=== PATIENT | male | born 1935 | race Caucasian/White ===

== ENCOUNTER 2016-06-02 11:39 | Inpatient (IN) ==
[2016-06-02 12:42] LABS: Immature Granulocytes % 0.2 % (0-4); Mean Corpuscular HGB Conc 34.6 g/dL (31.6-35.5); Red Cell Distribution Width 13.2 % (11.5-14.5)
[2016-06-02 12:43] LABS: Basophils % 0.3 %; Eosinophils # 4.9 K/mcL (0.0-0.6); Hematocrit 36.4 % (37.5-50.1); Hemoglobin 12.6 g/dL (12.9-16.9); Immature Platelets 2.7 % (1.1-6.1); Lymphocytes # 1.9 K/mcL (0.6-4.6); Lymphocytes % 16.3 %; Mean Corpuscular Hemoglobin 32.8 pg (28.0-33.3); Mean Corpuscular Volume 94.8 fL (83.0-100.0); Mean Platelet Volume 9.9 fL (9.4-12.4); Monocytes # 0.4 K/mcL (0.0-1.3); Monocytes % 3.7 %; Neutrophils # 4.4 K/mcL (1.6-8.9); Platelet Count 106 K/mcL (140-400); Red Blood Count 3.84 M/mcL (4.19-5.50); Segmented Neutrophils % 37.5 %
[2016-06-02 12:53] LABS: Alanine Aminotransferase 27 Units/L (0-55); Albumin 2.7 g/dL (3.5-5.0); Albumin/Globulin Ratio 0.9 (1.1-2.2); Alkaline Phosphatase 85 Units/L (38-126); Aspartate Amino Transferase 34 Units/L (5-34); BUN/Creatinine Ratio 18 (6-26); Bilirubin,Total 1.4 mg/dL (0.2-1.2); Blood Urea Nitrogen 18 mg/dL (8-26); Calcium 8.4 mg/dL (8.6-10.8); Carbon Dioxide 24 mEq/L (19-29); Chloride 106 mEq/L (98-109); Globulin 3.1 g/dL (2.4-3.5); Glucose 106 mg/dL (70-99); Osmolality,Calculated 284 (280-300); Potassium 3.9 mEq/L (3.5-4.5); Sodium 136 mEq/L (136-145); Total Protein 5.8 g/dL (6.0-8.3); eGFR For African Americans > 60 (> 60); eGFR For Non-African Americans > 60 (> 60)
[2016-06-02 13:00] LABS: Anisocytosis 1+ (Not Present); Platelet Estimate Slight Decrease (Normal)
[2016-06-02 13:01] LABS: Poikilocytosis 2+ (Not Present)
--- NOTE | 2016-06-02 13:23 | Emergency Department Note ---
Disposition Clinical Impression: Pneumonia, Mitral valve stenosis Disposition: Admitted As Inpatient Condition: Good General Adult HPI - General Chief complaint: ED Shortness of Breath/Dyspnea Stated complaint: cough, swelling Time Seen by Provider: 06/02/16 12:08 Source: patient, family Limitations: no limitations - History of Present Illness Pain Scale: 0 - Related Data Home Medications Medication Instructions Recorded Confirmed Albuterol Sulfate [Proair Hfa] 2 puff IH Q4H PRN 06/02/16 06/02/16 Aspirin [Lo-Dose Aspirin EC] 81 mg PO DAILY 06/02/16 06/02/16 Budesonide Neb [Pulmicort Neb] 0.5 mg IH DAILY 06/02/16 06/02/16 Cetirizine HCl [All Day Allergy] 10 mg PO DAILY 06/02/16 06/02/16 Cranberry Conc/C/Bacill Coag [Azo 1 tab PO DAILY 06/02/16 06/02/16 Cranberry Tablet] Docusate [Colace] 100 mg PO DAILY 06/02/16 06/02/16 Finasteride [Proscar] 5 mg PO DAILY 06/02/16 06/02/16 Formoterol Fumarate [Perforomist] 20 mcg IH BID 06/02/16 06/02/16 Ibuprofen [Motrin] 400 mg PO TID PRN 06/02/16 06/02/16 Levothyroxine [Synthroid] 50 mcg PO DAILY 06/02/16 06/02/16 Montelukast [Singulair] 10 mg PO DAILY 06/02/16 06/02/16 Simvastatin [Zocor] 20 mg PO DAILY 06/02/16 06/02/16 Tamsulosin [Flomax] 0.4 mg PO DAILY 06/02/16 06/02/16 Tramadol HCl [Ultram] 50 mg PO QID PRN 06/02/16 06/02/16 Allergies Allergy/AdvReac Type Severity Reaction Status Date / Time No Known Allergies Allergy Verified 06/02/16 12:01 Past Medical History - Past Medical History Medical history: Reports: asthma, COPD, CVA, hyperlipidemia, hypertension Psychiatric history: Reports: no psych history - Social History Smoking Status: Never smoker Smokeless Tobacco Status: No Alcohol use: Reports: none Drug use: Reports: none Physical Exam - General Limitations: no limitations General appearance: alert, in no apparent distress Course - Reevaluation(s) Reevaluation #1: I saw the patient with resident, Dr. Narvaez. Patient presents with shortness of breath. This is progressively worsening over days. It is so bad he cannot walk from one room to the bathroom without having to stop in the middle because of shortness of breath. Daughter says he had a really rough time last night with shortness of breath while trying to lay down. However patient denies feeling extra short of breath and laying down and states that he really gets more short of breath when he is up and exerting himself. He denies chest pain any time. Coughing up thick white stuff. Recently treated for pneumonia and was doing well then started getting sick again. We are trying to determine whether this is a recurrence of pneumonia or if this is congestive heart failure. He does have edema in his legs and a chest x-ray that looks like failure although the BNP is normal. Disposition will be based on the rest of the diagnostic results and reevaluation. Time: 13:23 Vital Signs Temperature 98.1 F 06/02/16 11:56 Pulse Rate 76 06/02/16 11:56 Respiratory Rate 18 06/02/16 11:56 Blood Pressure 148/88 06/02/16 11:56 O2 Sat by Pulse Oximetry 95 06/02/16 11:56 Temperature 97.5 F L 06/05/16 07:39 Pulse Rate 64 06/05/16 07:39 Respiratory Rate 17 06/05/16 07:39 Blood Pressure 111/61 06/05/16 07:39 O2 Sat by Pulse Oximetry 95 06/05/16 07:39 Oxygen Delivery Oxygen Delivery Room Air Medical Decision Making - Lab Data Result diagrams: 06/04/16 04:02 06/04/16 15:50 Lab Results 06/02/16 06/02/16 06/02/16 Range/Units 12:26 12:26 12:26 WBC 11.6 H (4.3-11.1) K/mcL RBC 3.84 L (4.19-5.50) M/mcL Hgb 12.6 L (12.9-16.9) g/dL Hct 36.4 L (37.5-50.1) % MCV 94.8 (83.0-100.0) fL MCH 32.8 (28.0-33.3) pg MCHC 34.6 (31.6-35.5) g/dL RDW 13.2 (11.5-14.5) % Plt Count 106 L (140-400) K/mcL MPV 9.9 (9.4-12.4) fL Immature Gran % 0.2 (0-4) % Seg Neutrophils % 37.5 % Lymphocytes % 16.3 % Monocytes % 3.7 % Eosinophils % 42.0 % Basophils % 0.3 % Neutrophils # 4.4 (1.6-8.9) K/mcL Lymphocytes # 1.9 (0.6-4.6) K/mcL Monocytes # 0.4 (0.0-1.3) K/mcL Eosinophils # 4.9 H (0.0-0.6) K/mcL Basophils # 0.0 (0.0-0.2) K/mcL Platelet Estimate Slight Decrease L (Normal) Immature Plt Fraction 2.7 (1.1-6.1) % Poikilocytosis 2+ A (Not Present) Anisocytosis 1+ A (Not Present) Smear Path Review See Below Sodium (136-145) mEq/L Potassium (3.5-4.5) mEq/L Chloride (98-109) mEq/L Carbon Dioxide (19-29) mEq/L BUN (8-26) mg/dL Creatinine (0.72-1.25) mg/dL Est GFR ( Amer) (> 60) Est GFR (Non-Af Amer) (> 60) BUN/Creatinine Ratio (6-26) Glucose (70-99) mg/dL Calculated Osmolality (280-300) Calcium (8.6-10.8) mg/dL Total Bilirubin (0.2-1.2) mg/dL AST (5-34) Units/L ALT (0-55) Units/L Alkaline Phosphatase (38-126) Units/L Troponin I 0.01 (0-0.03) ng/mL B-Natriuretic Peptide 92 (0-100) pg/mL Serum Total Protein (6.0-8.3) g/dL Albumin (3.5-5.0) g/dL Globulin (2.4-3.5) g/dL Albumin/Globulin Ratio (1.1-2.2) 01/02/17 Range/Units 12:26 WBC (4.3-11.1) K/mcL RBC (4.19-5.50) M/mcL Hgb (12.9-16.9) g/dL Hct (37.5-50.1) % MCV (83.0-100.0) fL MCH (28.0-33.3) pg MCHC (31.6-35.5) g/dL RDW (11.5-14.5) % Plt Count (140-400) K/mcL MPV (9.4-12.4) fL Immature Gran % (0-4) % Seg Neutrophils % % Lymphocytes % % Monocytes % % Eosinophils % % Basophils % % Neutrophils # (1.6-8.9) K/mcL Lymphocytes # (0.6-4.6) K/mcL Monocytes # (0.0-1.3) K/mcL Eosinophils # (0.0-0.6) K/mcL Basophils # (0.0-0.2) K/mcL Platelet Estimate (Normal) Immature Plt Fraction (1.1-6.1) % Poikilocytosis (Not Present) Anisocytosis (Not Present) Smear Path Review Sodium 136 (136-145) mEq/L Potassium 3.9 (3.5-4.5) mEq/L Chloride 106 (98-109) mEq/L Carbon Dioxide 24 (19-29) mEq/L BUN 18 (8-26) mg/dL Creatinine 0.99 (0.72-1.25) mg/dL Est GFR ( Amer) > 60 (> 60) Est GFR (Non-Af Amer) > 60 (> 60) BUN/Creatinine Ratio 18 (6-26) Glucose 106 H (70-99) mg/dL Calculated Osmolality 284 (280-300) Calcium 8.4 L (8.6-10.8) mg/dL Total Bilirubin 1.4 H (0.2-1.2) mg/dL AST 34 (5-34) Units/L ALT 27 (0-55) Units/L Alkaline Phosphatase 85 (38-126) Units/L Troponin I (0-0.03) ng/mL B-Natriuretic Peptide (0-100) pg/mL Serum Total Protein 5.8 L (6.0-8.3) g/dL Albumin 2.7 L (3.5-5.0) g/dL Globulin 3.1 (2.4-3.5) g/dL Albumin/Globulin Ratio 0.9 L (1.1-2.2) Attestation Statement - Attestation Attestation: I, Dr. Calvillo, examined this patient [id number] and my medical decision- making was reviewed with Dr. Narvaez, Resident Physician. I agree with the documented findings, disposition and treatment plan as described except to the extent set forth below. Please see my progress notes for details.
[2016-06-02] MEDS ORDERED: GI Cocktail 40 ML EACH PO ONE (13:34)
--- NOTE | 2016-06-02 14:13 | Emergency Department Note ---
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 Patient was diagnosed with pneumonia 3 weeks ago. Patient has been battling fatigue and exertional dyspnea since this time. However the patient's symptoms got worse and he is unable to make it to the restroom at this point. Patient has been coughing up white and green sputum. Patient has a history of mitral valve stenosis. Pain Scale: 0 - Related Data Home Medications Medication Instructions Recorded Confirmed Albuterol Sulfate [Proair Hfa] 2 puff IH Q4H PRN 06/02/16 06/02/16 Aspirin [Lo-Dose Aspirin EC] 81 mg PO DAILY 06/02/16 06/02/16 Budesonide Neb [Pulmicort Neb] 0.5 mg IH DAILY 06/02/16 06/02/16 Cetirizine HCl [All Day Allergy] 10 mg PO DAILY 06/02/16 06/02/16 Cranberry Conc/C/Bacill Coag [Azo 1 tab PO DAILY 06/02/16 06/02/16 Cranberry Tablet] Docusate [Colace] 100 mg PO DAILY 06/02/16 06/02/16 Finasteride [Proscar] 5 mg PO DAILY 06/02/16 06/02/16 Formoterol Fumarate [Perforomist] 20 mcg IH BID 06/02/16 06/02/16 Ibuprofen [Motrin] 400 mg PO TID PRN 06/02/16 06/02/16 Levothyroxine [Synthroid] 50 mcg PO DAILY 06/02/16 06/02/16 Montelukast [Singulair] 10 mg PO DAILY 06/02/16 06/02/16 Simvastatin [Zocor] 20 mg PO DAILY 06/02/16 06/02/16 Tamsulosin [Flomax] 0.4 mg PO DAILY 06/02/16 06/02/16 Tramadol HCl [Ultram] 50 mg PO QID PRN 06/02/16 06/02/16 Allergies Allergy/AdvReac Type Severity Reaction Status Date / Time No Known Allergies Allergy Verified 06/02/16 12:01 Constitutional: Reports: chills, weakness. Denies: fever Eyes: Denies: eye pain ENT ED: Denies: ear pain Cardiovascular: Denies: chest pain Respiratory: Reports: cough, dyspnea, wheezes Gastrointestinal: Denies: abdominal pain, nausea Genitourinary: Denies: urgency Musculoskeletal: Denies: back pain Integumentary: Denies: rash Neurological: Denies: headache, weakness Psychiatric: Denies: anxiety Endocrine: Denies: fatigue Hematological/Lymphatic: Denies: easy bleeding Past Medical History - Past Medical History Medical history: Reports: asthma, COPD, CVA, hyperlipidemia, hypertension Psychiatric history: Reports: no psych history - Social History Smoking Status: Never smoker Smokeless Tobacco Status: No Alcohol use: Reports: none Drug use: Reports: none Physical Exam - General Limitations: no limitations General appearance: alert, in no apparent distress - Head Head exam: atraumatic - Eye Eye exam: Present: normal appearance - ENT ENT exam: normal exam - Neck Neck exam: Present: normal inspection - Chest Chest inspection: Present: normal inspection - Respiratory Respiratory exam: Present: other (rales and rhonchi to right lobe.). Absent: respiratory distress - Cardiovascular Cardiovascular exam: Present: regular rate, normal rhythm - Abdominal Exam Abdominal exam: Present: soft, Non-Tender - Extremities Exam Extremities exam: Present: other (Slight swelling of the left leg but the patient states is consistent with previous episodes of swelling.) - Back Exam Back exam: Present: normal inspection - Neurological Exam Neurological exam: Present: alert, oriented X3 - Psychiatric Psychiatric exam: Present: normal affect Course - Reevaluation(s) Reevaluation #1: Patient findings discussed with patient and daughter. Patient has significant fatigue and decreased exertional dyspnea. Patient unable to go home at this time. Patient failed outpatient therapy on Augmentin. - Consultations Consultation #1: Discussed with Dr. Sanchez. Patient excepted for admission. Vital Signs Temperature 98.1 F 06/02/16 11:56 Pulse Rate 76 06/02/16 11:56 Respiratory Rate 18 06/02/16 11:56 Blood Pressure 148/88 06/02/16 11:56 O2 Sat by Pulse Oximetry 95 06/02/16 11:56 Temperature 98.1 F 06/02/16 11:56 Pulse Rate 67 06/02/16 16:56 Respiratory Rate 18 06/02/16 16:56 Blood Pressure 144/93 06/02/16 16:56 O2 Sat by Pulse Oximetry 96 06/02/16 16:56 Oxygen Delivery Oxygen Delivery Room Air Medical Decision Making - Medical Records Medical records reviewed: Yes I reviewed the patient's medical records. - Lab Data Lab results reviewed: Yes I reviewed the patient's lab results. Result diagrams: 06/02/16 12:26 06/02/16 12:26 Lab Results 06/02/16 06/02/16 06/02/16 Range/Units 12:26 12:26 12:26 WBC 11.6 H (4.3-11.1) K/mcL RBC 3.84 L (4.19-5.50) M/mcL Hgb 12.6 L (12.9-16.9) g/dL Hct 36.4 L (37.5-50.1) % MCV 94.8 (83.0-100.0) fL MCH 32.8 (28.0-33.3) pg MCHC 34.6 (31.6-35.5) g/dL RDW 13.2 (11.5-14.5) % Plt Count 106 L (140-400) K/mcL MPV 9.9 (9.4-12.4) fL Immature Gran % 0.2 (0-4) % Seg Neutrophils % 37.5 % Lymphocytes % 16.3 % Monocytes % 3.7 % Eosinophils % 42.0 % Basophils % 0.3 % Neutrophils # 4.4 (1.6-8.9) K/mcL Lymphocytes # 1.9 (0.6-4.6) K/mcL Monocytes # 0.4 (0.0-1.3) K/mcL Eosinophils # 4.9 H (0.0-0.6) K/mcL Basophils # 0.0 (0.0-0.2) K/mcL Platelet Estimate Slight Decrease L (Normal) Immature Plt Fraction 2.7 (1.1-6.1) % Poikilocytosis 2+ A (Not Present) Anisocytosis 1+ A (Not Present) Smear Path Review See Below Sodium (136-145) mEq/L Potassium (3.5-4.5) mEq/L Chloride (98-109) mEq/L Carbon Dioxide (19-29) mEq/L BUN (8-26) mg/dL Creatinine (0.72-1.25) mg/dL Est GFR ( Amer) (> 60) Est GFR (Non-Af Amer) (> 60) BUN/Creatinine Ratio (6-26) Glucose (70-99) mg/dL Calculated Osmolality (280-300) Calcium (8.6-10.8) mg/dL Total Bilirubin (0.2-1.2) mg/dL AST (5-34) Units/L ALT (0-55) Units/L Alkaline Phosphatase (38-126) Units/L Troponin I 0.01 (0-0.03) ng/mL B-Natriuretic Peptide 92 (0-100) pg/mL Serum Total Protein (6.0-8.3) g/dL Albumin (3.5-5.0) g/dL Globulin (2.4-3.5) g/dL Albumin/Globulin Ratio (1.1-2.2) 06/02/16 Range/Units 12:26 WBC (4.3-11.1) K/mcL RBC (4.19-5.50) M/mcL Hgb (12.9-16.9) g/dL Hct (37.5-50.1) % MCV (83.0-100.0) fL MCH (28.0-33.3) pg MCHC (31.6-35.5) g/dL RDW (11.5-14.5) % Plt Count (140-400) K/mcL MPV (9.4-12.4) fL Immature Gran % (0-4) % Seg Neutrophils % % Lymphocytes % % Monocytes % % Eosinophils % % Basophils % % Neutrophils # (1.6-8.9) K/mcL Lymphocytes # (0.6-4.6) K/mcL Monocytes # (0.0-1.3) K/mcL Eosinophils # (0.0-0.6) K/mcL Basophils # (0.0-0.2) K/mcL Platelet Estimate (Normal) Immature Plt Fraction (1.1-6.1) % Poikilocytosis (Not Present) Anisocytosis (Not Present) Smear Path Review Sodium 136 (136-145) mEq/L Potassium 3.9 (3.5-4.5) mEq/L Chloride 106 (98-109) mEq/L Carbon Dioxide 24 (19-29) mEq/L BUN 18 (8-26) mg/dL Creatinine 0.99 (0.72-1.25) mg/dL Est GFR ( Amer) > 60 (> 60) Est GFR (Non-Af Amer) > 60 (> 60) BUN/Creatinine Ratio 18 (6-26) Glucose 106 H (70-99) mg/dL Calculated Osmolality 284 (280-300) Calcium 8.4 L (8.6-10.8) mg/dL Total Bilirubin 1.4 H (0.2-1.2) mg/dL AST 34 (5-34) Units/L ALT 27 (0-55) Units/L Alkaline Phosphatase 85 (38-126) Units/L Troponin I (0-0.03) ng/mL B-Natriuretic Peptide (0-100) pg/mL Serum Total Protein 5.8 L (6.0-8.3) g/dL Albumin 2.7 L (3.5-5.0) g/dL Globulin 3.1 (2.4-3.5) g/dL Albumin/Globulin Ratio 0.9 L (1.1-2.2) - Radiology Data Radiology results reviewed: Yes I reviewed the patient's radiology results. - EKG Data EKG #1 EKG attestation: Yes I reviewed and interpreted this EKG. EKG results narrative: We did EKG shows sinus bradycardia with particular rate of 56 bpm. [place] interval 164. QRS 97. QTC 402. Patient has no ST elevations or depressions. No Q waves are present. EKG without acute changes compared to 12/26/14.
[2016-06-02] MEDS ORDERED: Levofloxacin 750 MG/150 ML 750 MG/150 ML BAG IVPB ONE (15:39)
[2016-06-02] MEDS ORDERED: Piperacillin/Tazobactam 3.375 GM in D5% in Water (Mini-Bag+) 100 ML IVPB ONE (15:39)
[2016-06-02] MEDS ORDERED: Furosemide 20 MG/2 ML VIAL IVP ONE (15:42)
[2016-06-02] MEDS ORDERED: Naloxone 0.4 MG/ML INJ IVP PRN (17:54)
[2016-06-02] MEDS ORDERED: traMADol 50 MG TABLET PO PRN (18:13)
[2016-06-02] MEDS ORDERED: Pantoprazole 40 MG VIAL IVP ONE (18:20)
--- NOTE | 2016-06-02 18:33 | Internal Med History&Physical ---
<Mago Alexis M - Last Filed: 06/02/16 19:14> Date of Encounter: 06/02/16 Time of Encounter: 18:25 Assessment and Plan (1) Pneumonia Current visit: Yes Status: Acute Patient presents with cough and shortness of breath, CXR show bibasilar opacities and bilateral effusion. He was diagnosed with pneumonia 3 weeks ago and treated with steroids and Augmentin as an outpatient. ED initiated Levaquin and Zosyn. Will continue Levaquin. Will obtain 2 view CXR tomorrow to reassess. titrate O2 to maintain O2 saturation > 92%, Duoneb treatments QIDR Qualifiers: Pneumonia type: due to unspecified organism Laterality: bilateral Lung location: unspecified part of lung Qualified Code(s): J18.9 - Pneumonia, unspecified organism (2) Acute exacerbation of chronic obstructive airways disease Current visit: Yes Status: Acute Patient presents with cough and increasing shortness of breath. Was treated for pneumonia with Augmentin and steroids 3 weeks ago. CXR showed bibasilar opacities and bilateral effusions. Lungs with mild wheeze on expiration. Satting 95% on room air. Prednisone 40mg PO daily Duoneb treatments QIDR titrate O2 to maintain O2 saturation > 92% (3) Leg edema, left Current visit: Yes Status: Acute Patient's left leg reportedly always swells more than right due to history of left hip replacement. He reports his left leg has felt heavier and "like weight" over the last week. capillary refill normal, sensation intact. Will get Left lower extremity vascular dopplers to rule out DVT (4) Chest pain Current visit: Yes Status: Acute Patient reports he had burning chest pain last night and today unrelieved by tums, though he describes it at "heartburn" and that he can feel the acid and it comes at goes. EKG with NSR. initial troponin 0.01. GI cocktail in ED releived his pain. Will start him on PPI. Will trend troponins. Qualifiers: Chest pain type: precordial chest pain Qualified Code(s): R07.2 - Precordial pain (5) DVT prophylaxis Current visit: Yes Status: Acute Will rule out DVT in LLE. Once ruled out, will initiate mechanical prophylaxis. Patient with thrombocytopenia, PLT of 106, so pharmacologic prophylaxis not warranted at this point. Internal Medicine - H&P: HPI Chief complaint: shortness of breath Admitted From: Emergency Dept Plans for Post Hospital Care: Home History of present illness: Mr. Keenan is a 80 year old male with history of COPD, TIA, mitral valve stenosis, hypertension, hyperlipidemia who was brought to the emergency department by his daughter for increasing shortness of breath. Patient had difficulty walking today due to shortness of breath. 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 His daughter reports he seemed to be doing better for a few days and then started to decline. He also reports heartburn with onset last evening unrelieved by Tums he describes it as a burning chest pain and he feels the acid. Daughter states that he has never had acid reflux in the past like this, just heartburn from time to time. He also reports his left leg has been more swollen and feels like weight over the last week. History of a left hip replacement and his left leg does tend to swell more than his right historically. He reports he has been coughing on and off with clear to white sputum. He denies any fever, headache, palpitations, chills, nausea, vomiting, or diarrhea. Evaluation in the emergency department showed a chest x-ray with bibasilar opacities and bilateral effusions interpreted as pulmonary edema with possible superimposed infection. Troponin was negative at 0.01, BNP normal at 92. Platelets were low at 106. On exam the patient appears cachexic, comfortable, is alert and oriented 3, satting 95% on room air. His lungs have mild expiratory wheeze right worse than left. Heart with regular rate and rhythm. Right ankle appears deformed with swelling. Patient's daughter reports that is chronic. Left leg more swollen than the right, with +2 edema. The patient's case was discussed with Dr. Sanchez, and he agreed with the assessment and plan set forth. Past Med Surg Social Fam HX - Past Medical History Medical history: asthma, COPD, CVA, hyperlipidemia, hypertension, valvular heart disease (mitral valve stenosis) Psychiatric history: no psych history - Past Surgical History Surgical History: hip replacement (left) - Social History Smoking Status: Never smoker Smokeless Tobacco Status: No Alcohol use: none Drug use: none - Family History Mother Living Status: Internal Medicine - H&P: Meds Albuterol Sulfate [Proair Hfa] 2 puff IH Q4H PRN 06/02/16 [History] Aspirin [Lo-Dose Aspirin EC] 81 mg PO DAILY 06/02/16 [History] Budesonide Neb [Pulmicort Neb] 0.5 mg IH DAILY 06/02/16 [History] Cetirizine HCl [All Day Allergy] 10 mg PO DAILY 06/02/16 [History] Cranberry Conc/C/Bacill Coag [Azo Cranberry Tablet] 1 tab PO DAILY 06/02/16 [ History] Docusate [Colace] 100 mg PO DAILY 06/02/16 [History] Finasteride [Proscar] 5 mg PO DAILY 06/02/16 [History] Formoterol Fumarate [Perforomist] 20 mcg IH BID 06/02/16 [History] Ibuprofen [Motrin] 400 mg PO TID PRN 06/02/16 [History] Levothyroxine [Synthroid] 50 mcg PO DAILY 06/02/16 [History] Montelukast [Singulair] 10 mg PO DAILY 06/02/16 [History] Simvastatin [Zocor] 20 mg PO DAILY 06/02/16 [History] Tamsulosin [Flomax] 0.4 mg PO DAILY 06/02/16 [History] Tramadol HCl [Ultram] 50 mg PO QID PRN 06/02/16 [History] Allergies No Known Allergies Allergy (Verified 06/02/16 12:01) All Systems PM: A 10-system review of systems was performed and is negative for pertinent findings except as documented above in the HPI. - Constitutional Constitutional: anorexia, no chills, no fever(s), no night sweats - EENT Eyes: no change in vision, no discharge, no pain, no photophobia Nose, mouth and throat: no dysphagia, no nasal discharge, no neck pain, no sore throat - Cardiovascular Cardiovascular ROS IM: chest pain (burning), no diaphoresis, no dyspnea, no lightheadedness, no palpitations, no syncope - Respiratory Respiratory: cough, dyspnea, dyspnea on exertion, no wheezing, no excessive phlegm production - Gastrointestinal Gastrointestinal: constipation, no abdominal pain, no diarrhea, no hematemesis, no hematochezia, no melena, no nausea, no vomiting - Genitourinary Genitourinary ROS male: difficulty urinating, urinary hesitancy - Musculoskeletal Musculoskeletal ROS IM: no numbness, no tingling - Integumentary Integumentary IM: no rash, no unusual bruising - Neurological Neurological ROS: no confusion, no convulsions, no focal weakness, no numbness, no tingling, no tremor(s) - Hematologic/Lymphatic Hematologic/Lymphatic: no easy bruising - Constitutional Vitals: Temp Pulse Resp BP Pulse Ox 0 F L 67 18 151/94 96 06/02/16 17:41 06/02/16 16:56 06/02/16 17:41 06/02/16 17:41 06/02/16 16:56 General appearance: Present: cachectic, A&O X 3, pleasant, no acute distress - Head Head exam: Present: atraumatic, normocephalic - Eye Eye exam: Present: PERRL, conjuntiva pink, sclera anicteric Pupils: Present: PERRL - Neck Neck exam general surgery: Present: supple, trachea midline. Absent: lymphadenopathy - Respiratory Respiratory exam: Present: wheezes. Absent: accessory muscle use, rales, rhonchi - Cardiovascular Cardiovascular exam: Present: RRR, +S1, +S2. Absent: diastolic murmur, gallop, rubs, systolic murmur - GI/Abdominal GI/Abdominal exam: Present: hernia (right inguinal), normal bowel sounds, soft, no peritoneal signs. Absent: distended, tenderness - Extremities Exam Extremities exam: Present: pedal edema, warm, radial pulses palpable and symetrical. Absent: calf tenderness, cyanotic Additional comments: right ankle edema, left leg edema - Neurological Exam Neurological exam: Present: CN II-XII intact, oriented X3, no focal deficits. Absent: facial droop, speech deficit - Skin Skin exam: Present: dry, intact Internal Med - H&P Results - Labs CBC & Chem 7: 06/02/16 12:26 06/02/16 12:26 <Yayo Sanchez - Last Filed: 06/03/16 14:57> Date of Encounter: 06/03/16 Internal Medicine - H&P: HPI History of present illness: Mr. Keenan is a 80 year old male All Systems PM: A 10-system review of systems was performed and is negative for pertinent findings except as documented above in the HPI. - Constitutional Vitals: Temp Pulse Resp BP Pulse Ox 97.3 F L 78 18 130/76 95 06/03/16 11:14 06/03/16 11:14 06/03/16 11:14 06/03/16 13:00 06/03/16 11:14 Internal Med - H&P Results - Labs CBC & Chem 7: 06/03/16 00:54 06/03/16 00:54 Labs: Short CBC 06/03/16 Range/Units 00:54 WBC 8.0 (4.3-11.1) K/mcL Hgb 11.0 L D (12.9-16.9) g/dL Hct 31.8 L (37.5-50.1) % Plt Count 79 L (140-400) K/mcL Neutrophils # 3.9 (1.6-8.9) K/mcL BMP 06/03/16 00:54 Sodium 135 L Potassium 3.8 Chloride 106 Carbon Dioxide 25 BUN 18 Creatinine 0.97 Glucose 92 Calcium 7.6 L Cardiac Enzymes 06/02/16 06/03/16 Range/Units 18:49 00:54 Troponin I 0.01 0.01 (0-0.03) ng/mL Urine 06/02/16 Range/Units 20:10 Urine Color Yellow (Yellow) Urine Clarity Clear (Clear) Urine pH 7.5 (5.0-8.0) pH Units Ur Specific Cooter 1.008 L (1.010-1.025) Urine Protein Negative (Neg-Trace) mg/dL Urine Glucose (UA) Normal (Normal) mg/dL - Impressions ITS Impressions Chest X-Ray 06/03/16 08:00 IMPRESSION: Evidence of mild residual congestive failure with asymmetric basilar airspace disease greater left lower lobe. Superimposed pneumonia considered. D/ / Mack Goldberg MD / Mack Goldberg MD Interpreting Provider: Mack Goldberg MD - Attending Attestation The patient was seen and examined by me independently. I agree with the assessment, plan, physical examination findings as documented by our nurse practitioner, Mago Alexis. Briefly, patient with clinical findings concerning for community-acquired pneumonia along with some fluid overload was admitted. Will continue with IV antibiotics and will give Lasix. Monitor electrolytes and kidney function tests while inpatient. Plan of care was discussed in detail with the patient.
[2016-06-02] MEDS: *HR* Heparin 5,000 UNIT/ML VIAL SQ SCH (18:51)
[2016-06-02 20:26] LABS: Bilirubin,Urine Negative (Negative); Blood,Urine Large (Negative); Clarity,Urine Clear (Clear); Color,Urine Yellow (Yellow); Glucose,Urine (UA) Normal (Normal); Ketones,Urine Negative (Negative); Leukocyte Esterase,Urine Negative (Negative); Nitrite,Urine Negative (Negative); PH,Urine 7.5 pH Units (5.0-8.0); Protein,Urine Negative (Neg-Trace); Specific Gravity,Urine 1.008 (1.010-1.025); Urobilinogen,Urine Normal (Normal)
[2016-06-02 20:46] LABS: Bacteria,Urine None Seen per hpf (None-Few); Hyaline Casts,Urine None Seen per lpf (None-Few); RBC,Urine 15-30 per hpf (0-3)
[2016-06-02] MEDS: Ipratropium/Albuterol Neb 3 ML IH SCH (22:21)
[2016-06-03 01:17] LABS: Mean Platelet Volume 10.1 fL (9.4-12.4); Red Cell Distribution Width 13.2 % (11.5-14.5)
[2016-06-03 01:19] LABS: Basophils % 0.3 %; Eosinophils # 2.3 K/mcL (0.0-0.6); Eosinophils % 28.6 %; Hematocrit 31.8 % (37.5-50.1); Immature Granulocytes % 0.4 % (0-4); Immature Platelets 2.4 % (1.1-6.1); Lymphocytes # 1.5 K/mcL (0.6-4.6); Lymphocytes % 18.4 %; Mean Corpuscular HGB Conc 34.6 g/dL (31.6-35.5); Mean Corpuscular Hemoglobin 32.5 pg (28.0-33.3); Mean Corpuscular Volume 94.1 fL (83.0-100.0); Monocytes # 0.3 K/mcL (0.0-1.3); Monocytes % 3.4 %; Neutrophils # 3.9 K/mcL (1.6-8.9); Red Blood Count 3.38 M/mcL (4.19-5.50); Segmented Neutrophils % 48.9 %
[2016-06-03 01:21] LABS: Platelet Count 79 K/mcL (140-400)
[2016-06-03 01:22] LABS: INR 1.4; Prothrombin Time 15.6 Seconds (9.4-12.1)
[2016-06-03 01:25] LABS: Activated Partial Thrombo Time 31.5 Seconds (26.0-36.0)
[2016-06-03 01:30] LABS: BUN/Creatinine Ratio 19 (6-26); Blood Urea Nitrogen 18 mg/dL (8-26); Calcium 7.6 mg/dL (8.6-10.8); Carbon Dioxide 25 mEq/L (19-29); Chloride 106 mEq/L (98-109); Glucose 92 mg/dL (70-99); Osmolality,Calculated 282 (280-300); Potassium 3.8 mEq/L (3.5-4.5); Sodium 135 mEq/L (136-145); eGFR For African Americans > 60 (> 60); eGFR For Non-African Americans > 60 (> 60)
[2016-06-03 01:41] LABS: Platelet Estimate Decreased (Normal)
[2016-06-03] MEDS: (Formoterol Fumarate [Perforomist] 20 MCG) IH SCH ×2 (02:04→09:28)
[2016-06-03] MEDS: Ipratropium/Albuterol Neb 3 ML IH SCH ×4 (03:35→22:29)
[2016-06-03] MEDS: *HR* Heparin 5,000 UNIT/ML VIAL SQ SCH ×2 (06:30→18:03)
[2016-06-03] MEDS: Aspirin Enteric Coated 81 MG Tablet PO SCH (09:26)
[2016-06-03] MEDS: Finasteride 5 MG TABLET PO SCH (09:26)
[2016-06-03] MEDS: Loratadine 10 MG TABLET PO SCH (09:27)
--- NOTE | 2016-06-03 10:01 | Electrocardiograph Report ---
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
--- NOTE | 2016-06-03 10:08 | Venous Imaging Report ---
LE Venous Duplex Patient Name:Branden Keenan Order Number:[id number] Procedure Date:06/02/2016 Date:8Age:80 yrs Gender:Male Rt.BP:153 / 90 mmHgHeart Rate: Location:[facility] Room #: 3B38 Supply Chain Intern:Shandra Sánchez Referring MD:Mago Alexis [employer]HR[employer] SORTER GRADER content analyst:Racquel Sharp MD Reading MD:Alphonse Menendez MD Primary Indications:Swelling of limb Secondary Indications: Impressions: Recommendations: Preliminary given to Yassine Marin RN. Test completed on 06/02/2016 at 8:29:00 pm. Findings Venous Duplex Results: Left: Venous imaging of the lower extremity reveals full patency and normal vessel compressibility of the left distal iliac, left common femoral, left superficial femoral, left popliteal, left posterior tibial, left peroneal, left great saphenous and left lesser saphenous. Doppler signals in the evaluated veins were normal. The left peroneal vein was not well visualized. Prior Study: No prior study available for comparison. Lower Extremity Venous Duplex Side Vein Compress Spontaneous Flow Augment Diameter (cm) Depth (cm) Left Distal Iliac Normal Yes Phasic Yes Left Common Femoral Normal Yes Phasic Yes Left Superficial Femoral Normal Yes Phasic Yes Left Popliteal Normal Yes Phasic Yes Left Posterior Tibial Normal Yes Phasic Yes Left Peroneal Normal Yes Phasic Yes Left Great Saphenous Normal Yes Phasic Yes Left Lesser Saphenous Normal Yes Phasic Yes Updated by Alphonse Menendez MD on 06/03/2016 10:02:47 AM electronically signed on 06/03/2016 10:03:02 AM with status of Final
[2016-06-03] MEDS: Budesonide Neb 0.5 MG/2 ML IH SCH (10:49)
--- NOTE | 2016-06-03 12:47 | Cardiology Consult Note ---
<Jamarcus Archer R - Last Filed: 06/03/16 13:14> Date of Encounter: 06/03/16 Time of Encounter: 12:41 Assessment and Plan (1) Mitral valve stenosis Current Visit: Yes Status: Acute Known severe mitral stenosis. Pt had echo here 08/2014, then [place] 11/2014. He was referred to Dr. Gregory Yuen at [facility] for evaluation of his mitral valve. CAT was done at [facility]--do not have records. Per pt's daughter, plan was for balloon valvuloplasty. Also per pt and daughter, the surgery was scheduled without their knowledge, so they did not show up and have not followed up since. Severe MS likely contributing to pt's symptom of dyspnea. Recommend pt re-establish with [facility] and Dr. Gregory Yuen to have surgery. Follow-up with [facility] as outpt in 3-4 weeks. Will send message to our office to start process of referring back to [facility]. No repeat echo is necessary since we are already aware of severe MS. Will add low dose BB. Qualifiers: Cardiac valve disease etiology: etiology unspecified Qualified Code(s): I05.0 - Rheumatic mitral stenosis (2) Hypertension Current Visit: Yes Status: Acute BP recorded as 199 systolic at 1100. Suspect documentation error, as just rechecked and was 130/76. Will add low dose BB to lower HR given severe MS. Qualifiers: Hypertension type: essential hypertension Qualified Code(s): I10 - Essential (primary) hypertension (3) CAD (coronary artery disease) Current Visit: Yes Status: Acute [place] 11/2014---single vessel CAD without intervention. Troponins negative. Continue ASA, Statin. Add low dose BB. Qualifiers: Coronary Disease-Associated Artery/Lesion type: [place] artery [place] vs. transplanted heart: [place] heart Associated angina: without angina Qualified Code(s): I25.10 - Atherosclerotic heart disease of [place] coronary artery without angina pectoris Discussion w patient/family: The assessment and plan as outlined above was discussed with the patient and/or family members who expressed understanding and agreement. All questions were answered. Thank you for involving us in the care of your patient. Please call with any questions. I will discuss all the above with Dr. aGrcía and make changes as necessary. History of Present Illness Consult date: 06/03/16 Requesting physician: Abbie Venegas Consult reason: Severe mitral stenosis Chief complaint: dyspnea History of present illness: Mr. Keenan is a 80 year old male with PMH of COPD, TIA, mitral valve stenosis, hypertension, hyperlipidemia, CAD, who was brought to the ER by his daughter for increasing shortness of breath. Patient had difficulty walking due to shortness of breath. 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 His daughter reports he seemed to be doing better for a few days and then started to decline. He also reports heartburn, but denies actual chest pain. He also reports his left leg has been more swollen and feels like weight over the last week. History of a left hip replacement and his left leg does tend to swell more than his right. He reports cough with clear to white sputum. CXR showed bibasilar opacities and bilateral effusions interpreted as pulmonary edema with possible superimposed infection. He is currently being treated for COPD exacerbation and PNA. Regarding severe mitral stenosis, pt was seen by Dr. García 12/2014, referred to Dr. Gregory Yuen at [facility]. Per pt and daughter, he was seen there twice. The plan was for a balloon valvuloplasty, but never followed through and per daughter, surgery was scheduled, they were not aware and did not show up. He has not followed up since. Past Med Surg Social Fam HX - Past Medical History Medical history: asthma, COPD, CVA, hyperlipidemia, hypertension, valvular heart disease (mitral valve stenosis) Psychiatric history: no psych history - Past Surgical History Surgical History: hip replacement (left) - Social History Smoking Status: Never smoker Smokeless Tobacco Status: No Alcohol use: none Drug use: none - Family History Mother Living Status: Medications and Allergies Albuterol Sulfate [Proair Hfa] 2 puff IH Q4H PRN 06/02/16 [History] Aspirin [Lo-Dose Aspirin EC] 81 mg PO DAILY 06/02/16 [History] Budesonide Neb [Pulmicort Neb] 0.5 mg IH DAILY 06/02/16 [History] Cetirizine HCl [All Day Allergy] 10 mg PO DAILY 06/02/16 [History] Cranberry Conc/C/Bacill Coag [Azo Cranberry Tablet] 1 tab PO DAILY 06/02/16 [ History] Docusate [Colace] 100 mg PO DAILY 06/02/16 [History] Finasteride [Proscar] 5 mg PO DAILY 06/02/16 [History] Formoterol Fumarate [Perforomist] 20 mcg IH BID 06/02/16 [History] Ibuprofen [Motrin] 400 mg PO TID PRN 06/02/16 [History] Levothyroxine [Synthroid] 50 mcg PO DAILY 06/02/16 [History] Montelukast [Singulair] 10 mg PO DAILY 06/02/16 [History] Simvastatin [Zocor] 20 mg PO DAILY 06/02/16 [History] Tamsulosin [Flomax] 0.4 mg PO DAILY 06/02/16 [History] Tramadol HCl [Ultram] 50 mg PO QID PRN 06/02/16 [History] Allergies No Known Allergies Allergy (Verified 06/02/16 12:01) All Systems Review: A 10-system review of systems was performed and is negative for pertinent findings except as documented above in the HPI. - Cardiovascular Cardiovascular: as per HPI, dyspnea at rest, dyspnea on exertion, leg edema - Respiratory Respiratory: cough, dyspnea Physical Examination Vital Signs, Last 4 Hours Temp Pulse Resp BP Pulse Ox 06/03/16 11:14 97.3 F L 78 18 199/77 95 Vital Signs Temp Pulse Resp BP Pulse Ox 06/03/16 11:14 97.3 F L 78 18 199/77 95 06/03/16 07:33 98.1 F 72 17 113/70 95 06/03/16 03:33 98.3 F 68 15 106/61 98 06/03/16 00:36 97.6 F 70 15 115/69 98 06/02/16 18:45 97.3 F L 67 16 153/90 99 06/02/16 17:41 0 F L 18 151/94 06/02/16 16:56 67 18 144/93 96 06/02/16 13:35 65 18 160/97 98 Intake and Output 06/02/16 06/03/16 06/03/16 23:59 07:59 15:59 Intake Total 250 / 250 200 / 200 240 / 240 Output Total 600 / 600 1200 / 1200 Balance -350 / -350 -1000 / -1000 240 / 240 Intake: IV Fluids 250 / 250 Levaquin 750mg/150 mL 750 150 / 150 mg In 150 ml @ 100 mls/ hr IVPB ONCE ONE Rx#: [id number] Zosyn 3.375 GM In 100 / 100 Dextrose 5% (Minibag+) 100 ML 100 ML @ 25 mls/hr IVPB ONCE ONE Rx#: [id number] Oral 200 / 200 240 / 240 Output: Urine 600 / 600 Urethral (Pierce) 600 / 600 Catheter 1200 / 1200 Other: Meal Breakfast Percent of Meal Consumed 30% Weight 63.503 kg 64 kg Patient Weight 06/03/16 23:59 Weight 64 kg General: Conversant, No Apparent Distress HEENT: Atraumatic, Normocephaly, Mucus Membranes Moist Neck: No JVD, Normal carotid pulses Cardiac: Reg Rate and Rhythm, Normal S1 and S2, Other (murmur noted) Lungs: Other (mild wheezes) Neuro: Alert and responsive, No focal deficits noted Abdomen: Soft, Non-Tender Skin: No rashes noted on visualized skin Musculoskeletal: No Chest Wall Tenderness Extremities: No Clubbing, No Cyanosis, Other (left lower extremity more swollen than right.) Results 06/03/16 00:54 06/03/16 00:54 Lab Results 06/02/16 06/03/16 06/03/16 18:49 00:54 00:54 WBC 8.0 Hgb 11.0 L D Hct 31.8 L Plt Count 79 L INR APTT Sodium 135 L Potassium 3.8 Chloride 106 Carbon Dioxide 25 BUN 18 Creatinine 0.97 Glucose 92 Calcium 7.6 L Troponin I 0.01 06/03/16 06/03/16 00:54 00:54 WBC Hgb Hct Plt Count INR 1.4 APTT 31.5 Sodium Potassium Chloride Carbon Dioxide BUN Creatinine Glucose Calcium Troponin I 0.01 Short CBC 06/03/16 06/02/16 Range/Units 00:54 12:26 WBC 8.0 11.6 H (4.3-11.1) K/mcL Hgb 11.0 L D 12.6 L (12.9-16.9) g/dL Hct 31.8 L 36.4 L (37.5-50.1) % Plt Count 79 L 106 L (140-400) K/mcL Neutrophils # 3.9 4.4 (1.6-8.9) K/mcL BMP 06/03/16 Range/Units 00:54 Sodium 135 L (136-145) mEq/L Potassium 3.8 (3.5-4.5) mEq/L Chloride 106 (98-109) mEq/L Carbon Dioxide 25 (19-29) mEq/L BUN 18 (8-26) mg/dL Creatinine 0.97 (0.72-1.25) mg/dL Glucose 92 (70-99) mg/dL Calcium 7.6 L (8.6-10.8) mg/dL Cardiac Enzymes 06/03/16 06/02/16 06/02/16 Range/Units 00:54 18:49 12:26 Troponin I 0.01 0.01 0.01 (0-0.03) ng/mL Urine 06/02/16 Range/Units 20:10 Urine Color Yellow (Yellow) Urine Clarity Clear (Clear) Urine pH 7.5 (5.0-8.0) pH Units Ur Specific [place] 1.008 L (1.010-1.025) Urine Protein Negative (Neg-Trace) mg/dL Urine Glucose (UA) Normal (Normal) mg/dL Impressions Chest X-Ray 06/02/16 12:15 IMPRESSION: 1. Interval appearance of bibasilar opacities and bilateral effusions including fluid tracking within the right minor fissure. Findings are suspicious for pulmonary edema although superimposed infection cannot be excluded. D/ / 06/02/2016 12:50:02 Divya Leiva MD / urbano Interpreting Provider: Divya Leiva MD Chest X-Ray 06/03/16 08:00 IMPRESSION: Evidence of mild residual congestive failure with asymmetric basilar airspace disease greater left lower lobe. Superimposed pneumonia considered. D/ / Mack Goldberg MD / Mack Goldberg MD Interpreting Provider: Mack Goldberg MD Active Medications Albuterol/Ipratropium (Duoneb) 3 ml IH [id number] KRISTIAN PRN Reason: Protocol Stop: 12/02/16 22:01 Last Admin: 06/03/16 10:49 Dose: 3 ml Aspirin (Aspirin Ec) 81 mg PO DAILY [facility] Stop: 12/03/16 09:01 Last Admin: 06/03/16 09:26 Dose: 81 mg Budesonide (Pulmicort Neb) 0.5 mg IH DAILYR [facility] Stop: 12/03/16 10:01 Last Admin: 06/03/16 10:49 Dose: 0.5 mg Docusate Sodium (Colace) 100 mg PO BID PRN PRN Reason: Constipation Stop: 12/02/16 17:55 Finasteride (Proscar) 5 mg PO DAILY KRISTIAN PRN Reason: Protocol Stop: 12/03/16 09:01 Last Admin: 06/03/16 09:26 Dose: 5 mg Heparin Sodium (Porcine) (Heparin) 5,000 unit SQ Q12HR [facility] Stop: 12/02/16 18:01 Last Admin: 06/03/16 06:30 Dose: 5,000 unit Levofloxacin/Dextrose (Levaquin 500mg/100ml) 500 mg in 100 mls @ 100 mls/hr IVPB Q24H KRISTIAN PRN Reason: Protocol Stop: 12/03/16 17:31 Levothyroxine Sodium (Synthroid) 50 mcg PO DAILY [facility] Stop: 12/03/16 09:01 Last Admin: 06/03/16 09:27 Dose: 50 mcg Loratadine (Claritin) 10 mg PO DAILY [facility] Stop: 12/03/16 09:01 Last Admin: 06/03/16 09:27 Dose: 10 mg Montelukast Sodium (Singulair) 10 mg PO DAILY [facility] Stop: 12/03/16 09:01 Last Admin: 06/03/16 09:26 Dose: 10 mg Naloxone HCl (Narcan) 0.4 mg IVP Q2MIN PRN PRN Reason: Opioid Reversal Stop: 12/02/16 17:55 (Formoterol Fumarate [Perforomist] 20 Mcg) 20 mcg IH BID [facility] Stop: 12/02/16 21:01 Last Admin: 06/03/16 09:28 Dose: Not Given Omeprazole (Prilosec) 20 mg PO DAILY@0630 KRISTIAN PRN Reason: Protocol Stop: 12/03/16 06:31 Last Admin: 06/03/16 06:30 Dose: 20 mg Simvastatin (Zocor) 20 mg PO DAILY KRISTIAN PRN Reason: Protocol Stop: 12/03/16 09:01 Last Admin: 06/03/16 09:26 Dose: 20 mg Tamsulosin HCl (Flomax) 0.4 mg PO DAILY KRISTIAN PRN Reason: Protocol Stop: 12/03/16 09:01 Last Admin: 06/03/16 09:27 Dose: 0.4 mg Tramadol HCl (Ultram) 50 mg PO QID PRN PRN Reason: Moderate Pain Stop: 12/02/16 18:14 - Imaging and Cardiology Chest Xray: report reviewed Echo: report reviewed (09/01/14--Impressions: LVEF 55%. Overall, LV appears to have normal structure and function. Mild left ventricular diastolic dysfunction. Normal right ventricular structure and function. Compared to prior study, left atrium now appears at least moderately dilated. Mild mitral annular calcification. Moderately thickened mitral valve leaflets with near fusion along the leaflet tips. Turbulent mitral inflow noted. Mild mitral stenosis suggested by a mean gradient of 4 mmHg (HR 50s). Valve area by PHT is 1.14 cm2. Mild mitral regurgitation. Unable to estimate RVSP due to lack of adequate TR jet. I suspect severity of mitral stenosis is underestimated by Doppler - visually it appears worse than mild. Consider CAT and right/left heart catheterization to further evaluate.) Cardiac cath: report reviewed (12/26/14--Impressions: Single vessel coronary artery disease. The left ventricle is normal and has normal contractility EF 60 % There is mild pulmonary hypertension. Severe mitral stenosis. Recommendations: Optimal medical therapy of patient's disease. Aggressive risk factor modification. Evaluate for mitral valve surgery.) - EKG Interpretation EKG results cardiology: personally reviewed (sinus giancarlo, rate 56), other (12 hour tele AVG HR 71, sinus rhythm. No significant pauses or arrhythmias.) Consult Discharge Plan - Plan Referrals: Racquel Sharp MD [Primary Care Provider] - <Pauline García - Last Filed: 06/03/16 15:28> Date of Encounter: 06/03/16 Assessment and Plan Discussion w patient/family: The assessment and plan as outlined above was discussed with the patient and/or family members who expressed understanding and agreement. All questions were answered. Thank you for involving us in the care of your patient. Please call with any questions. History of Present Illness History of present illness: Mr. Keenan is a 80 year old male All Systems Review: A 10-system review of systems was performed and is negative for pertinent findings except as documented above in the HPI. Physical Examination Vital Signs, Last 4 Hours BP 06/03/16 13:00 130/76 Results 06/03/16 00:54 06/03/16 00:54 Lab Results 06/02/16 06/03/16 06/03/16 18:49 00:54 00:54 WBC 8.0 Hgb 11.0 L D Hct 31.8 L Plt Count 79 L INR APTT Sodium 135 L Potassium 3.8 Chloride 106 Carbon Dioxide 25 BUN 18 Creatinine 0.97 Glucose 92 Calcium 7.6 L Troponin I 0.01 06/03/16 06/03/16 00:54 00:54 WBC Hgb Hct Plt Count INR 1.4 APTT 31.5 Sodium Potassium Chloride Carbon Dioxide BUN Creatinine Glucose Calcium Troponin I 0.01 - Attending Attestation I examined this patient and my medical decision-making was reviewed with the [employer] MANAGER/PA/Advanced Practice Nurse/Resident Physician. I agree with the documented findings, disposition and treatment plan. Mr. Keenan is known to me from the outpatient setting. I last saw him in December 2014 when referring him to Dr. Gregory Yuen for treatment of mitral stenosis. He states that he was worked up and the procedure was planned but somehow got the date wrong and never returned. He is interested in following up. We have communicated with our office to contact Dr. Gregory Yuen. I would like to see the patient in the office in a few weeks. Otherwise, we have started him on a beta brayan. No further recommendations. We will sign off. Please call with questions.
--- NOTE | 2016-06-03 14:44 | Internal Med Progress Note ---
<Abbie Venegas - Last Filed: 06/03/16 16:12> Date of Encounter: 06/03/16 Time of Encounter: 09:25 - Assessment and plan (1) Pneumonia Current Visit: Yes Status: Acute Assessment and plan: Presents with cough and shortness of breath CXR on admission demonstrates Bilateral opacities and bilateral effusion. Pt was diagnosed with pneumonia 3 weeks ago and treated with steroids and Augmentin as an outpatient 2 view CXR demonstrated evidence of mild residual congestive failure with asymmetric basilar airspace disease greater in LLL, with superimposed pneumonia considered ED gave Levaquin and Zosyn, Levaquin continued. O2 today was 95% on room air Qualifiers: Pneumonia type: due to unspecified organism Laterality: bilateral Lung location: unspecified part of lung Qualified Code(s): J18.9 - Pneumonia, unspecified organism (2) Acute exacerbation of chronic obstructive airways disease Current Visit: Yes Status: Acute Assessment and plan: Presented with cough and increasing shortness of breath, previously treatment outpatient for pneumonia by shopper's aide. CXR demonstrated bibasilar opacities and bilateral effusions. Wheezes on lung exam O2 95% on room air Duoneb treatments qid (3) Mitral valve stenosis Current Visit: Yes Status: Acute Assessment and plan: Pt with known severe Mitral stenosis Cardiology consulted Per Cardiology: Echo at [place] 08/2014, then [facility] 11/[address] Gregory Yuen at [facility] at that time, however, per daughter, the surgery was scheduled without their knowledge, so they did not show up and they have not followed up since Severe MS likely contributing to pts symptom of dyspnea Recommended re-establish with [facility] and Dr. Gregory Yuen to have surgery Follow-up with [place] [facility] in 3-4 weeks Started on low dose BB Qualifiers: Cardiac valve disease etiology: etiology unspecified Qualified Code(s): I05.0 - Rheumatic mitral stenosis (4) Chest pain Current Visit: Yes Status: Acute Assessment and plan: Reports burning chest pain prior to admission to [facility] which was not relieved by Tums He describes it as "heartburn" and that he can feel the acid as it comes and goes EKG was NSR, initial troponin 0.01. GI cocktail in ED relieved pain Started on PPI Qualifiers: Chest pain type: precordial chest pain Qualified Code(s): R07.2 - Precordial pain (5) Leg edema, right Current Visit: Yes Status: Acute Assessment and plan: On exam today, there was 2+ swelling in the RLE, LLE swelling had resolved. Venous doppler ordered (6) Leg edema, left Current Visit: Yes Status: Acute Assessment and plan: Pts left leg reportedly always swells more than right due to history of COTY States leg has felt heavier and "like weight" over last week Cap refill normal LLE doppler completed and negative for DVT (7) DVT prophylaxis Current Visit: Yes Status: Acute Assessment and plan: Compression stockings in place Will rule out DVT in RLE and start mechanical prophylaxis after Pt with thrombocytopenia, PLT of 79 today (106 yesterday), so pharmacologic prophylaxis not warranted at this point. - Subjective Interval history: Pt states he is feeling better than yesterday. He continues to have cough and shortness of breath with clear/white sputum production. He reports that the swelling in his left leg is better. He does have swelling in his right leg on examination. - Constitutional Vitals: Temp Pulse Resp BP Pulse Ox 97.3 F L 78 18 130/76 95 06/03/16 11:14 06/03/16 11:14 06/03/16 11:14 06/03/16 13:00 06/03/16 11:14 General appearance: Present: cachectic, A&O X 3, pleasant, no acute distress - Head Head exam: Present: atraumatic, normocephalic - Eye Eye exam: Present: conjuntiva pink, sclera anicteric - ENT ENT exam: Present: mucous membranes moist - Neck Neck exam general surgery: Present: supple, trachea midline - Respiratory Respiratory exam: Present: wheezes - Cardiovascular Cardiovascular exam: Present: RRR, +S1, +S2 Additional comments: Murmur noted - GI/Abdominal GI/Abdominal exam: Present: normal bowel sounds, soft. Absent: tenderness - Extremities Exam Extremities exam: Present: pedal edema (2+ edema in RLE), warm, radial pulses palpable and symetrical. Absent: cyanotic - Neurological Exam Neurological exam: Present: alert, CN II-XII intact, oriented X3, no focal deficits - Skin Skin exam: Present: dry, intact Internal Medicine: Result - Labs CBC & Chem 7: 06/03/16 00:54 06/03/16 00:54 Labs: Short CBC 06/03/16 Range/Units 00:54 WBC 8.0 (4.3-11.1) K/mcL Hgb 11.0 L D (12.9-16.9) g/dL Hct 31.8 L (37.5-50.1) % Plt Count 79 L (140-400) K/mcL Neutrophils # 3.9 (1.6-8.9) K/mcL BMP 06/03/16 00:54 Sodium 135 L Potassium 3.8 Chloride 106 Carbon Dioxide 25 BUN 18 Creatinine 0.97 Glucose 92 Calcium 7.6 L Cardiac Enzymes 06/02/16 06/03/16 Range/Units 18:49 00:54 Troponin I 0.01 0.01 (0-0.03) ng/mL Urine 06/02/16 Range/Units 20:10 Urine Color Yellow (Yellow) Urine Clarity Clear (Clear) Urine pH 7.5 (5.0-8.0) pH Units Ur Specific [place] 1.008 L (1.010-1.025) Urine Protein Negative (Neg-Trace) mg/dL Urine Glucose (UA) Normal (Normal) mg/dL - ABG Interpretation ABG results: PT/INR, D-dimer PT 15.6 Seconds (9.4-12.1) H 06/03/16 00:54 - Impressions Impressions Chest X-Ray 06/03/16 08:00 IMPRESSION: Evidence of mild residual congestive failure with asymmetric basilar airspace disease greater left lower lobe. Superimposed pneumonia considered. D/ / Mack Goldberg MD / Mack Goldberg MD Interpreting Provider: Mack Goldberg MD - VTE Documentation of Mechanical Device: Graduated compression elastic hosiery Consult Discharge Plan - Plan Referrals: Racquel Sharp MD [Primary Care Provider] - <Yayo Sanchez - Last Filed: 06/03/16 18:24> Date of Encounter: 06/03/16 - Constitutional Vitals: Temp Pulse Resp BP Pulse Ox 97.4 F L 60 17 110/72 94 L 06/03/16 15:35 06/03/16 15:35 06/03/16 15:35 06/03/16 15:35 06/03/16 15:35 Internal Medicine: Result - Labs CBC & Chem 7: 06/03/16 00:54 06/03/16 00:54 Labs: Short CBC 06/03/16 Range/Units 00:54 WBC 8.0 (4.3-11.1) K/mcL Hgb 11.0 L D (12.9-16.9) g/dL Hct 31.8 L (37.5-50.1) % Plt Count 79 L (140-400) K/mcL Neutrophils # 3.9 (1.6-8.9) K/mcL BMP 06/03/16 00:54 Sodium 135 L Potassium 3.8 Chloride 106 Carbon Dioxide 25 BUN 18 Creatinine 0.97 Glucose 92 Calcium 7.6 L Cardiac Enzymes 06/02/16 06/03/16 Range/Units 18:49 00:54 Troponin I 0.01 0.01 (0-0.03) ng/mL Urine 06/02/16 Range/Units 20:10 Urine Color Yellow (Yellow) Urine Clarity Clear (Clear) Urine pH 7.5 (5.0-8.0) pH Units Ur Specific [place] 1.008 L (1.010-1.025) Urine Protein Negative (Neg-Trace) mg/dL Urine Glucose (UA) Normal (Normal) mg/dL - ABG Interpretation ABG results: PT/INR, D-dimer PT 15.6 Seconds (9.4-12.1) H 06/03/16 00:54 - Impressions Impressions Chest X-Ray 06/03/16 08:00 IMPRESSION: Evidence of mild residual congestive failure with asymmetric basilar airspace disease greater left lower lobe. Superimposed pneumonia considered. D/ / Mack Goldberg MD / Mack Goldberg MD Interpreting Provider: Mack Goldberg MD - Attending Attestation The patient was seen and examined with the resident during rounds. I agree with the physical examination findings, assessment and plan as documented by the resident, Dr. Venegas. Continue with current management.
[2016-06-03] MEDS: Furosemide 20 MG/2 ML VIAL IVP SCH (16:56)
[2016-06-03] MEDS: Levofloxacin 500 MG/100 ML 500 MG/100 ML BAG IVPB SCH (16:57)
[2016-06-04] MEDS: Ipratropium/Albuterol Neb 3 ML IH SCH ×4 (03:14→20:46)
[2016-06-04 05:01] LABS: Basophils % 0.3 %; Eosinophils % 35.7 %; Immature Granulocytes % 0.1 % (0-4); Mean Corpuscular HGB Conc 34.8 g/dL (31.6-35.5); Red Blood Count 3.12 M/mcL (4.19-5.50); Segmented Neutrophils % 34.3 %
[2016-06-04 05:03] LABS: Eosinophils # 2.5 K/mcL (0.0-0.6); Hematocrit 29.3 % (37.5-50.1); Hemoglobin 10.2 g/dL (12.9-16.9); Immature Platelets 2.9 % (1.1-6.1); Mean Corpuscular Hemoglobin 32.7 pg (28.0-33.3); Mean Corpuscular Volume 93.9 fL (83.0-100.0); Mean Platelet Volume 10.4 fL (9.4-12.4); Monocytes # 0.3 K/mcL (0.0-1.3); Monocytes % 4.6 %; Neutrophils # 2.4 K/mcL (1.6-8.9)
[2016-06-04 05:04] LABS: Lymphocytes # 1.8 K/mcL (0.6-4.6); Platelet Count 88 K/mcL (140-400)
[2016-06-04 05:06] LABS: BUN/Creatinine Ratio 15 (6-26); Blood Urea Nitrogen 16 mg/dL (8-26); Calcium 7.6 mg/dL (8.6-10.8); Carbon Dioxide 26 mEq/L (19-29); Chloride 106 mEq/L (98-109); Glucose 89 mg/dL (70-99); Osmolality,Calculated 281 (280-300); Potassium 3.6 mEq/L (3.5-4.5); Sodium 135 mEq/L (136-145); eGFR For African Americans > 60 (> 60); eGFR For Non-African Americans > 60 (> 60)
[2016-06-04 05:44] LABS: Platelet Estimate Decreased (Normal)
[2016-06-04] MEDS: *HR* Heparin 5,000 UNIT/ML VIAL SQ SCH ×2 (06:14→17:57)
[2016-06-04] MEDS: (Formoterol Fumarate [Perforomist] 20 MCG) IH SCH ×3 (06:20→20:41)
[2016-06-04] MEDS: Loratadine 10 MG TABLET PO SCH (07:58)
[2016-06-04] MEDS: Finasteride 5 MG TABLET PO SCH (07:58)
[2016-06-04] MEDS: Aspirin Enteric Coated 81 MG Tablet PO SCH (07:58)
[2016-06-04] MEDS: Furosemide 20 MG/2 ML VIAL IVP SCH (07:59)
[2016-06-04] MEDS: Budesonide Neb 0.5 MG/2 ML IH SCH (11:00)
[2016-06-04] MEDS ORDERED: 0.9 % Sodium Chloride 1,000 ML IVC SCH (15:45)
[2016-06-04 16:09] LABS: BUN/Creatinine Ratio 13 (6-26); Blood Urea Nitrogen 13 mg/dL (8-26); Calcium 7.7 mg/dL (8.6-10.8); Carbon Dioxide 23 mEq/L (19-29); Chloride 106 mEq/L (98-109); Glucose 100 mg/dL (70-99); Osmolality,Calculated 280 (280-300); Potassium 3.6 mEq/L (3.5-4.5); Sodium 135 mEq/L (136-145); eGFR For African Americans > 60 (> 60); eGFR For Non-African Americans > 60 (> 60)
--- NOTE | 2016-06-04 16:34 | Internal Med Progress Note ---
Date of Encounter: 06/04/16 Time of Encounter: 16:31 - Assessment and plan (1) Altered mental status Current Visit: Yes Status: Acute Assessment and plan: AMS this afernoon, no hypoglycemia, no focal signs. Might be side effect of medications. Will stop loratadine. Will get a Head CT, labs and place him npo and start iv fluids. D/W patient's daugher at bedside. nursing staff notified. Qualifiers: Altered mental status type: delirium Qualified Code(s): R41.0 - Disorientation, unspecified (2) Acute exacerbation of chronic obstructive airways disease Current Visit: Yes Status: Acute Assessment and plan: Presented with cough and increasing shortness of breath, previously treatment outpatient for pneumonia by r&d engineer. CXR demonstrated bibasilar opacities and bilateral effusions. improving. O2 95% on room air Duoneb treatments qid (3) DVT prophylaxis Current Visit: Yes Status: Acute (4) Mitral valve stenosis Current Visit: Yes Status: Acute Assessment and plan: Pt with known severe Mitral stenosis Cardiology consulted Per Cardiology: Echo at [facility] 08/2014, then [facility] 11/[address] Gregory Yuen at [facility] at that time, however, per daughter, the surgery was scheduled without their knowledge, so they did not show up and they have not followed up since Severe MS likely contributing to pts symptom of dyspnea Recommended re-establish with [facility] and Dr. 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 Pt was diagnosed with pneumonia 3 weeks ago and treated with steroids and Augmentin as an outpatient 2 view CXR demonstrated evidence of mild residual congestive failure with asymmetric basilar airspace disease greater in LLL, with superimposed pneumonia considered ED gave Levaquin and Zosyn, Levaquin continued. O2 today was 95% on room air Qualifiers: Pneumonia type: due to unspecified organism Laterality: bilateral Lung location: unspecified part of lung Qualified Code(s): J18.9 - Pneumonia, unspecified organism - Time Spent With Patient 25 - 35 minutes - Subjective Interval history: patient seen and examined this morning, he was alert, oriented, not in distress , making jokes. However this afternoon he became weak , was confused and sleepy. - Constitutional Vitals: Temp Pulse Resp BP Pulse Ox 97.5 F L 58 18 125/68 96 06/04/16 11:53 06/04/16 14:41 06/04/16 14:41 06/04/16 14:41 06/04/16 14:41 General appearance: Present: cachectic, A&O X 2, pleasant, no acute distress - Head Head exam: Present: atraumatic, normocephalic - Eye Eye exam: Present: PERRL, conjuntiva pink, sclera anicteric Pupils: Present: PERRL - Neck Neck exam general surgery: Present: supple, trachea midline. Absent: lymphadenopathy - Respiratory Respiratory exam: Present: CTAB. Absent: accessory muscle use, rales, rhonchi, wheezes - Cardiovascular Cardiovascular exam: Present: RRR, +S1, +S2. Absent: diastolic murmur, gallop, rubs, systolic murmur - GI/Abdominal GI/Abdominal exam: Present: normal bowel sounds, soft, no peritoneal signs. Absent: distended, tenderness - Extremities Exam Extremities exam: Present: warm, radial pulses palpable and symetrical. Absent : calf tenderness, cyanotic, pedal edema - Neurological Exam Neurological exam: Present: CN II-XII intact, oriented X3, no focal deficits. Absent: pronater drift, facial droop, speech deficit - Skin Skin exam: Present: dry, intact Internal Medicine: Result - Labs CBC & Chem 7: 06/04/16 04:02 06/04/16 15:50 Labs: Short CBC 06/04/16 Range/Units 04:02 WBC 7.0 (4.3-11.1) K/mcL Hgb 10.2 L (12.9-16.9) g/dL Hct 29.3 L (37.5-50.1) % Plt Count 88 L (140-400) K/mcL Neutrophils # 2.4 (1.6-8.9) K/mcL BMP 06/04/16 06/04/16 04:02 15:50 Sodium 135 L 135 L Potassium 3.6 3.6 Chloride 106 106 Carbon Dioxide 26 23 BUN 16 13 Creatinine 1.07 1.02 Glucose 89 100 H Calcium 7.6 L 7.7 L - ABG Interpretation ABG results: PT/INR, D-dimer PT 15.6 Seconds (9.4-12.1) H 06/03/16 00:54 - VTE Documentation of Mechanical Device: Graduated compression elastic hosiery Consult Discharge Plan - Plan Referrals: Racquel Sharp MD [Primary Care Provider] -
[2016-06-04] MEDS: Levofloxacin 500 MG/100 ML 500 MG/100 ML BAG IVPB SCH (17:37)
[2016-06-05] MEDS: Ipratropium/Albuterol Neb 3 ML IH SCH ×2 (04:59→10:29)
[2016-06-05] MEDS: *HR* Heparin 5,000 UNIT/ML VIAL SQ SCH (05:45)
[2016-06-05] MEDS: Loratadine 10 MG TABLET PO SCH (07:20)
[2016-06-05] MEDS: Furosemide 20 MG/2 ML VIAL IVP SCH (08:37)
[2016-06-05] MEDS: Aspirin Enteric Coated 81 MG Tablet PO SCH (08:37)
[2016-06-05] MEDS: Finasteride 5 MG TABLET PO SCH (08:37)
[2016-06-05] MEDS: (Formoterol Fumarate [Perforomist] 20 MCG) IH SCH (08:38)
[2016-06-05] MEDS: Budesonide Neb 0.5 MG/2 ML IH SCH (10:29)
[2016-06-05 11:22] VITALS: BP 116/76
--- NOTE | 2016-06-05 12:46 | Discharge Summary ---
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 (5) Pneumonia Priority: Primary Status: Acute Qualifiers: Pneumonia type: due to unspecified organism Laterality: bilateral Lung location: unspecified part of lung Qualified Code(s): J18.9 - Pneumonia, unspecified organism - Discharge Medications Prescriptions: Furosemide [Lasix] 10 mg PO DAILY #7 tablet Levofloxacin [Levaquin] 500 mg PO DAILY #3 tablet Home Medications: Albuterol Sulfate [Proair Hfa] 2 puff IH Q4H PRN 06/02/16 [History] Aspirin [Lo-Dose Aspirin EC] 81 mg PO DAILY 06/02/16 [History] Budesonide Neb [Pulmicort Neb] 0.5 mg IH DAILY 06/02/16 [History] Cranberry Conc/C/Bacill Coag [Azo Cranberry Tablet] 1 tab PO DAILY 06/02/16 [ History] Docusate [Colace] 100 mg PO DAILY 06/02/16 [History] Finasteride [Proscar] 5 mg PO DAILY 06/02/16 [History] Formoterol Fumarate [Perforomist] 20 mcg IH BID 06/02/16 [History] Ibuprofen [Motrin] 400 mg PO TID PRN 06/02/16 [History] Levothyroxine [Synthroid] 50 mcg PO DAILY 06/02/16 [History] Montelukast [Singulair] 10 mg PO DAILY 06/02/16 [History] Simvastatin [Zocor] 20 mg PO DAILY 06/02/16 [History] Tamsulosin [Flomax] 0.4 mg PO DAILY 06/02/16 [History] Tramadol HCl [Ultram] 50 mg PO QID PRN 06/02/16 [History] Furosemide [Lasix] 10 mg PO DAILY #7 tablet 06/05/16 [Rx] Levofloxacin [Levaquin] 500 mg PO DAILY #3 tablet 06/05/16 [Rx] Allergies/Adverse Reactions: Allergies No Known Allergies Allergy (Verified 06/02/16 12:01) Procedures/tests Complete & Pending: Procedures Performed prior 72 hours Category Date Time Status CT head/brain wo con [CT] Stat Cat Scan 06/04/16 15:09 Completed EV venous imaging LE LT Routine Y 06/02/16 18:20 Completed Venous Doppler [EV venous imaging LE RT] Routine Y 06/03/16 11:49 Completed Date of admission: 06/02/16 17:54 Primary care physician: Racquel Sharp MD Consults: 06/02/16 19:12 Consult to Occupational Therapy [CONS] Routine Comment: Evaluate, develop and implement POC Consult to Physical Therapy [CONS] Routine Comment: Evaluate, develop and implement POC Consult to Cruise Counselor [CONS] Routine Reason for SW Consult: 80yo male, debilitated, assess need for placement on discharge 06/03/16 11:45 Consult to Cardiology [CONS] Routine Comment: Consulting Provider: Cardiology Jeni Reason for Consult: Mitral valve stenosis, pulmonary edema Call Completed: Yes Discharging clinician: Yayo Sanchez Anticipated date of discharge: 06/05/16 - Patient Status Disposition: Home Health Service Condition: Good Functional capacity at discharge: uses cane/walker Overall status at discharge: patient is back to baseline - Discharge Instructions Follow Up With: Racquel Sharp MD [Primary Care Provider] - - Diet and Activity Activity: as per physical therapy Diet: advance to your usual diet Interval History: Mr. Keenan is a 80 year old male with history of COPD, TIA, mitral valve stenosis, hypertension, hyperlipidemia who was brought to the emergency department by his daughter for increasing shortness of breath. Patient had difficulty walking today due to shortness of breath. 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 His daughter reports he seemed to be doing better for a few days and then started to decline. He also reports heartburn with onset last evening unrelieved by Tums he describes it as a burning chest pain and he feels the acid. Daughter states that he has never had acid reflux in the past like this, just heartburn from time to time. He also reports his left leg has been more swollen and feels like weight over the last week. History of a left hip replacement and his left leg does tend to swell more than his right historically. He reports he has been coughing on and off with clear to white sputum. He denies any fever, headache, palpitations, chills, nausea, vomiting, or diarrhea. Evaluation in the emergency department showed a chest x-ray with bibasilar opacities and bilateral effusions interpreted as pulmonary edema with possible superimposed infection. Troponin was negative at 0.01, BNP normal at 92. Platelets were low at 106. On exam the patient appears cachexic, comfortable, is alert and oriented 3, satting 95% on room air. His lungs have mild expiratory wheeze right worse than left. Heart with regular rate and rhythm. Right ankle appears deformed with swelling. Patient's daughter reports that is chronic. Left leg more swollen than the right, with +2 edema. The patient's case was discussed with Dr. Sanchez, and he agreed with the assessment and plan set forth. Hospital course: Mr. Keenan is a 80 year old male admitted due to pneumonia, with underlying COPD. Patient is also known to have severe mitral stenosis. Cardiology was consulted, the patient's mitral stenosis likely has contributed to the patient' s symptoms of dyspnea. Will follow-up with cardiology in 3 weeks. Patient will need to have surgery at [facility]. For his pneumonia, he was treated with Levaquin, he has been afebrile, no leukocytosis. The day before discharge, the patient developed an altered mental status, which improved after a few hours, likely due to medications interactions. A CT scan of the head was obtained, no acute changes, was repeated the labs, without significant changes as well. The plan of care was discussed in detail with the patient and his daughter, they both expressed understanding. At this point, we will discharge the patient home, will continue with by mouth Levaquin to complete 3 more days of antibiotic course. Additionally, Will give a prescription for diuretic for a couple of days. Patient to follow-up with his primary care physician. Patient needs home health services, we will make the referral accordingly. - Time Spent with Patient Total time spent providing and/or coordinating discharge services: Greater than 30 minutes - Constitutional Vitals: Temp Pulse Resp BP Pulse Ox 97.9 F 67 17 116/76 97 06/05/16 11:21 06/05/16 11:21 06/05/16 11:21 06/05/16 11:21 06/05/16 11:21 General appearance: Present: cachectic, A&O X 2, pleasant, no acute distress - Head Head exam: Present: atraumatic, normocephalic - Eye Eye exam: Present: PERRL, conjuntiva pink, sclera anicteric Pupils: Present: PERRL - Neck Neck exam general surgery: Present: supple, trachea midline. Absent: lymphadenopathy - Respiratory Respiratory exam: Present: CTAB. Absent: accessory muscle use, rales, rhonchi, wheezes - Cardiovascular Cardiovascular exam: Present: RRR, +S1, +S2. Absent: diastolic murmur, gallop, rubs, systolic murmur - GI/Abdominal GI/Abdominal exam: Present: normal bowel sounds, soft, no peritoneal signs. Absent: distended, tenderness - Extremities Exam Extremities exam: Present: warm, radial pulses palpable and symetrical. Absent : calf tenderness, cyanotic, pedal edema - Neurological Exam Neurological exam: Present: CN II-XII intact, oriented X3, no focal deficits. Absent: pronater drift, facial droop, speech deficit - Skin Skin exam: Present: dry, intact - VTE Documentation of Mechanical Device: Graduated compression elastic hosiery
--- NOTE | 2016-06-05 12:53 | Physician Discharge Referral ---
Home Health/Hosp Referral Info Transfer to: Home Health Provider in Charge Post Discharge: PCP - Diagnosis (1) Altered mental status Priority: Secondary Status: Acute (2) Acute exacerbation of chronic obstructive airways disease Priority: Secondary Status: Acute (3) DVT prophylaxis Priority: Secondary Status: Acute (4) Mitral valve stenosis Priority: Secondary Status: Acute (5) Pneumonia Priority: Primary Status: Acute - Respiratory Orders Smoking Cessation: Smoking cessation has been advised. For more information, call the [place] Tobacco Quit Line at 7-864-UMQL-NOW. - Diet/Nutrition Diet/Nutrition Orders: Cardiac - Activity Activity Orders: Up ad jose - Services Needed Following services are medically necessary services: Nursing, Home Health Aide - Transfer Medications Prescriptions: Furosemide [Lasix] 10 mg PO DAILY #7 tablet Levofloxacin [Levaquin] 500 mg PO DAILY #3 tablet Home Medications: Albuterol Sulfate [Proair Hfa] 2 puff IH Q4H PRN 06/02/16 [History] Aspirin [Lo-Dose Aspirin EC] 81 mg PO DAILY 06/02/16 [History] Budesonide Neb [Pulmicort Neb] 0.5 mg IH DAILY 06/02/16 [History] Cranberry Conc/C/Bacill Coag [Azo Cranberry Tablet] 1 tab PO DAILY 06/02/16 [ History] Docusate [Colace] 100 mg PO DAILY 06/02/16 [History] Finasteride [Proscar] 5 mg PO DAILY 06/02/16 [History] Formoterol Fumarate [Perforomist] 20 mcg IH BID 06/02/16 [History] Ibuprofen [Motrin] 400 mg PO TID PRN 06/02/16 [History] Levothyroxine [Synthroid] 50 mcg PO DAILY 06/02/16 [History] Montelukast [Singulair] 10 mg PO DAILY 06/02/16 [History] Simvastatin [Zocor] 20 mg PO DAILY 06/02/16 [History] Tamsulosin [Flomax] 0.4 mg PO DAILY 06/02/16 [History] Tramadol HCl [Ultram] 50 mg PO QID PRN 06/02/16 [History] Furosemide [Lasix] 10 mg PO DAILY #7 tablet 06/05/16 [Rx] Levofloxacin [Levaquin] 500 mg PO DAILY #3 tablet 06/05/16 [Rx] Allergies/Adverse Reactions: Allergies No Known Allergies Allergy (Verified 06/02/16 12:01) Certification: Further, I certify that my clinical findings support that this patient is homebound (i.e. absences from home require considerable and taxing effort and are for medical reasons or evangelical services or infrequently or short duration when for other reasons) because: Homebound Reason: Post-surgery restriction and or conditions limit ability to leave home, Leaving home requires considerable and taxing effort due to condition, Severity of cardiac or pulmonary status limits activity tolerance Attestation: My signature below is to certify that this patient is under my care and that I, or nurse practitioner, or a physician's paraprofessional education assistant working with me, has a face-to -face encounter with this patient.
== END 2016-06-05 13:45 | disposition home health service (06) | DRG 190 ==
LOC: EMEROO 11:39 → 3BNU 11:39 → SUATTDRO 17:54 → 3BNU 06-04 15:21
PROVIDERS: ADMIT Internal Medicine; ATTEND Internal Medicine

== ENCOUNTER 2017-02-20 14:26 | Inpatient (IN) ==
--- NOTE | 2017-02-20 14:52 | Emergency Department Note ---
Disposition Clinical Impression: Acute electrocardiogram changes, Acute exacerbation of CHF (congestive heart failure), Debility, Peripheral edema Chest pain Qualifiers: Chest pain type: unspecified Qualified Code(s): R07.9 - Chest pain, unspecified Disposition: Admitted As Inpatient Condition: Fair Time of Disposition: 16:08 General Adult HPI - General Chief complaint: ED Recheck/Abnormal Lab/Rx Stated complaint: Edema/Abnormal labs Time Seen by Provider: 02/20/17 14:31 Source: EMS Limitations: physical limitation, age Nursing Notes Reviewed: Yes Vital Signs Reviewed: Yes - History of Present Illness HPI Narrative: 81-year-old male complaining of edema and chest pain, history of diabetes, CVA, alcohol cirrhosis, CAD status post catheter in 2015 with single-vessel's CAD no stents patient presents complaining of bilateral lower summery swelling. Per the nursing facility had +3 edema in his lower extremity's. 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 Patient is a limited historian, mostly history is obtained from nursing review and talking with EMS, patient states that he has intermittent chest pain 4/ 10 and aching. Patient does notice a swelling and he is bed bound at baseline. Does not ambulate. 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: chest Pain Scale: 2 Consistency: intermittent Improves with: nothing Worsens with: nothing Associated symptoms: Reports: confusion, chest pain - Related Data Home Medications Medication Instructions Recorded Confirmed Albuterol Sulfate [Proair Hfa] 2 puff IH Q6H PRN 06/02/16 02/20/17 Aspirin [Lo-Dose Aspirin EC] 81 mg PO DAILY 06/02/16 02/20/17 Budesonide Neb [Pulmicort Neb] 0.5 mg IH QAM 06/02/16 02/20/17 Docusate [Colace] 100 mg PO DAILY PRN 06/02/16 02/20/17 Finasteride [Proscar] 5 mg PO DAILY 06/02/16 02/20/17 Formoterol Fumarate [Perforomist] 20 mcg IH BID 06/02/16 02/20/17 Levothyroxine [Synthroid] 50 mcg PO QAM 06/02/16 02/20/17 Montelukast [Singulair] 10 mg PO HS 06/02/16 02/20/17 Simvastatin [Zocor] 20 mg PO HS 06/02/16 02/20/17 Tamsulosin [Flomax] 0.4 mg PO BID 06/02/16 02/20/17 Bisacodyl [Dulcolax] 10 mg RC DAILY PRN 02/20/17 02/20/17 Cranberry Fruit Extract [Cranberry] 200 mg PO DAILY 02/20/17 02/20/17 Folic Acid 1 mg PO DAILY 02/20/17 02/20/17 Furosemide [Lasix] 40 mg PO BID 02/20/17 02/20/17 Insulin LISPRO [HumaLOG] 2 - 10 units SQ AD 02/20/17 02/20/17 Loratadine [Claritin] 10 mg PO DAILY 02/20/17 02/20/17 Mirtazapine [Remeron] 45 mg PO HS 02/20/17 02/20/17 Nebivolol HCl [Bystolic] 2.5 mg PO QPM 02/20/17 02/20/17 Nitroglycerin [Nitrostat] 0.4 mg SL Q5M PRN 02/20/17 02/20/17 Ondansetron [Zofran] 8 mg PO Q8H PRN 02/20/17 02/20/17 Pantoprazole Sodium 40 mg PO BID 02/20/17 02/20/17 Polyethylene Glycol 3350 [MiraLAX] 17 gm PO BID 02/20/17 02/20/17 Potassium Chloride [Klor-Con 10] 20 meq PO QAM 02/20/17 02/20/17 Sennosides [Senna] 8.6 mg PO QAM 02/20/17 02/20/17 Allergies Allergy/AdvReac Type Severity Reaction Status Date / Time No Known Allergies Allergy Verified 06/02/16 12:01 All systems ED: reviewed and negative except as stated. (Review of systems difficult to obtain secondary to history, patient does endorse chest pain edema denies other complaints) Review of Systems: As Per HPI Constitutional: Denies: fever Eyes: Denies: eye pain ENT ED: Denies: ear pain Cardiovascular: Reports: as per HPI, chest pain, edema Respiratory: Denies: cough, dyspnea Gastrointestinal: Denies: abdominal pain Genitourinary: Denies: urgency Musculoskeletal: Denies: back pain Integumentary: Denies: rash Neurological: Denies: headache Past Medical History - Past Medical History Attestation: Yes The following information was validated with the patient. Medical history: Reports: asthma, COPD, coronary artery disease, CVA, hyperlipidemia, hypertension Surgical history: Reports: hip replacement (left) Psychiatric history: Reports: no psych history - Social History Smoking Status: Never smoker Smokeless Tobacco Status: No Alcohol use: Reports: none Drug use: Reports: none Physical Exam Constitutional: Cachectic elderly male appears frail and debilitated. Eyes: PERRLA, sclera anicteric ENT & Mouth: Dry mucous membranes Neck: normal inspection, neck is supple pectus carinatum, Resp: Diffuse bibasilar rales. CV: RRR, no m/g/r, was 3 pitting edema bilaterally GI: normal inspection, soft, abdominal distention, mild tenderness to palpation diffusely. no guarding or rigidity Neuro: A&O2, CNII-XII grossly intact, HATHAWAY Skin: on limited exam, foreskin turgor - General Limitations: no limitations General appearance: alert, in no apparent distress Course Course Narrative: 81yom with cirrhosis apperas clinically dehydrated and edematous, +3 pitting edema, bibasilar rales will diurese and do full septic workup, avoid fluid bolus given normotensive. 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 Admit to Hospitalist Dr Brown for CP, chf exacerbation possible HCAP, anemia, weakness, EKG changes. 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 Narrative Medical decision making narrative: 81 yom with weakness debility, frail and cachectic, volume overloaded, started on empiric abx for Pneumonia bibasilar opacities on XRay, suspect chf exacerbation, EKG changes with no elevated troponin, no indication for cath at this time per interventionalist, admitted to hospitalist in stable condition. - Medical Records Medical records reviewed: Yes I reviewed the patient's medical records. - Lab Data Lab results reviewed: Yes I reviewed the patient's lab results. Result diagrams: 02/20/17 15:00 02/20/17 15:00 Lab Results 02/20/17 02/20/17 02/20/17 Range/Units 14:55 15:00 15:00 WBC 6.7 (4.3-11.1) K/mcL RBC 2.88 L (4.19-5.50) M/mcL Hgb 9.2 L (12.9-16.9) g/dL Hct 27.7 L (37.5-50.1) % MCV 96.2 (83.0-100.0) fL MCH 31.9 (28.0-33.3) pg MCHC 33.2 (31.6-35.5) g/dL RDW 14.3 (11.5-14.5) % Plt Count 132 L (140-400) K/mcL MPV 8.8 L (9.4-12.4) fL Immature Gran % 0.7 (0-4) % Seg Neutrophils % 72.1 % Lymphocytes % 19.9 % Monocytes % 2.7 % Eosinophils % 4.3 % Basophils % 0.3 % Neutrophils # 4.8 (1.6-8.9) K/mcL Lymphocytes # 1.3 (0.6-4.6) K/mcL Monocytes # 0.2 (0.0-1.3) K/mcL Eosinophils # 0.3 (0.0-0.6) K/mcL Basophils # 0.0 (0.0-0.2) K/mcL PT 13.2 H (9.4-12.1) Seconds INR 1.2 APTT 33.5 (26.0-36.0) Seconds Sodium (136-145) mEq/L Potassium (3.5-4.5) mEq/L Chloride (98-109) mEq/L Carbon Dioxide (19-29) mEq/L BUN (8-26) mg/dL Creatinine (0.72-1.25) mg/dL Est GFR ( Amer) (> 60) Est GFR (Non-Af Amer) (> 60) BUN/Creatinine Ratio (6-26) Glucose (70-99) mg/dL Calculated Osmolality (280-300) Lactic Acid (0.5-2.2) mmol/L Calcium (8.6-10.8) mg/dL Phosphorus (2.3-4.7) mg/dL Magnesium (1.6-2.6) mg/dL Total Bilirubin (0.2-1.2) mg/dL Direct Bilirubin (0.0-0.5) mg/dL Indirect Bilirubin (0.0-1.2) mg/dL AST (5-34) Units/L ALT (0-55) Units/L Alkaline Phosphatase (38-126) Units/L Ammonia (18-72) mcmol/L Troponin I (0-0.03) ng/mL B-Natriuretic Peptide (0-100) pg/mL Serum Total Protein (6.0-8.3) g/dL Albumin (3.5-5.0) g/dL Globulin (2.4-3.5) g/dL Albumin/Globulin Ratio (1.1-2.2) Ur Specimen Adequacy See below A Urine Color Red A (Yellow) Urine Clarity Hazy (Clear) Urine pH 7.0 (5.0-8.0) pH Units Ur Specific [place] 1.012 (1.010-1.025) Urine Protein 30 H (Neg-Trace) mg/dL Urine Glucose (UA) Normal (Normal) mg/dL Urine Ketones Negative (Negative) mg/dL Urine Blood Large H (Negative) Urine Nitrite Negative (Negative) Urine Bilirubin Negative (Negative) Urine Urobilinogen Normal (Normal) mg/dL Ur Leukocyte Esterase Large H (Negative) Ur Culture Indicated? YES A (NO) 09/22/17 09/22/17 09/22/17 Range/Units 15:00 15:00 15:00 WBC (4.3-11.1) K/mcL RBC (4.19-5.50) M/mcL Hgb (12.9-16.9) g/dL Hct (37.5-50.1) % MCV (83.0-100.0) fL MCH (28.0-33.3) pg MCHC (31.6-35.5) g/dL RDW (11.5-14.5) % Plt Count (140-400) K/mcL MPV (9.4-12.4) fL Immature Gran % (0-4) % Seg Neutrophils % % Lymphocytes % % Monocytes % % Eosinophils % % Basophils % % Neutrophils # (1.6-8.9) K/mcL Lymphocytes # (0.6-4.6) K/mcL Monocytes # (0.0-1.3) K/mcL Eosinophils # (0.0-0.6) K/mcL Basophils # (0.0-0.2) K/mcL PT (9.4-12.1) Seconds INR APTT (26.0-36.0) Seconds Sodium 131 L (136-145) mEq/L Potassium 4.0 (3.5-4.5) mEq/L Chloride 100 (98-109) mEq/L Carbon Dioxide 25 (19-29) mEq/L BUN 22 (8-26) mg/dL Creatinine 0.91 (0.72-1.25) mg/dL Est GFR ( Amer) > 60 (> 60) Est GFR (Non-Af Amer) > 60 (> 60) BUN/Creatinine Ratio 24 (6-26) Glucose 99 (70-99) mg/dL Calculated Osmolality 275 L (280-300) Lactic Acid 1.8 (0.5-2.2) mmol/L Calcium 7.7 L (8.6-10.8) mg/dL Phosphorus 3.0 (2.3-4.7) mg/dL Magnesium 1.6 (1.6-2.6) mg/dL Total Bilirubin 0.6 (0.2-1.2) mg/dL Direct Bilirubin 0.4 (0.0-0.5) mg/dL Indirect Bilirubin 0.2 (0.0-1.2) mg/dL AST 18 (5-34) Units/L ALT 9 (0-55) Units/L Alkaline Phosphatase 62 (38-126) Units/L Ammonia (18-72) mcmol/L Troponin I 0.03 (0-0.03) ng/mL B-Natriuretic Peptide (0-100) pg/mL Serum Total Protein 5.3 L (6.0-8.3) g/dL Albumin 1.8 L (3.5-5.0) g/dL Globulin 3.5 (2.4-3.5) g/dL Albumin/Globulin Ratio 0.5 L (1.1-2.2) Ur Specimen Adequacy Urine Color (Yellow) Urine Clarity (Clear) Urine pH (5.0-8.0) pH Units Ur Specific Greene (1.010-1.025) Urine Protein (Neg-Trace) mg/dL Urine Glucose (UA) (Normal) mg/dL Urine Ketones (Negative) mg/dL Urine Blood (Negative) Urine Nitrite (Negative) Urine Bilirubin (Negative) Urine Urobilinogen (Normal) mg/dL Ur Leukocyte Esterase (Negative) Ur Culture Indicated? (NO) 02/20/17 02/20/17 Range/Units 15:00 15:00 WBC (4.3-11.1) K/mcL RBC (4.19-5.50) M/mcL Hgb (12.9-16.9) g/dL Hct (37.5-50.1) % MCV (83.0-100.0) fL MCH (28.0-33.3) pg MCHC (31.6-35.5) g/dL RDW (11.5-14.5) % Plt Count (140-400) K/mcL MPV (9.4-12.4) fL Immature Gran % (0-4) % Seg Neutrophils % % Lymphocytes % % Monocytes % % Eosinophils % % Basophils % % Neutrophils # (1.6-8.9) K/mcL Lymphocytes # (0.6-4.6) K/mcL Monocytes # (0.0-1.3) K/mcL Eosinophils # (0.0-0.6) K/mcL Basophils # (0.0-0.2) K/mcL PT (9.4-12.1) Seconds INR APTT (26.0-36.0) Seconds Sodium (136-145) mEq/L Potassium (3.5-4.5) mEq/L Chloride (98-109) mEq/L Carbon Dioxide (19-29) mEq/L BUN (8-26) mg/dL Creatinine (0.72-1.25) mg/dL Est GFR ( Amer) (> 60) Est GFR (Non-Af Amer) (> 60) BUN/Creatinine Ratio (6-26) Glucose (70-99) mg/dL Calculated Osmolality (280-300) Lactic Acid (0.5-2.2) mmol/L Calcium (8.6-10.8) mg/dL Phosphorus (2.3-4.7) mg/dL Magnesium (1.6-2.6) mg/dL Total Bilirubin (0.2-1.2) mg/dL Direct Bilirubin (0.0-0.5) mg/dL Indirect Bilirubin (0.0-1.2) mg/dL AST (5-34) Units/L ALT (0-55) Units/L Alkaline Phosphatase (38-126) Units/L Ammonia 14 L (18-72) mcmol/L Troponin I (0-0.03) ng/mL B-Natriuretic Peptide 843 H (0-100) pg/mL Serum Total Protein (6.0-8.3) g/dL Albumin (3.5-5.0) g/dL Globulin (2.4-3.5) g/dL Albumin/Globulin Ratio (1.1-2.2) Ur Specimen Adequacy Urine Color (Yellow) Urine Clarity (Clear) Urine pH (5.0-8.0) pH Units Ur Specific Greene (1.010-1.025) Urine Protein (Neg-Trace) mg/dL Urine Glucose (UA) (Normal) mg/dL Urine Ketones (Negative) mg/dL Urine Blood (Negative) Urine Nitrite (Negative) Urine Bilirubin (Negative) Urine Urobilinogen (Normal) mg/dL Ur Leukocyte Esterase (Negative) Ur Culture Indicated? (NO) - Radiology Data Radiology results reviewed: Yes I reviewed the patient's radiology results. Chest X-Ray 02/20/17 14:41 IMPRESSION: Bilateral airspace opacities with small bilateral pleural effusions. Findings either reflect pneumonia versus edema. D/ / Yocasta Rodriguez MD / Yocasta Rodriguez MD Interpreting Provider: Yocasta Rodriguez MD - EKG Data EKG #1 EKG attestation: Yes I reviewed and interpreted this EKG. EKG shows normal: sinus rhythm Rate: normal Rhythm: NSR (73 bpm ID 160 QRS [address] segment depressions in V2 V3 and T- wave inversions.) [place]/QRS: normal T wave inversions noted in: v2, v3 When compared to previous EKG there are: no significant changes Interpretation: nonspecific ST-T wave changes - Core Measures AMI Core Measures Followed: Yes Attestation Statement - Attestation Attestation: I, Gomez Mojica DO, examined this patient [id number] and my medical decision-making was reviewed with Dr. Elvis Azar, Resident Physician. I agree with the documented findings, disposition and treatment plan as described except to the extent set forth below. Please see my progress notes for details. 81-year-old male presents emergency room for evaluation of fluid overload abnormal labs and what appears to be failure to thrive. There is thin frail cachectic appearing male presents with chest pain discomfort generalized malaise difficulty with breathing abdominal distention and swelling in his legs. Physical exam presents with sob and barely able to start converse. Lungs are coarse on presentation chest wall is stable with no crepitus or deformity heart is regular abdomen is distended with tension noted. No acute signs of infection or peritonitis. Moves all 4 extremities but lower extremity is have pitting edema. Patient is very decompensated on presentation. Currently a DNR [facility]. Patient had laboratory workup for infectious etiology started this time including chest x-ray CBC chemistry liver function testing ammonia along with BNP and troponin. EKG reviewed showing some concern for depressions in the medial precordial leads V1 and V2 and V3 with widened T-wave evaluation. Consultation placed to the interventionalists Dr. Dawson. He review the EKG and determined that is not acute pathology this time. Patient will be medically managed in the emergency room and then disposition will most likely be admission once the entirety of the evaluation is completed. Physical exam, medical intervention, medical decision-making process as well as the disposition to be completed in the documentation of the resident physician.
[2017-02-20] MEDS ORDERED: Aspirin 325 MG TABLET PO ONE (14:58)
[2017-02-20 15:12] LABS: Basophils % 0.3 %; Eosinophils # 0.3 K/mcL (0.0-0.6); Eosinophils % 4.3 %; Hematocrit 27.7 % (37.5-50.1); Hemoglobin 9.2 g/dL (12.9-16.9); Immature Granulocytes % 0.7 % (0-4); Lymphocytes # 1.3 K/mcL (0.6-4.6); Lymphocytes % 19.9 %; Mean Corpuscular HGB Conc 33.2 g/dL (31.6-35.5); Mean Corpuscular Hemoglobin 31.9 pg (28.0-33.3); Mean Corpuscular Volume 96.2 fL (83.0-100.0); Mean Platelet Volume 8.8 fL (9.4-12.4); Monocytes # 0.2 K/mcL (0.0-1.3); Monocytes % 2.7 %; Neutrophils # 4.8 K/mcL (1.6-8.9); Platelet Count 132 K/mcL (140-400); Red Blood Count 2.88 M/mcL (4.19-5.50); Red Cell Distribution Width 14.3 % (11.5-14.5); Segmented Neutrophils % 72.1 %
[2017-02-20 15:12] LABS: Bilirubin,Urine Negative (Negative); Blood,Urine Large (Negative); Glucose,Urine (UA) Normal (Normal); Ketones,Urine Negative (Negative); Leukocyte Esterase,Urine Large (Negative); Nitrite,Urine Negative (Negative); Protein,Urine 30 mg/dL (Neg-Trace); Specific Gravity,Urine 1.012 (1.010-1.025); Urobilinogen,Urine Normal (Normal)
[2017-02-20 15:13] LABS: Clarity,Urine Hazy (Clear); Color,Urine Red (Yellow)
[2017-02-20 15:19] LABS: INR 1.2; Prothrombin Time 13.2 Seconds (9.4-12.1)
[2017-02-20 15:23] LABS: Activated Partial Thrombo Time 33.5 Seconds (26.0-36.0)
[2017-02-20 15:27] LABS: Alanine Aminotransferase 9 Units/L (0-55); Albumin/Globulin Ratio 0.5 (1.1-2.2); Alkaline Phosphatase 62 Units/L (38-126); Aspartate Amino Transferase 18 Units/L (5-34); BUN/Creatinine Ratio 24 (6-26); Bilirubin,Direct 0.4 mg/dL (0.0-0.5); Bilirubin,Indirect 0.2 mg/dL (0.0-1.2); Bilirubin,Total 0.6 mg/dL (0.2-1.2); Blood Urea Nitrogen 22 mg/dL (8-26); Calcium 7.7 mg/dL (8.6-10.8); Carbon Dioxide 25 mEq/L (19-29); Chloride 100 mEq/L (98-109); Globulin 3.5 g/dL (2.4-3.5); Glucose 99 mg/dL (70-99); Magnesium 1.6 mg/dL (1.6-2.6); Osmolality,Calculated 275 (280-300); Sodium 131 mEq/L (136-145); Total Protein 5.3 g/dL (6.0-8.3); eGFR For African Americans > 60 (> 60); eGFR For Non-African Americans > 60 (> 60)
[2017-02-20 15:29] LABS: Albumin 1.8 g/dL (3.5-5.0)
[2017-02-20] MEDS ORDERED: Vancomycin 1,000 MG in D5% in Water 250 ML IVPB ONE (15:45)
[2017-02-20] MEDS ORDERED: Piperacillin/Tazobactam 3.375 GM in D5% in Water (Mini-Bag+) 100 ML IVPB ONE (15:45)
[2017-02-20] MEDS ORDERED: Levofloxacin 750 MG/150 ML 750 MG/150 ML BAG IVPB ONE (15:45)
[2017-02-20] MEDS ORDERED: Furosemide 40 MG/4 ML VIAL IVP ONE (15:49)
[2017-02-20] MEDS ORDERED: Dextrose Gel 15 GM PO PRN ×2 (17:23)
[2017-02-20] MEDS ORDERED: *HR* Dextrose 50 % in Water (Syg) 50 ML SYRINGE IVP PRN (17:23)
[2017-02-20] MEDS ORDERED: D5% in Water 1,000 ML IVC PRN (17:23)
[2017-02-20] MEDS ORDERED: Naloxone 0.4 MG/ML INJ IVP PRN (17:23)
--- NOTE | 2017-02-20 17:43 | Internal Med History&Physical ---
<Wilfred Pereira J - Last Filed: 02/20/17 18:32> Date of Encounter: 02/20/17 Time of Encounter: 17:32 Assessment and Plan (1) Adult failure to thrive Current visit: Yes Status: Acute Poor appetite, increased BLE 3+ pitting edema likely d/t 3rd spacing secondary to hypoalbuminaemia. Deconditioning reported patient along ambulatory, severe mitral stenosis, severely limits his activity. Also, does have a history of hypothyroidism check TSH Nutrition consult for supplementation, pre-albumin in the morning PT/OT plan is to improve deconditioned state and return to [facility] health services coordinator consult (2) Physical deconditioning Current visit: Yes Status: Acute Reports decrease in physical capacity, increased dyspnea with exertion, and poor appetite. He reports that is no longer ambulatory and wheelchair dependent. Review of previous cardiac consult reveals a severe mitral stenosis which was supposed to be surgically fixed at [facility] but he did not make it to appointment. Upon exam he appears to be third spacing, finding BLE 3+ pitting edema, additionally CXR reveals a PNA vs Edema picture. He appears to have failure to thrive, hypoalbuminemia, and functional decline. Nutritional consult for diet supplementation PT/OT consult, SS consult, plan is to improve physical capacity and return to ECF. (3) PNA (pneumonia) Current visit: Yes Status: Suspected CXR reveals BL PNA vs Edema. Patient does not appear acutely ill, I suspect pulmonary edema. Additionally, he is failure to thrive and admits to poor oral intake. It is likely that he is third spacing. He did receive, lasix, Levaquin , Zosyn, and Vancomycin in ED. but I have discontinued those at this time. Consider adding ATB coverage if patient develop respiratory distress. Oxygen support as needed Continuous tele CBC in am Qualifiers: Pneumonia type: due to unspecified organism Laterality: bilateral Qualified Code(s): J18.9 - Pneumonia, unspecified organism (4) Acute exacerbation of CHF (congestive heart failure) Current visit: Yes Status: Suspected New BLE 3+ pitting edema, dyspnea, and fatigue. CXR reveals possible PNA vs Edema,BNP 843. Cardiac w/u negative at this time, but he does have a h/o sever mitral valve stenosis. Will complete echocardiogram to assess for cardiac abnormalities, trend troponins, TSH, my suspicion is that he is third spacing d/ t hypoalbuminemia but I will continue with cardiac w/u to be sure. Holding lasix at this time as he is hypotensive. Consider adding lasix for diuresis when hemodynamically stable. Qualifiers: Congestive heart failure type: unspecified congestive heart failure type Qualified Code(s): I50.9 - Heart failure, unspecified (5) DVT prophylaxis Current visit: Yes Status: Acute Risk for DVT d/t prolonged immobility, patient has dx of failure to thrive and a decrease in physical capacity. Heparin [id number] Internal Medicine - H&P: HPI Chief complaint: Chest pain, bilateral lower extremity swelling, shortness of breath Admitted From: Long-term Nursing [facility] Plans for Post Hospital Care: Transfer [facility] History of present illness: Mr. Keenan is a 81 year old male with a past medical history of type 2 diabetes , CVA, alcoholic cirrhosis, CAD status post CABG in 2014 without stents, severe mitral valve stenosis, and hypertension. Presents to [facility] from long-term care facility today with new dull, nonradiating chest pain, bilateral lower extremity edema 3+ pitting and shortness of breath which has been ongoing for approximately the past week per EMS review and ED physician review as the patient is a limited historian. There is some concern for cardiac etiology as the EKG exhibits T-wave abnormalities in V3 and V4 but they appear to be nonspecific. Patient appears to have possible pneumonia, BNP elevated at 843, chest x-ray reveals bilateral airspace opacities with small bilateral pleural effusions, however in the presence of edema and failure to thrive presentation he is likely malnourished and third spacing. CBC, metabolic panel and troponin within normal limits at this time. Blood cultures drawn and sent in the ED. Urine cultures drawn and sent and ED, positive for UTI with large leukocytes. Being admitted [facility] for further workup and evaluation Past Med Surg Social Fam HX - Past Medical History Medical history: asthma, COPD, coronary artery disease, CVA, hyperlipidemia, hypertension Psychiatric history: no psych history - Past Surgical History Surgical History: hip replacement - Social History Smoking Status: Never smoker Smokeless Tobacco Status: No Alcohol use: none Drug use: none - Family History Mother Living Status: Internal Medicine - H&P: Meds Albuterol Sulfate [Proair Hfa] 2 puff IH Q6H PRN 06/02/16 [History] Aspirin [Lo-Dose Aspirin EC] 81 mg PO DAILY 06/02/16 [History] Budesonide Neb [Pulmicort Neb] 0.5 mg IH QAM 06/02/16 [History] Docusate [Colace] 100 mg PO DAILY PRN 06/02/16 [History] Finasteride [Proscar] 5 mg PO DAILY 06/02/16 [History] Formoterol Fumarate [Perforomist] 20 mcg IH BID 06/02/16 [History] Levothyroxine [Synthroid] 50 mcg PO QAM 06/02/16 [History] Montelukast [Singulair] 10 mg PO HS 06/02/16 [History] Simvastatin [Zocor] 20 mg PO HS 06/02/16 [History] Tamsulosin [Flomax] 0.4 mg PO BID 06/02/16 [History] Bisacodyl [Dulcolax] 10 mg RC DAILY PRN 02/20/17 [History] Cranberry Fruit Extract [Cranberry] 200 mg PO DAILY 02/20/17 [History] Folic Acid 1 mg PO DAILY 02/20/17 [History] Furosemide [Lasix] 40 mg PO BID 02/20/17 [History] Insulin LISPRO [HumaLOG] 2 - 10 units SQ AD 02/20/17 [History] Loratadine [Claritin] 10 mg PO DAILY 02/20/17 [History] Mirtazapine [Remeron] 45 mg PO HS 02/20/17 [History] Nebivolol HCl [Bystolic] 2.5 mg PO QPM 02/20/17 [History] Nitroglycerin [Nitrostat] 0.4 mg SL Q5M PRN 02/20/17 [History] Ondansetron [Zofran] 8 mg PO Q8H PRN 02/20/17 [History] Pantoprazole Sodium 40 mg PO BID 02/20/17 [History] Polyethylene Glycol 3350 [MiraLAX] 17 gm PO BID 02/20/17 [History] Potassium Chloride [Klor-Con 10] 20 meq PO QAM 02/20/17 [History] Sennosides [Senna] 8.6 mg PO QAM 02/20/17 [History] 3 Allergy/AdvReac Type Severity Reaction Status Date / Time No Known Allergies Allergy Verified 01/02/17 12:01 ROS unobtainable: due to mental status All Systems PM: A 10-system review of systems was performed and is negative for pertinent findings except as documented above in the HPI. Review of systems is limited due to mental status - Constitutional Constitutional: fatigue, weakness - Cardiovascular Cardiovascular ROS IM: chest pain (Unable to differentiate whether pain or pressure), dyspnea, edema (Admits to bilateral lower extremity edema however does not know when began or if it is getting worse) - Respiratory Respiratory: cough (Admits to cough but is unable to tell me for how long or if it is productive) - Constitutional Vitals: Temp Pulse Resp BP Pulse Ox 97.8 F 78 16 88/66 99 02/20/17 17:11 02/20/17 14:27 02/20/17 17:11 02/20/17 17:11 02/20/17 14:27 General appearance: Present: A&O X 1, mild distress - Head Head exam: Present: atraumatic, normocephalic - Eye Eye exam: Present: PERRL, conjuntiva pink, sclera anicteric Pupils: Present: PERRL - Respiratory Respiratory exam: Present: decreased breath sounds, rhonchi (Rhonchi noted bilateral lungs anterior and posterior throughout). Absent: respiratory distress, wheezes, tachypnea - Cardiovascular Cardiovascular exam: Present: RRR, +S1, +S2 - GI/Abdominal GI/Abdominal exam: Present: normal bowel sounds, soft, no peritoneal signs. Absent: distended, tenderness - Expanded Lower Extremities Exam Lower Leg exam: Present: swelling (Bilateral lower extremity 3+ pitting edema) - Neurological Exam Neurological exam: Present: alert (Alert but confused, unaware whether or not if this is patient's baseline,). Absent: no focal deficits - Psychiatric Psychiatric exam: Present: normal affect, normal mood - Skin Skin exam: Present: dry, intact Internal Med - H&P Results - Labs CBC & Chem 7: 02/20/17 15:00 02/20/17 15:00 Labs: Short CBC 02/20/17 Range/Units 15:00 WBC 6.7 (4.3-11.1) K/mcL Hgb 9.2 L (12.9-16.9) g/dL Hct 27.7 L (37.5-50.1) % Plt Count 132 L (140-400) K/mcL Neutrophils # 4.8 (1.6-8.9) K/mcL BMP 02/20/17 15:00 Sodium 131 L Potassium 4.0 Chloride 100 Carbon Dioxide 25 BUN 22 Creatinine 0.91 Glucose 99 Calcium 7.7 L Cardiac Enzymes 02/20/17 Range/Units 15:00 Troponin I 0.03 (0-0.03) ng/mL Liver Function 02/20/17 Range/Units 15:00 Total Bilirubin 0.6 (0.2-1.2) mg/dL Direct Bilirubin 0.4 (0.0-0.5) mg/dL AST 18 (5-34) Units/L ALT 9 (0-55) Units/L Alkaline Phosphatase 62 (38-126) Units/L Albumin 1.8 L (3.5-5.0) g/dL Urine 02/20/17 Range/Units 14:55 Urine Color Red A (Yellow) Urine Clarity Hazy (Clear) Urine pH 7.0 (5.0-8.0) pH Units Ur Specific [place] 1.012 (1.010-1.025) Urine Protein 30 H (Neg-Trace) mg/dL Urine Glucose (UA) Normal (Normal) mg/dL - EKG Data -: EKG Interpreted by Myself EKG shows normal: sinus rhythm Rate: normal - EKG Data Prior EKG available for review: yes When compared to previous EKG: there are significant changes Interpretation IM: suggestive of ischemia EKG comments: 02/20/17 17:49 T wave abnormalities in V3/V4 - Impressions ITS Impressions Chest X-Ray 02/20/17 14:41 IMPRESSION: Bilateral airspace opacities with small bilateral pleural effusions. Findings either reflect pneumonia versus edema. D/ / Yocasta Rodriguez MD / Yocasta Rodriguez MD Interpreting Provider: Yocasta Rodriguez MD - Diagnostic Studies Chest x-ray Status: image reviewed by me Additional comments: Bilateral airspace opacities, small bilateral pleural effusions, pneumonia versus edema <Joana Armstrong - Last Filed: 02/21/17 12:30> Date of Encounter: 02/21/17 Internal Medicine - H&P: HPI History of present illness: Mr. Keenan is a 81 year old male All Systems PM: A 10-system review of systems was performed and is negative for pertinent findings except as documented above in the HPI. - Constitutional Vitals: Temp Pulse Resp BP Pulse Ox 97.4 F L 73 22 104/64 100 02/21/17 10:41 02/21/17 10:41 02/21/17 11:37 02/21/17 10:41 02/21/17 11:37 Internal Med - H&P Results - Labs CBC & Chem 7: 02/21/17 05:28 02/21/17 05:28 Labs: Short CBC 02/21/17 Range/Units 05:28 WBC 5.8 (4.3-11.1) K/mcL Hgb 8.2 L (12.9-16.9) g/dL Hct 24.5 L (37.5-50.1) % Plt Count 130 L (140-400) K/mcL Neutrophils # 4.5 (1.6-8.9) K/mcL BMP 02/21/17 05:28 Sodium 131 L Potassium 3.7 Chloride 101 Carbon Dioxide 24 BUN 21 Creatinine 0.88 Glucose 81 Calcium 7.3 L Cardiac Enzymes 02/20/17 02/21/17 Range/Units 21:04 05:28 Troponin I 0.04 H* 0.03 (0-0.03) ng/mL Liver Function 02/21/17 Range/Units 05:28 Total Bilirubin 0.6 (0.2-1.2) mg/dL AST 24 (5-34) Units/L ALT 8 (0-55) Units/L Alkaline Phosphatase 51 (38-126) Units/L Albumin 1.5 L (3.5-5.0) g/dL - Attending Attestation I have personally performed a face to face evaluation on this patient and I discussed the assessment and plan with the nurse practitioner. I have reviewed and agree with the documented care plan. History and Exam by me shows: Mr. Keenan is a 81 year old male with a past medical history of type 2 diabetes , CVA, alcoholic cirrhosis, CAD status post CABG in 2014 without stents, severe mitral valve stenosis, and hypertension. Presents to [facility] from long-term care facility today with new dull, non radiating chest pain, bilateral lower extremity edema 3+ pitting and shortness of breath which has been ongoing for approximately the past week per EMS review and ED physician review as the patient is a limited historian. There is some concern for cardiac etiology as the EKG exhibits T-wave abnormalities in V3 and V4 but they appear to be nonspecific. Patient appears to have possible pneumonia, BNP elevated at 843, chest x-ray reveals bilateral airspace opacities with small bilateral pleural effusions, however in the presence of edema and failure to thrive presentation he is likely malnourished and third spacing. CBC, metabolic panel and troponin within normal limits at this time. Blood cultures drawn and sent in the ED. Urine cultures drawn and sent and ED, positive for UTI with large leukocytes. Gen : A, A, O x 3 Chest : Diminished BS b/l, mild crackles + Ronchi + Heart; S1 S2 +, 2/6 ESM Ext: 2-3 + pitting edema, Abd; Mild ascities, Soft a/p 1. Acute pneumonia - mostly aspirational with supra infected by bacteria Cont empirical abx Duoneb and O2 2. Failure to thrive / physical deconditioning 3. 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
[2017-02-20] MEDS ORDERED: Ipratropium/Albuterol Neb 3 ML IH SCH (18:00)
[2017-02-20] MEDS: *HR* Heparin 5,000 UNIT/ML VIAL SQ SCH (18:45)
[2017-02-20] MEDS: Insulin LISPRO 300 UNITS/3 ML VIAL SQ SCH (20:40)
[2017-02-20] MEDS: Mirtazapine 15 MG TABLET PO SCH (20:41)
[2017-02-20] MEDS: Ipratropium/Albuterol Neb 3 ML IH SCH (23:01)
[2017-02-21] MEDS: Ampicillin/Sulbactam 1,500 MG in 0.9 % Sodium Chloride Mini Bag 100 ML IVPB SCH ×5 (01:35→23:54)
[2017-02-21] MEDS ORDERED: Piperacillin/Tazobactam 3.375 GM in D5% in Water (Mini-Bag+) 100 ML IVPB SCH (02:00)
[2017-02-21] MEDS: Ipratropium/Albuterol Neb 3 ML IH SCH ×6 (04:00→23:42)
[2017-02-21] MEDS: *HR* Heparin 5,000 UNIT/ML VIAL SQ SCH ×2 (06:36→17:05)
[2017-02-21 06:53] LABS: Basophils % 0.3 %; Eosinophils # 0.3 K/mcL (0.0-0.6); Eosinophils % 4.5 %; Hematocrit 24.5 % (37.5-50.1); Hemoglobin 8.2 g/dL (12.9-16.9); Immature Granulocytes % 0.7 % (0-4); Lymphocytes # 0.8 K/mcL (0.6-4.6); Lymphocytes % 14.4 %; Mean Corpuscular HGB Conc 33.5 g/dL (31.6-35.5); Mean Corpuscular Hemoglobin 32.5 pg (28.0-33.3); Mean Corpuscular Volume 97.2 fL (83.0-100.0); Mean Platelet Volume 9.4 fL (9.4-12.4); Monocytes # 0.2 K/mcL (0.0-1.3); Monocytes % 3.1 %; Neutrophils # 4.5 K/mcL (1.6-8.9); Platelet Count 130 K/mcL (140-400); Red Blood Count 2.52 M/mcL (4.19-5.50); Red Cell Distribution Width 14.5 % (11.5-14.5)
[2017-02-21 07:07] LABS: Alanine Aminotransferase 8 Units/L (0-55); Albumin/Globulin Ratio 0.5 (1.1-2.2); Alkaline Phosphatase 51 Units/L (38-126); Aspartate Amino Transferase 24 Units/L (5-34); BUN/Creatinine Ratio 24 (6-26); Bilirubin,Total 0.6 mg/dL (0.2-1.2); Blood Urea Nitrogen 21 mg/dL (8-26); Calcium 7.3 mg/dL (8.6-10.8); Carbon Dioxide 24 mEq/L (19-29); Chloride 101 mEq/L (98-109); Globulin 3.2 g/dL (2.4-3.5); Glucose 81 mg/dL (70-99); Osmolality,Calculated 274 (280-300); Potassium 3.7 mEq/L (3.5-4.5); Sodium 131 mEq/L (136-145); Total Protein 4.7 g/dL (6.0-8.3); eGFR For African Americans > 60 (> 60); eGFR For Non-African Americans > 60 (> 60)
[2017-02-21 07:18] LABS: Albumin 1.5 g/dL (3.5-5.0)
[2017-02-21] MEDS: Insulin LISPRO 300 UNITS/3 ML VIAL SQ SCH ×4 (08:09→23:19)
[2017-02-21] MEDS ORDERED: Levofloxacin 750 MG/150 ML 750 MG/150 ML BAG IVPB SCH (09:00)
[2017-02-21] MEDS ORDERED: Vancomycin 1,000 MG in D5% in Water 250 ML IVPB SCH (09:00)
[2017-02-21] MEDS: Finasteride 5 MG TABLET PO SCH (10:09)
[2017-02-21] MEDS: Loratadine 10 MG TABLET PO SCH (10:09)
[2017-02-21] MEDS: Sennosides 8.6 MG TABLET PO SCH (10:09)
[2017-02-21] MEDS: Aspirin Enteric Coated 81 MG Tablet PO SCH (10:09)
[2017-02-21] MEDS: Folic Acid 1 MG TABLET PO SCH (10:09)
[2017-02-21] MEDS: Budesonide Neb 0.5 MG/2 ML IH SCH (11:35)
--- NOTE | 2017-02-21 16:53 | Internal Med Progress Note ---
Date of Encounter: 02/21/17 Time of Encounter: 16:51 - Assessment and plan (1) PNA (pneumonia) Current Visit: Yes Status: Suspected Assessment and plan: Elderly patient with multiple comorbid conditions. Admitted with possible bilateral lower lobe pneumonia. Plan: We will continue present antibiotics for now. Qualifiers: Pneumonia type: due to unspecified organism Laterality: bilateral Qualified Code(s): J18.9 - Pneumonia, unspecified organism (2) Mitral valve stenosis Current Visit: No Status: Acute Assessment and plan: Patient is a severe mitral valve stenosis. He was evaluated at [facility] couple of years back for possible surgery/intervention. Patient's physical condition deteriorated and hence he is no murmur candidate for any further intervention/surgery. 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 His blood pressure is very well controlled and will continue same medication. Qualifiers: Hypertension type: essential hypertension Qualified Code(s): I10 - Essential (primary) hypertension (4) Adult failure to thrive Current Visit: Yes Status: Acute Assessment and plan: Patient is a background history of for colic cirrhosis/COPD/coronary artery disease. Patient is very cachectic and losing weight. Plan: A long discussion with the patient's daughter who is RN. Patient's daughter is also POA. She feels that patient should be evaluated by palliative care and if possible hospice. - Subjective Interval history: Patient seen and examined. Chart reviewed. Patient denies chest pain, shortness of breath, abdominal pain, nausea, vomiting , dizziness and diarrhea. - Constitutional Vitals: Temp Pulse Resp BP Pulse Ox 97.9 F 75 20 100/68 94 02/21/17 16:27 02/21/17 16:27 02/21/17 16:27 02/21/17 16:27 02/21/17 16:27 General appearance: Present: A&O X 1, mild distress - Head Head exam: Present: atraumatic, normocephalic - Eye Eye exam: Present: PERRL, conjuntiva pink, sclera anicteric Pupils: Present: PERRL - Neck Neck exam general surgery: Present: supple, trachea midline. Absent: lymphadenopathy - Respiratory Respiratory exam: Present: CTAB. Absent: accessory muscle use, rales, rhonchi, wheezes - Cardiovascular Cardiovascular exam: Present: RRR, +S1, +S2. Absent: diastolic murmur, gallop, rubs, systolic murmur - GI/Abdominal GI/Abdominal exam: Present: normal bowel sounds, soft, no peritoneal signs. Absent: distended, tenderness - Extremities Exam Extremities exam: Present: warm, radial pulses palpable and symmetrical. Absent : calf tenderness, cyanotic, pedal edema - Neurological Exam Neurological exam: Present: CN II-XII intact, oriented X3, no focal deficits. Absent: pronater drift, facial droop, speech deficit - Skin Skin exam: Present: dry, intact Internal Medicine: Result - Labs CBC & Chem 7: 02/21/17 05:28 02/21/17 05:28 Labs: Short CBC 02/21/17 Range/Units 05:28 WBC 5.8 (4.3-11.1) K/mcL Hgb 8.2 L (12.9-16.9) g/dL Hct 24.5 L (37.5-50.1) % Plt Count 130 L (140-400) K/mcL Neutrophils # 4.5 (1.6-8.9) K/mcL BMP 02/21/17 05:28 Sodium 131 L Potassium 3.7 Chloride 101 Carbon Dioxide 24 BUN 21 Creatinine 0.88 Glucose 81 Calcium 7.3 L Cardiac Enzymes 02/20/17 02/21/17 Range/Units 21:04 05:28 Troponin I 0.04 H* 0.03 (0-0.03) ng/mL Liver Function 02/21/17 Range/Units 05:28 Total Bilirubin 0.6 (0.2-1.2) mg/dL AST 24 (5-34) Units/L ALT 8 (0-55) Units/L Alkaline Phosphatase 51 (38-126) Units/L Albumin 1.5 L (3.5-5.0) g/dL - ABG Interpretation ABG results: PT/INR, D-dimer PT 13.2 Seconds (9.4-12.1) H 02/20/17 15:00 Consult Discharge Plan - Plan Referrals: NONE,PCP [Primary Care Provider] -
[2017-02-21] MEDS: Mirtazapine 15 MG TABLET PO SCH (22:05)
[2017-02-22] MEDS: Ipratropium/Albuterol Neb 3 ML IH SCH ×6 (04:27→23:29)
[2017-02-22] MEDS: Ampicillin/Sulbactam 1,500 MG in 0.9 % Sodium Chloride Mini Bag 100 ML IVPB SCH ×4 (05:15→23:47)
[2017-02-22] MEDS: *HR* Heparin 5,000 UNIT/ML VIAL SQ SCH ×2 (05:17→16:46)
[2017-02-22] MEDS: Insulin LISPRO 300 UNITS/3 ML VIAL SQ SCH ×4 (07:17→21:07)
[2017-02-22 09:11] LABS: Basophils % 0.2 %; Eosinophils # 0.1 K/mcL (0.0-0.6); Eosinophils % 2.7 %; Hematocrit 27.1 % (37.5-50.1); Hemoglobin 8.9 g/dL (12.9-16.9); Immature Granulocytes % 0.8 % (0-4); Lymphocytes # 0.9 K/mcL (0.6-4.6); Lymphocytes % 16.7 %; Mean Corpuscular HGB Conc 32.8 g/dL (31.6-35.5); Mean Corpuscular Hemoglobin 31.9 pg (28.0-33.3); Mean Corpuscular Volume 97.1 fL (83.0-100.0); Mean Platelet Volume 9.2 fL (9.4-12.4); Monocytes # 0.2 K/mcL (0.0-1.3); Monocytes % 4.2 %; Neutrophils # 3.9 K/mcL (1.6-8.9); Platelet Count 139 K/mcL (140-400); Red Blood Count 2.79 M/mcL (4.19-5.50); Red Cell Distribution Width 14.4 % (11.5-14.5); Segmented Neutrophils % 75.4 %
[2017-02-22 09:25] LABS: Alanine Aminotransferase 8 Units/L (0-55); Albumin 1.6 g/dL (3.5-5.0); Albumin/Globulin Ratio 0.5 (1.1-2.2); Alkaline Phosphatase 56 Units/L (38-126); Aspartate Amino Transferase 20 Units/L (5-34); BUN/Creatinine Ratio 19 (6-26); Bilirubin,Total 0.5 mg/dL (0.2-1.2); Blood Urea Nitrogen 19 mg/dL (8-26); Calcium 7.5 mg/dL (8.6-10.8); Carbon Dioxide 28 mEq/L (19-29); Chloride 101 mEq/L (98-109); Globulin 3.3 g/dL (2.4-3.5); Glucose 90 mg/dL (70-99); Osmolality,Calculated 280 (280-300); Potassium 3.6 mEq/L (3.5-4.5); Sodium 134 mEq/L (136-145); Total Protein 4.9 g/dL (6.0-8.3); eGFR For African Americans > 60 (> 60); eGFR For Non-African Americans > 60 (> 60)
[2017-02-22] MEDS: Sennosides 8.6 MG TABLET PO SCH (09:28)
[2017-02-22] MEDS: Finasteride 5 MG TABLET PO SCH (09:28)
[2017-02-22] MEDS: Folic Acid 1 MG TABLET PO SCH (09:28)
[2017-02-22] MEDS: Loratadine 10 MG TABLET PO SCH (09:28)
[2017-02-22] MEDS: Aspirin Enteric Coated 81 MG Tablet PO SCH (09:29)
[2017-02-22] MEDS: Budesonide Neb 0.5 MG/2 ML IH SCH (11:48)
--- NOTE | 2017-02-22 14:45 | Internal Med Progress Note ---
Date of Encounter: 02/22/17 Time of Encounter: 14:42 - Assessment and plan (1) PNA (pneumonia) Current Visit: Yes Status: Suspected Assessment and plan: Elderly patient with multiple comorbid conditions. Admitted with possible bilateral lower lobe pneumonia. Plan: We will continue present antibiotics for now. 02/22/2017 We will continue present antibiotics for pneumonia. Antibiotics: Day 2. Possibility evaluation by palliative care tomorrow. Qualifiers: Pneumonia type: due to unspecified organism Laterality: bilateral Qualified Code(s): J18.9 - Pneumonia, unspecified organism (2) Mitral valve stenosis Current Visit: No Status: Acute Assessment and plan: Patient is a severe mitral valve stenosis. He was evaluated at [facility] couple of years back for possible surgery/intervention. Patient's physical condition deteriorated and hence he is no murmur candidate for any further intervention/surgery. 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 His blood pressure is very well controlled and will continue same medication. Qualifiers: Hypertension type: essential hypertension Qualified Code(s): I10 - Essential (primary) hypertension (4) Adult failure to thrive Current Visit: Yes Status: Acute Assessment and plan: Patient is a background history of for colic cirrhosis/COPD/coronary artery disease. Patient is very cachectic and losing weight. Plan: A long discussion with the patient's daughter who is RN. Patient's daughter is also POA. She feels that patient should be evaluated by palliative care and if possible hospice. - Subjective Interval history: Patient seen and examined. Chart reviewed. Patient denies chest pain, shortness of breath, abdominal pain, nausea, vomiting , dizziness and diarrhea. 02/22/2017 Seen and examined Chart reviewed. Patient is comfortably lying in bed. Patient denies cough, shortness of breath, chest pain, nausea, vomiting diarrhea and dizziness. - Constitutional Vitals: Temp Pulse Resp BP Pulse Ox 97.9 F 75 16 106/71 97 02/22/17 11:05 02/22/17 11:05 02/22/17 12:12 02/22/17 11:05 02/22/17 12:12 General appearance: Present: A&O X 1, mild distress - Head Head exam: Present: atraumatic, normocephalic - Eye Eye exam: Present: PERRL, conjuntiva pink, sclera anicteric Pupils: Present: PERRL - Neck Neck exam general surgery: Present: supple, trachea midline. Absent: lymphadenopathy - Respiratory Respiratory exam: Present: CTAB. Absent: accessory muscle use, rales, rhonchi, wheezes - Cardiovascular Cardiovascular exam: Present: RRR, +S1, +S2. Absent: diastolic murmur, gallop, rubs, systolic murmur - GI/Abdominal GI/Abdominal exam: Present: normal bowel sounds, soft, no peritoneal signs. Absent: distended, tenderness - Extremities Exam Extremities exam: Present: warm, radial pulses palpable and symmetrical. Absent : calf tenderness, cyanotic, pedal edema - Neurological Exam Neurological exam: Present: CN II-XII intact, oriented X3, no focal deficits. Absent: pronater drift, facial droop, speech deficit - Skin Skin exam: Present: dry, intact Internal Medicine: Result - Labs CBC & Chem 7: 02/22/17 08:32 02/22/17 08:32 Labs: Short CBC 02/22/17 Range/Units 08:32 WBC 5.2 (4.3-11.1) K/mcL Hgb 8.9 L (12.9-16.9) g/dL Hct 27.1 L (37.5-50.1) % Plt Count 139 L (140-400) K/mcL Neutrophils # 3.9 (1.6-8.9) K/mcL BMP 02/22/17 08:32 Sodium 134 L Potassium 3.6 Chloride 101 Carbon Dioxide 28 BUN 19 Creatinine 0.99 Glucose 90 Calcium 7.5 L Liver Function 02/22/17 Range/Units 08:32 Total Bilirubin 0.5 (0.2-1.2) mg/dL AST 20 (5-34) Units/L ALT 8 (0-55) Units/L Alkaline Phosphatase 56 (38-126) Units/L Albumin 1.6 L (3.5-5.0) g/dL - ABG Interpretation ABG results: PT/INR, D-dimer PT 13.2 Seconds (9.4-12.1) H 02/20/17 15:00 Consult Discharge Plan - Plan Referrals: NONE,PCP [Primary Care Provider] -
[2017-02-22] MEDS: Mirtazapine 15 MG TABLET PO SCH (21:05)
[2017-02-23] MEDS: Ipratropium/Albuterol Neb 3 ML IH SCH ×6 (04:10→23:32)
[2017-02-23 05:59] LABS: Basophils % 0.6 %; Eosinophils # 0.2 K/mcL (0.0-0.6); Eosinophils % 4.7 %; Hematocrit 26.2 % (37.5-50.1); Hemoglobin 8.9 g/dL (12.9-16.9); Immature Granulocytes % 0.8 % (0-4); Lymphocytes # 1.3 K/mcL (0.6-4.6); Lymphocytes % 25.6 %; Mean Corpuscular Hemoglobin 32.8 pg (28.0-33.3); Mean Corpuscular Volume 96.7 fL (83.0-100.0); Monocytes # 0.3 K/mcL (0.0-1.3); Monocytes % 4.8 %; Neutrophils # 3.3 K/mcL (1.6-8.9); Platelet Count 150 K/mcL (140-400); Red Blood Count 2.71 M/mcL (4.19-5.50); Red Cell Distribution Width 14.5 % (11.5-14.5); Segmented Neutrophils % 63.5 %
[2017-02-23 06:18] LABS: Alanine Aminotransferase 12 Units/L (0-55); Albumin/Globulin Ratio 0.5 (1.1-2.2); Alkaline Phosphatase 58 Units/L (38-126); Aspartate Amino Transferase 25 Units/L (5-34); BUN/Creatinine Ratio 22 (6-26); Bilirubin,Total 0.4 mg/dL (0.2-1.2); Blood Urea Nitrogen 19 mg/dL (8-26); Calcium 7.5 mg/dL (8.6-10.8); Carbon Dioxide 26 mEq/L (19-29); Chloride 104 mEq/L (98-109); Globulin 3.4 g/dL (2.4-3.5); Glucose 92 mg/dL (70-99); Osmolality,Calculated 284 (280-300); Potassium 3.8 mEq/L (3.5-4.5); Sodium 136 mEq/L (136-145); eGFR For African Americans > 60 (> 60); eGFR For Non-African Americans > 60 (> 60)
[2017-02-23 06:25] LABS: Albumin 1.6 g/dL (3.5-5.0)
[2017-02-23] MEDS: Ampicillin/Sulbactam 1,500 MG in 0.9 % Sodium Chloride Mini Bag 100 ML IVPB SCH ×3 (06:27→17:45)
[2017-02-23] MEDS: *HR* Heparin 5,000 UNIT/ML VIAL SQ SCH ×2 (06:27→17:44)
[2017-02-23] MEDS: Budesonide Neb 0.5 MG/2 ML IH SCH (07:40)
--- NOTE | 2017-02-23 08:36 | Electrocardiograph Report ---
[place] [id number] Test Date: 2017-02-20 Pat Name: Branden Keenan Department: 102 Room: 2A16 Gender: M Rn Ortho: : 1935 Requested By: Elvis Azar Order Number: [id number] Reading MD: Huber Geronimo DO Measurements Intervals [place] Rate: 73 P: 16 IL: 160 QRS: 38 QRSD: 93 T: 27 QT: 415 QTc: 441 Interpretive Statements SINUS RHYTHM LOW QRS VOLTAGE IN EXTREMITY LEADS ANTEROSEPTAL ST-T CHANGES SUGGESTIVE OF ISCHEMIA Electronically Signed On 02-22-2017 10:18:14 EDT by Huber Geronimo DO
[2017-02-23] MEDS: Insulin LISPRO 300 UNITS/3 ML VIAL SQ SCH ×4 (08:39→22:58)
[2017-02-23] MEDS: Aspirin Enteric Coated 81 MG Tablet PO SCH (09:44)
[2017-02-23] MEDS: Loratadine 10 MG TABLET PO SCH (09:45)
[2017-02-23] MEDS: Sennosides 8.6 MG TABLET PO SCH (09:46)
[2017-02-23] MEDS: Finasteride 5 MG TABLET PO SCH (09:46)
[2017-02-23] MEDS: Folic Acid 1 MG TABLET PO SCH (09:46)
--- NOTE | 2017-02-23 11:32 | Internal Med Progress Note ---
<Lino Marte P - Last Filed: 02/23/17 18:59> Date of Encounter: 02/23/17 - Assessment and plan (1) PNA (pneumonia) Current Visit: Yes Status: Suspected Qualifiers: Pneumonia type: due to unspecified organism Laterality: bilateral Qualified Code(s): J18.9 - Pneumonia, unspecified organism (2) Mitral valve stenosis Current Visit: No Status: Acute Qualifiers: Cardiac valve disease etiology: etiology unspecified Qualified Code(s): I05.0 - Rheumatic mitral stenosis (3) Hypertension Current Visit: No Status: Acute Qualifiers: Hypertension type: essential hypertension Qualified Code(s): I10 - Essential (primary) hypertension (4) Adult failure to thrive Current Visit: Yes Status: Acute - Constitutional Vitals: Temp Pulse Resp BP Pulse Ox 97.8 F 74 18 114/82 96 02/23/17 15:42 02/23/17 15:42 02/23/17 15:42 02/23/17 15:42 02/23/17 15:42 Internal Medicine: Result - Labs CBC & Chem 7: 02/23/17 05:35 02/23/17 05:35 Labs: Short CBC 02/23/17 Range/Units 05:35 WBC 5.2 (4.3-11.1) K/mcL Hgb 8.9 L (12.9-16.9) g/dL Hct 26.2 L (37.5-50.1) % Plt Count 150 (140-400) K/mcL Neutrophils # 3.3 (1.6-8.9) K/mcL BMP 02/23/17 05:35 Sodium 136 Potassium 3.8 Chloride 104 Carbon Dioxide 26 BUN 19 Creatinine 0.86 Glucose 92 Calcium 7.5 L Liver Function 02/23/17 Range/Units 05:35 Total Bilirubin 0.4 (0.2-1.2) mg/dL AST 25 (5-34) Units/L ALT 12 (0-55) Units/L Alkaline Phosphatase 58 (38-126) Units/L Albumin 1.6 L (3.5-5.0) g/dL - ABG Interpretation ABG results: PT/INR, D-dimer PT 13.2 Seconds (9.4-12.1) H 02/20/17 15:00 Consult Discharge Plan - Plan Referrals: NONE,PCP [Primary Care Provider] - - Attending Attestation I examined this patient and my medical decision-making was reviewed with the Resident Physician. I agree with the documented findings, disposition and treatment plan as described except to the extent set forth below. Multiple medical issues. Advanced cirrhosis of liver. Likely etiology is alcoholic. Patient's daughter who is a POA who works as a. She is of opinion that she should be monitored in the decision-making process. I understand that tomorrow morning 10 AM there will be a palliative care and a family meeting. Patient's family/patient is leaning towards hospice. <Abbie García - Last Filed: 02/23/17 22:07> Date of Encounter: 02/23/17 Time of Encounter: 10:15 - Assessment and plan (1) Adult failure to thrive Current Visit: Yes Status: Acute Assessment and plan: Patient is a background history of for colic cirrhosis/COPD/coronary artery disease. Patient is very cachectic and losing weight. Plan: A long discussion with the patient's daughter who is RN. Patient's daughter is also POA. She feels that patient should be evaluated by palliative care consulted and has had discussion with pt's daughter, they will have longer discussion tomorrow when daughter has more time. (2) PNA (pneumonia) Current Visit: Yes Status: Suspected Assessment and plan: Elderly patient with multiple comorbid conditions. Admitted with possible bilateral lower lobe pneumonia. Plan: We will continue present antibiotics for now. 02/22/2017 We will continue present antibiotics for pneumonia. Antibiotics: Day 2. Possibility evaluation by palliative care tomorrow. 02/23/17 Antibiotics day 3 Pt states he feels about the same as yesterday Qualifiers: Pneumonia type: due to unspecified organism Laterality: bilateral (3) Hypertension Current Visit: No Status: Acute Assessment and plan: Patient is known to have essential hypertension. His blood pressure is very well controlled and will continue same medication. Qualifiers: Hypertension type: essential hypertension Qualified Code(s): I10 - Essential (primary) hypertension (4) Mitral valve stenosis Current Visit: No Status: Acute Assessment and plan: Patient has severe mitral valve stenosis. He was evaluated at [facility] couple of years back for possible surgery/intervention. Patient's physical condition deteriorated and hence he is no murmur candidate for any further intervention/surgery. Qualifiers: Cardiac valve disease etiology: etiology unspecified Qualified Code(s): I05.0 - Rheumatic mitral stenosis - Time Spent With Patient less than 15 minutes - Subjective Interval history: Pt seen and examined this morning, was resting comfortably in bed eating [employer], has no complaints today. Denies chest pain, shortness of breath, nausea, vomiting, abdominal pain, diarrhea, constipation. Chart reviewed. - Constitutional Vitals: Temp Pulse Resp BP Pulse Ox 97.6 F 72 17 110/82 97 02/23/17 10:59 02/23/17 10:59 02/23/17 10:59 02/23/17 10:59 02/23/17 10:59 General appearance: Present: cachectic, cooperative, pleasant, no acute distress , answers questions appropriately - Head Head exam: Present: atraumatic, normocephalic - Eye Eye exam: Present: normal appearance, PERRL - Neck Neck exam general surgery: Present: full ROM, normal inspection, trachea midline - Respiratory Respiratory exam: Present: CTAB. Absent: accessory muscle use, respiratory distress, tachypnea - Cardiovascular Cardiovascular exam: Present: RRR, +S1, +S2 - GI/Abdominal GI/Abdominal exam: Present: normal bowel sounds, soft. Absent: distended, guarding, tenderness - Expanded Lower Extremities Exam Lower Leg exam: Present: swelling (b/l +2 pitting edema) - Neurological Exam Neurological exam: Present: alert. Absent: facial droop, speech deficit - Psychiatric Psychiatric exam: Present: flat affect. Absent: agitated, anxious Internal Medicine: Result - Labs CBC & Chem 7: 02/23/17 05:35 02/23/17 05:35 Labs: Short CBC 02/23/17 Range/Units 05:35 WBC 5.2 (4.3-11.1) K/mcL Hgb 8.9 L (12.9-16.9) g/dL Hct 26.2 L (37.5-50.1) % Plt Count 150 (140-400) K/mcL Neutrophils # 3.3 (1.6-8.9) K/mcL BMP 02/23/17 05:35 Sodium 136 Potassium 3.8 Chloride 104 Carbon Dioxide 26 BUN 19 Creatinine 0.86 Glucose 92 Calcium 7.5 L Liver Function 02/23/17 Range/Units 05:35 Total Bilirubin 0.4 (0.2-1.2) mg/dL AST 25 (5-34) Units/L ALT 12 (0-55) Units/L Alkaline Phosphatase 58 (38-126) Units/L Albumin 1.6 L (3.5-5.0) g/dL - ABG Interpretation ABG results: PT/INR, D-dimer PT 13.2 Seconds (9.4-12.1) H 02/20/17 15:00
--- NOTE | 2017-02-23 15:49 | Palliative - Consult Note ---
Date of Encounter: 02/23/17 Time of Encounter: 11:30 - Assessment and Plan (1) Severe protein-calorie malnutrition Current Visit: Yes Status: Acute Assessment and plan: Rn Transitional Care following. Receiving ensure supplements. Also began on Megace. Monitor (2) Dyspnea Current Visit: Yes Status: Acute Assessment and plan: Continue supportive o2/nebs/IV Antibiotics. Add low dose Morphine SL for severe dyspnea. Monitor Qualifiers: Dyspnea type: unspecified Qualified Code(s): R06.00 - Dyspnea, unspecified (3) Counseling regarding advanced care planning and goals of care Current Visit: Yes Status: Acute Assessment and plan: Patient is confused today. D/W Daughter Tiffany Javier via telephone. She was at work and unable to have long discussion. She did inform me that patient was DNRCC-Arrest prior to admission, and would like this to continue. She will be calling me for phone conference at 1000 tomorrow, as she did not have long to speak today. Will f/u tomorrow am. D/W Dr. Powell. (4) Adult failure to thrive Current Visit: Yes Status: Acute (5) PNA (pneumonia) Current Visit: Yes Status: Suspected Qualifiers: Pneumonia type: due to unspecified organism Laterality: bilateral Qualified Code(s): J18.9 - Pneumonia, unspecified organism (6) Cirrhosis Current Visit: Yes Status: Acute Qualifiers: Hepatic cirrhosis type: alcoholic cirrhosis Ascites presence: with ascites Qualified Code(s): K70.31 - Alcoholic cirrhosis of liver with ascites Palliative-CN HPI - Data of Consult Consult date: 02/23/17 Requesting Physician: Lino Marte MD Primary Care Provider: PCP NONE - Consult Narrative History of present illness: Mr. Keenan is a 81 year old male with a history of alcoholic cirrhosis, DM, CAD s/p CABG, severe mitral valve stenosis, CVA, HTN who presented to hospital with c/o bilateral lower extremity edema, and shortness of breath. Currently being treated for pneumonia. He has been at [facility] since discharged from a [place] [facility] for rehabilitation. He has severe protein malnutrition with albumin of 1.6 and third spacing of fluid. He had been seen previously in [place] and considered for heart valve replacement, however, had further decline in health and no longer a candidate. Upon my visit, he is tearful, stating that he just wants to . He states he is weak and tired, and doesn't want to be bothered. He states he doesn't want anything else done to him. However, he is confused and is oriented to name only. He can tell me his daughter's name, and states she is only child. I spoke with her by phone and she did confirm this. CC: Lnio Marte MD Past Med Surg Social Fam HX - Past Medical History Medical history: asthma, COPD, coronary artery disease, CVA, hyperlipidemia, hypertension Psychiatric history: no psych history - Past Surgical History Surgical History: hip replacement (left) - Social History Smoking Status: Never smoker Smokeless Tobacco Status: No Alcohol use: none Drug use: none - Family History Mother Living Status: Medications and Allergies Albuterol Sulfate [Proair Hfa] 2 puff IH Q6H PRN 06/02/16 [History] Aspirin [Lo-Dose Aspirin EC] 81 mg PO DAILY 06/02/16 [History] Budesonide Neb [Pulmicort Neb] 0.5 mg IH QAM 06/02/16 [History] Docusate [Colace] 100 mg PO DAILY PRN 06/02/16 [History] Finasteride [Proscar] 5 mg PO DAILY 06/02/16 [History] Formoterol Fumarate [Perforomist] 20 mcg IH BID 06/02/16 [History] Levothyroxine [Synthroid] 50 mcg PO QAM 06/02/16 [History] Montelukast [Singulair] 10 mg PO HS 06/02/16 [History] Simvastatin [Zocor] 20 mg PO HS 06/02/16 [History] Tamsulosin [Flomax] 0.4 mg PO BID 06/02/16 [History] Bisacodyl [Dulcolax] 10 mg RC DAILY PRN 02/20/17 [History] Cranberry Fruit Extract [Cranberry] 200 mg PO DAILY 02/20/17 [History] Folic Acid 1 mg PO DAILY 02/20/17 [History] Furosemide [Lasix] 40 mg PO BID 02/20/17 [History] Insulin LISPRO [HumaLOG] 2 - 10 units SQ AD 02/20/17 [History] Loratadine [Claritin] 10 mg PO DAILY 02/20/17 [History] Mirtazapine [Remeron] 45 mg PO HS 02/20/17 [History] Nebivolol HCl [Bystolic] 2.5 mg PO QPM 02/20/17 [History] Nitroglycerin [Nitrostat] 0.4 mg SL Q5M PRN 02/20/17 [History] Ondansetron [Zofran] 8 mg PO Q8H PRN 02/20/17 [History] Pantoprazole Sodium 40 mg PO BID 02/20/17 [History] Polyethylene Glycol 3350 [MiraLAX] 17 gm PO BID 02/20/17 [History] Potassium Chloride [Klor-Con 10] 20 meq PO QAM 02/20/17 [History] Sennosides [Senna] 8.6 mg PO QAM 02/20/17 [History] 3 Allergy/AdvReac Type Severity Reaction Status Date / Time No Known Allergies Allergy Verified 06/02/16 12:01 ROS unobtainable: due to mental status Palliative Care-Exam - Constitutional Vitals: Temp Pulse Resp BP Pulse Ox 97.8 F 74 18 114/82 96 02/23/17 15:42 02/23/17 15:42 02/23/17 15:42 02/23/17 15:42 02/23/17 15:42 General appearance: Present: no acute distress - Head Head Exam: Present: normal inspection, normocephalic - Eye Eye exam: Present: normal appearance, PERRL - ENT ENT exam: Present: mucous membranes dry - Respiratory Additional comments: Scattered rhonchi throughout - Cardiovascular Cardiovascular exam: Present: +S1, +S2, systolic murmur - GI/Abdominal Exam GI/Abdominal exam: Present: distended, firm, normal bowel sounds - Extremities Exam Additional comments: Generalized edema to bilateral lower extremities 2-3+. 2+ to upper extremities - Neurological Exam Neurological exam: Present: alert Additional comments: Oriented to name only. Reoriented to place, time, and situation - Psychiatric Psychiatric exam: Present: flat affect - Skin Skin exam: Present: pallor, warm Internal Medicine - CN: Reslt - Labs CBC & Chem 7: 02/23/17 05:35 02/23/17 05:35 Labs: Short CBC 02/23/17 Range/Units 05:35 WBC 5.2 (4.3-11.1) K/mcL Hgb 8.9 L (12.9-16.9) g/dL Hct 26.2 L (37.5-50.1) % Plt Count 150 (140-400) K/mcL Neutrophils # 3.3 (1.6-8.9) K/mcL BMP 02/23/17 05:35 Sodium 136 Potassium 3.8 Chloride 104 Carbon Dioxide 26 BUN 19 Creatinine 0.86 Glucose 92 Calcium 7.5 L Liver Function 02/23/17 Range/Units 05:35 Total Bilirubin 0.4 (0.2-1.2) mg/dL AST 25 (5-34) Units/L ALT 12 (0-55) Units/L Alkaline Phosphatase 58 (38-126) Units/L Albumin 1.6 L (3.5-5.0) g/dL - ABG Interpretation ABG results: PT/INR, D-dimer PT 13.2 Seconds (9.4-12.1) H 02/20/17 15:00 Consult Discharge Plan - Plan Referrals: NONE,PCP [Primary Care Provider] - Palliative Quality Palliative Quality: Screen for Code Status: Yes, Screen for Goals of Care: Yes, Screen for Pain: Yes, If Pain Regimen Started, Initiate Bowel Regimen: Yes, Screen for Nausea/Vomitting: Yes
[2017-02-23] MEDS ORDERED: Morphine Oral CONC 5 MG/0.25 ML ORAL.SYG PO PRN (16:05)
[2017-02-23] MEDS ORDERED: Furosemide 40 MG/4 ML VIAL IVP ONE (21:19)
[2017-02-23] MEDS: Mirtazapine 15 MG TABLET PO SCH (21:46)
[2017-02-24] MEDS ORDERED: Furosemide 20 MG/2 ML VIAL IVP ONE (00:10)
[2017-02-24] MEDS: Ampicillin/Sulbactam 1,500 MG in 0.9 % Sodium Chloride Mini Bag 100 ML IVPB SCH ×4 (01:16→18:29)
[2017-02-24] MEDS: Ipratropium/Albuterol Neb 3 ML IH SCH ×6 (03:10→23:54)
[2017-02-24] MEDS: GuaiFENesin/Dextromethorphan TABLET PO SCH ×2 (05:25→21:14)
[2017-02-24] MEDS: *HR* Heparin 5,000 UNIT/ML VIAL SQ SCH ×2 (05:26→18:29)
[2017-02-24 06:55] LABS: Basophils % 0.4 %; Eosinophils # 0.3 K/mcL (0.0-0.6); Eosinophils % 5.6 %; Hematocrit 26.2 % (37.5-50.1); Hemoglobin 8.6 g/dL (12.9-16.9); Immature Granulocytes % 0.7 % (0-4); Lymphocytes # 1.4 K/mcL (0.6-4.6); Lymphocytes % 31.8 %; Mean Corpuscular HGB Conc 32.8 g/dL (31.6-35.5); Mean Corpuscular Hemoglobin 31.4 pg (28.0-33.3); Mean Corpuscular Volume 95.6 fL (83.0-100.0); Mean Platelet Volume 8.7 fL (9.4-12.4); Monocytes # 0.3 K/mcL (0.0-1.3); Monocytes % 5.8 %; Neutrophils # 2.5 K/mcL (1.6-8.9); Nucleated Red Blood Cells 0.4 /100 WBC (0); Platelet Count 145 K/mcL (140-400); Red Blood Count 2.74 M/mcL (4.19-5.50); Red Cell Distribution Width 14.6 % (11.5-14.5); Segmented Neutrophils % 55.7 %
[2017-02-24 07:06] LABS: BUN/Creatinine Ratio 21 (6-26); Blood Urea Nitrogen 17 mg/dL (8-26); Calcium 7.4 mg/dL (8.6-10.8); Carbon Dioxide 26 mEq/L (19-29); Chloride 104 mEq/L (98-109); Glucose 103 mg/dL (70-99); Osmolality,Calculated 286 (280-300); Potassium 3.5 mEq/L (3.5-4.5); Sodium 137 mEq/L (136-145); eGFR For African Americans > 60 (> 60); eGFR For Non-African Americans > 60 (> 60)
[2017-02-24] MEDS: Budesonide Neb 0.5 MG/2 ML IH SCH (07:24)
[2017-02-24] MEDS: Insulin LISPRO 300 UNITS/3 ML VIAL SQ SCH ×4 (07:36→22:00)
[2017-02-24] MEDS: Sennosides 8.6 MG TABLET PO SCH (10:06)
[2017-02-24] MEDS: Loratadine 10 MG TABLET PO SCH (10:06)
[2017-02-24] MEDS: Folic Acid 1 MG TABLET PO SCH (10:07)
[2017-02-24] MEDS: Finasteride 5 MG TABLET PO SCH (10:07)
[2017-02-24] MEDS: Aspirin Enteric Coated 81 MG Tablet PO SCH (10:07)
--- NOTE | 2017-02-24 11:13 | Palliative Progress Note ---
Date of Encounter: 02/24/17 Time of Encounter: 09:50 - Assessment and plan (1) Severe protein-calorie malnutrition Current Visit: Yes Status: Acute Assessment and plan: Continue to encourage meals/supplements. Continues on Remeron/Megace. Daughter states ate well this weekend, however, po intake has been minimal yesterday and today. He does snack on candy at bedside. (2) Dyspnea Current Visit: Yes Status: Acute Assessment and plan: On room air and denies at this time. Has low dose Roxanol PRN if needed. Qualifiers: Dyspnea type: unspecified Qualified Code(s): R06.00 - Dyspnea, unspecified (3) Counseling regarding advanced care planning and goals of care Current Visit: Yes Status: Acute Assessment and plan: Long discussion with panfilo Allen at bedside. She states her dad really does not want to go back to ECF, so they are considering taking him home. Discussed ECF/home palliative/hospice care at length - she needs to speak with pt's and will consider options. She states that she desires diuretics to continue and would like to have him evaluated for paracentesis. D/W Dr. Schneider. Will continue to follow. (4) Adult failure to thrive Current Visit: Yes Status: Acute (5) PNA (pneumonia) Current Visit: Yes Status: Suspected Qualifiers: Pneumonia type: due to unspecified organism Laterality: bilateral (6) Cirrhosis Current Visit: Yes Status: Acute Qualifiers: Hepatic cirrhosis type: alcoholic cirrhosis Ascites presence: with ascites Qualified Code(s): K70.31 - Alcoholic cirrhosis of liver with ascites - Time Spent With Patient Total time spent is greater than 50% in coordination of care (as documented) at patient's floor/unit and/or counseling patient: 25 - 35 minutes - Subjective Interval history: Patient sleeping on my arrival. Daughter Tiffany at bedside. She came and spent the night. He developed resp distress last pm, which Tiffany states has improved with diuretics. Appears very weak. Awakens easily, but states "feel terrible and was up all night". Does not stay awake for conversation. Denies pain or dyspnea. - Constitutional Vitals: Abnormal lab results RBC 2.74 M/mcL (4.19-5.50) L 02/24/17 06:40 Hgb 8.6 g/dL (12.9-16.9) L 02/24/17 06:40 Hct 26.2 % (37.5-50.1) L 02/24/17 06:40 RDW 14.6 % (11.5-14.5) H 02/24/17 06:40 MPV 8.7 fL (9.4-12.4) L 02/24/17 06:40 Nucleated RBCs/100 WBC 0.4 /100 WBC (0) H 02/24/17 06:40 PT 13.2 Seconds (9.4-12.1) H 02/20/17 15:00 Glucose 103 mg/dL (70-99) H 02/24/17 06:40 POC Glucose 92 (58-89) H 02/24/17 07:32 Calcium 7.4 mg/dL (8.6-10.8) L 02/24/17 06:40 Ammonia 14 mcmol/L (18-72) L 02/20/17 15:00 B-Natriuretic Peptide 843 pg/mL (0-100) H 02/20/17 15:00 Serum Total Protein 5.0 g/dL (6.0-8.3) L 02/23/17 05:35 Albumin 1.6 g/dL (3.5-5.0) L 02/23/17 05:35 Albumin/Globulin Ratio 0.5 (1.1-2.2) L 02/23/17 05:35 Prealbumin 5.0 mg/dL (18.0-45.0) L 02/21/17 05:28 TSH 29.711 mcIU/mL (0.350-4.840) H 02/21/17 05:28 Ur Specimen Adequacy See below A 02/20/17 14:55 Urine Color Red (Yellow) A 02/20/17 14:55 Urine Protein 30 mg/dL (Neg-Trace) H 02/20/17 14:55 Urine Blood Large (Negative) H 02/20/17 14:55 Ur Leukocyte Esterase Large (Negative) H 02/20/17 14:55 Ur Culture Indicated? YES (NO) A 02/20/17 14:55 General appearance: Present: no acute distress - Respiratory Additional comments: Audible rhonchi throughout - Cardiovascular Cardiovascular exam: Present: +S1, +S2, systolic murmur - GI/Abdominal GI/Abdominal exam: Present: diminished bowel sounds, distended, firm - Extremities Exam Additional comments: 2-3+ edema lower extremities - Neurological Exam Neurological exam: Present: alert Additional comments: Awakens easily, but drifts back to sleep quickly. Does follow simple commands. - Skin Skin exam: Present: dry, pallor, warm Palliative Quality Palliative Quality: Screen for Code Status: Yes, Screen for Goals of Care: Yes, Screen for Pain: Yes, If Pain Regimen Started, Initiate Bowel Regimen: Yes, Screen for Nausea/Vomitting: Yes Code Status: 02/23/17 16:06 DNR [Resuscitation Status: Active] [RES] Routine Comment: Resuscitation Status: DNR-Comfort Care-Arrest - Labs CBC & Chem 7: 02/24/17 06:40 02/24/17 06:40 Labs: Laboratory Results - last 24 hr 02/21/17 02/23/17 02/23/17 22:13 11:02 15:48 WBC RBC Hgb Hct MCV MCH MCHC RDW Plt Count MPV Immature Gran % Seg Neutrophils % Lymphocytes % Monocytes % Eosinophils % Basophils % Neutrophils # Lymphocytes # Monocytes # Eosinophils # Basophils # Nucleated RBCs/100 WBC Sodium Potassium Chloride Carbon Dioxide BUN Creatinine Est GFR ( Amer) Est GFR (Non-Af Amer) BUN/Creatinine Ratio Glucose POC Glucose 98 H 101 H 163 H Calculated Osmolality Calcium 02/23/17 02/24/17 02/24/17 21:03 06:40 06:40 WBC 4.5 RBC 2.74 L Hgb 8.6 L Hct 26.2 L MCV 95.6 MCH 31.4 MCHC 32.8 RDW 14.6 H Plt Count 145 MPV 8.7 L Immature Gran % 0.7 Seg Neutrophils % 55.7 Lymphocytes % 31.8 Monocytes % 5.8 Eosinophils % 5.6 Basophils % 0.4 Neutrophils # 2.5 Lymphocytes # 1.4 Monocytes # 0.3 Eosinophils # 0.3 Basophils # 0.0 Nucleated RBCs/100 WBC 0.4 H Sodium 137 Potassium 3.5 Chloride 104 Carbon Dioxide 26 BUN 17 Creatinine 0.80 Est GFR ( Amer) > 60 Est GFR (Non-Af Amer) > 60 BUN/Creatinine Ratio 21 Glucose 103 H POC Glucose 149 H Calculated Osmolality 286 Calcium 7.4 L 02/24/17 07:32 WBC RBC Hgb Hct MCV MCH MCHC RDW Plt Count MPV Immature Gran % Seg Neutrophils % Lymphocytes % Monocytes % Eosinophils % Basophils % Neutrophils # Lymphocytes # Monocytes # Eosinophils # Basophils # Nucleated RBCs/100 WBC Sodium Potassium Chloride Carbon Dioxide BUN Creatinine Est GFR ( Amer) Est GFR (Non-Af Amer) BUN/Creatinine Ratio Glucose POC Glucose 92 H Calculated Osmolality Calcium - Impressions Impressions Chest X-Ray 02/24/17 00:10 IMPRESSION: Persistent but improving pulmonary edema. Small right pleural effusion. D/ / Tommie Mcarthur MD / Tommie Mcarthur MD Interpreting Provider: Tommie Mcarthur MD - ABG Interpretation ABG results: PT/INR, D-dimer PT 13.2 Seconds (9.4-12.1) H 02/20/17 15:00 Consult Discharge Plan - Plan Referrals: NONE,PCP [Primary Care Provider] -
[2017-02-24] MEDS: Furosemide 40 MG/4 ML VIAL IVP SCH (16:15)
--- NOTE | 2017-02-24 18:11 | Internal Med Progress Note ---
Date of Encounter: 02/24/17 Time of Encounter: 18:09 - Assessment and plan (1) Acute exacerbation of CHF (congestive heart failure) Current Visit: Yes Status: Suspected Qualifiers: Congestive heart failure type: unspecified congestive heart failure type Qualified Code(s): I50.9 - Heart failure, unspecified (2) Acute exacerbation of chronic obstructive airways disease Current Visit: Yes Status: Acute (3) PNA (pneumonia) Current Visit: Yes Status: Suspected Qualifiers: Pneumonia type: due to unspecified organism Laterality: bilateral Lung location: unspecified part of lung Qualified Code(s): J18.9 - Pneumonia, unspecified organism (4) Altered mental status Current Visit: No Status: Acute Qualifiers: Altered mental status type: delirium Qualified Code(s): R41.0 - Disorientation, unspecified (5) Mitral valve stenosis Current Visit: No Status: Acute Qualifiers: Cardiac valve disease etiology: etiology unspecified Qualified Code(s): I05.0 - Rheumatic mitral stenosis (6) Hypertension Current Visit: No Status: Acute Qualifiers: Hypertension type: essential hypertension Qualified Code(s): I10 - Essential (primary) hypertension (7) CAD (coronary artery disease) Current Visit: No Status: Acute Qualifiers: Coronary Disease-Associated Artery/Lesion type: [place] artery [place] vs. transplanted heart: [place] heart Associated angina: without angina Qualified Code(s): I25.10 - Atherosclerotic heart disease of [place] coronary artery without angina pectoris (8) Severe protein-calorie malnutrition Current Visit: Yes Status: Acute - Subjective Interval history: Mr. Branden Keenan is a 81-year-old male who has been admitted for failure to thrive, pneumonia and COPD exacerbation, liver cirrhosis. Palliative care is involved. Patient has been diagnosed with pneumonia and UTI. As he was seen today he states that his breathing is somewhat better but is still not stable. He was noted congested and was given some IV Lasix last night. I noted some JVD. He has history of severe mitral stenosis. For now will try to diurese him as on bilateral lung exam is quite crackly. Palliative care is working on his disposition. Will add nebulizers and IV steroids and request PT OT evaluation as family is not sure if he will be hospice care or have it if he will go to care home. He is known to have severe mitral valve stenosis but not a surgical candidate. - Constitutional Vitals: Temp Pulse Resp BP Pulse Ox 98.2 F 87 17 108/72 96 02/24/17 15:34 02/24/17 15:34 02/24/17 16:47 02/24/17 15:34 02/24/17 16:47 General appearance: Present: cachectic, cooperative, pleasant, no acute distress , answers questions appropriately - Head Head exam: Present: atraumatic, normocephalic - Eye Eye exam: Present: PERRL, conjuntiva pink, sclera anicteric Pupils: Present: PERRL - Neck Neck exam general surgery: Present: supple, trachea midline. Absent: lymphadenopathy - Respiratory Respiratory exam: Present: CTAB, rhonchi. Absent: accessory muscle use, rales, wheezes - Cardiovascular Cardiovascular exam: Present: RRR, +S1, +S2. Absent: diastolic murmur, gallop, rubs, systolic murmur - GI/Abdominal GI/Abdominal exam: Present: normal bowel sounds, soft, no peritoneal signs. Absent: distended, tenderness - Extremities Exam Extremities exam: Present: warm, radial pulses palpable and symmetrical. Absent : calf tenderness, cyanotic, pedal edema - Neurological Exam Neurological exam: Present: CN II-XII intact, oriented X3, no focal deficits. Absent: pronater drift, facial droop, speech deficit - Skin Skin exam: Present: dry, intact Internal Medicine: Result - Labs CBC & Chem 7: 02/24/17 06:40 02/24/17 06:40 Labs: Short CBC 02/24/17 Range/Units 06:40 WBC 4.5 (4.3-11.1) K/mcL Hgb 8.6 L (12.9-16.9) g/dL Hct 26.2 L (37.5-50.1) % Plt Count 145 (140-400) K/mcL Neutrophils # 2.5 (1.6-8.9) K/mcL BMP 02/24/17 06:40 Sodium 137 Potassium 3.5 Chloride 104 Carbon Dioxide 26 BUN 17 Creatinine 0.80 Glucose 103 H Calcium 7.4 L - ABG Interpretation ABG results: PT/INR, D-dimer PT 13.2 Seconds (9.4-12.1) H 02/20/17 15:00 - Impressions Impressions Chest X-Ray 02/24/17 00:10 IMPRESSION: Persistent but improving pulmonary edema. Small right pleural effusion. D/ / Tommie Mcarthur MD / Tommie Mcarthur MD Interpreting Provider: Tommie Mcarthur MD Consult Discharge Plan - Plan Referrals: NONE,PCP [Primary Care Provider] -
--- NOTE | 2017-02-24 19:43 | Event Note ---
Date of Encounter: 02/24/17
[2017-02-24] MEDS: Mirtazapine 15 MG TABLET PO SCH (21:14)
[2017-02-25] MEDS: Ampicillin/Sulbactam 1,500 MG in 0.9 % Sodium Chloride Mini Bag 100 ML IVPB SCH ×4 (02:32→17:31)
[2017-02-25 03:27] LABS: BUN/Creatinine Ratio 23 (6-26); Blood Urea Nitrogen 19 mg/dL (8-26); Calcium 7.5 mg/dL (8.6-10.8); Carbon Dioxide 28 mEq/L (19-29); Chloride 104 mEq/L (98-109); Glucose 98 mg/dL (70-99); Magnesium 1.5 mg/dL (1.6-2.6); Osmolality,Calculated 284 (280-300); Sodium 136 mEq/L (136-145); eGFR For African Americans > 60 (> 60); eGFR For Non-African Americans > 60 (> 60)
[2017-02-25] MEDS: Ipratropium/Albuterol Neb 3 ML IH SCH ×6 (03:49→23:58)
[2017-02-25] MEDS: *HR* Heparin 5,000 UNIT/ML VIAL SQ SCH ×2 (06:49→17:31)
[2017-02-25] MEDS: Insulin LISPRO 300 UNITS/3 ML VIAL SQ SCH ×4 (07:25→21:35)
[2017-02-25] MEDS: Budesonide Neb 0.5 MG/2 ML IH SCH (07:46)
[2017-02-25] MEDS: Furosemide 40 MG/4 ML VIAL IVP SCH ×2 (09:27→17:30)
[2017-02-25] MEDS: GuaiFENesin/Dextromethorphan TABLET PO SCH ×2 (09:27→21:26)
[2017-02-25] MEDS: Folic Acid 1 MG TABLET PO SCH (09:27)
--- NOTE | 2017-02-25 09:27 | Palliative Progress Note ---
Date of Encounter: 02/25/17 Time of Encounter: 08:50 - Assessment and plan (1) Severe protein-calorie malnutrition Current Visit: Yes Status: Acute Assessment and plan: Continue appetite stimulants and encourage po. He is much more alert today and sitting up trying to eat breakfast. Monitor (2) Dyspnea Current Visit: Yes Status: Acute Assessment and plan: Improved with IV diuretics Qualifiers: Dyspnea type: unspecified Qualified Code(s): R06.00 - Dyspnea, unspecified (3) Counseling regarding advanced care planning and goals of care Current Visit: Yes Status: Acute Assessment and plan: Daughter not present. Will f/u with her today re: goals of care discussion and discharge disposition (4) Adult failure to thrive Current Visit: Yes Status: Acute (5) PNA (pneumonia) Current Visit: Yes Status: Suspected Qualifiers: Pneumonia type: due to unspecified organism Laterality: bilateral Lung location: unspecified part of lung Qualified Code(s): J18.9 - Pneumonia, unspecified organism (6) Cirrhosis Current Visit: Yes Status: Acute Qualifiers: Hepatic cirrhosis type: alcoholic cirrhosis Ascites presence: with ascites Qualified Code(s): K70.31 - Alcoholic cirrhosis of liver with ascites - Time Spent With Patient Total time spent is greater than 50% in coordination of care (as documented) at patient's floor/unit and/or counseling patient: 25 - 35 minutes - Subjective Interval history: Patient awake and alert this am. Pleasant and answering questions. Assisted with sitting up in bed and he is trying to eat some breakfast. Denies complaints, states breathing better. Less audible rhonchi than yesterday. No family present - Constitutional Vitals: Abnormal lab results RBC 2.74 M/mcL (4.19-5.50) L 02/24/17 06:40 Hgb 8.6 g/dL (12.9-16.9) L 02/24/17 06:40 Hct 26.2 % (37.5-50.1) L 02/24/17 06:40 RDW 14.6 % (11.5-14.5) H 02/24/17 06:40 MPV 8.7 fL (9.4-12.4) L 02/24/17 06:40 Nucleated RBCs/100 WBC 0.4 /100 WBC (0) H 02/24/17 06:40 PT 13.2 Seconds (9.4-12.1) H 02/20/17 15:00 POC Glucose 102 (58-89) H 02/25/17 07:24 Calcium 7.5 mg/dL (8.6-10.8) L 02/25/17 02:58 Magnesium 1.5 mg/dL (1.6-2.6) L 02/25/17 02:58 Ammonia 14 mcmol/L (18-72) L 02/20/17 15:00 B-Natriuretic Peptide 843 pg/mL (0-100) H 02/20/17 15:00 Serum Total Protein 5.0 g/dL (6.0-8.3) L 02/23/17 05:35 Albumin 1.6 g/dL (3.5-5.0) L 02/23/17 05:35 Albumin/Globulin Ratio 0.5 (1.1-2.2) L 02/23/17 05:35 Prealbumin 5.0 mg/dL (18.0-45.0) L 02/21/17 05:28 TSH 29.711 mcIU/mL (0.350-4.840) H 02/21/17 05:28 Ur Specimen Adequacy See below A 02/20/17 14:55 Urine Color Red (Yellow) A 02/20/17 14:55 Urine Protein 30 mg/dL (Neg-Trace) H 02/20/17 14:55 Urine Blood Large (Negative) H 02/20/17 14:55 Ur Leukocyte Esterase Large (Negative) H 02/20/17 14:55 Ur Culture Indicated? YES (NO) A 02/20/17 14:55 General appearance: Present: no acute distress - Respiratory Additional comments: Scattered rhonchi throughout - Cardiovascular Cardiovascular exam: Present: +S1, +S2, systolic murmur - GI/Abdominal GI/Abdominal exam: Present: distended, normal bowel sounds - Additional comments: Pierce with light gideon urine - Extremities Exam Additional comments: 2-3+ lower extremity edema bilaterally - Neurological Exam Neurological exam: Present: alert - Skin Skin exam: Present: dry, pallor, warm Palliative Quality Palliative Quality: Screen for Code Status: Yes, Screen for Goals of Care: Yes, Screen for Pain: Yes, If Pain Regimen Started, Initiate Bowel Regimen: Yes, Screen for Nausea/Vomitting: Yes Code Status: 02/23/17 16:06 DNR [Resuscitation Status: Active] [RES] Routine Comment: Resuscitation Status: DNR-Comfort Care-Arrest - Labs CBC & Chem 7: 02/24/17 06:40 02/25/17 02:58 Labs: Laboratory Results - last 24 hr 02/24/17 02/24/17 02/24/17 10:45 12:10 15:38 Sodium Potassium Chloride Carbon Dioxide BUN Creatinine Est GFR ( Amer) Est GFR (Non-Af Amer) BUN/Creatinine Ratio Glucose POC Glucose 156 H 108 H 141 H Calculated Osmolality Calcium Magnesium 02/24/17 02/25/17 02/25/17 20:05 02:58 07:24 Sodium 136 Potassium 4.0 Chloride 104 Carbon Dioxide 28 BUN 19 Creatinine 0.83 Est GFR ( Amer) > 60 Est GFR (Non-Af Amer) > 60 BUN/Creatinine Ratio 23 Glucose 98 POC Glucose 114 H 102 H Calculated Osmolality 284 Calcium 7.5 L Magnesium 1.5 L - ABG Interpretation ABG results: PT/INR, D-dimer PT 13.2 Seconds (9.4-12.1) H 02/20/17 15:00 Consult Discharge Plan - Plan Referrals: NONE,PCP [Primary Care Provider] -
[2017-02-25] MEDS: Finasteride 5 MG TABLET PO SCH (09:28)
[2017-02-25] MEDS: Loratadine 10 MG TABLET PO SCH (09:28)
[2017-02-25] MEDS: Sennosides 8.6 MG TABLET PO SCH (09:28)
[2017-02-25] MEDS: Aspirin Enteric Coated 81 MG Tablet PO SCH (09:28)
[2017-02-25] MEDS ORDERED: Magnesium Sulfate 2 GM in D5% in Water 100 ML IVPB ONE (10:26)
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
[2017-02-25] MEDS: Mirtazapine 15 MG TABLET PO SCH (21:25)
[2017-02-26] MEDS: Ampicillin/Sulbactam 1,500 MG in 0.9 % Sodium Chloride Mini Bag 100 ML IVPB SCH ×3 (00:18→11:26)
[2017-02-26 04:08] LABS: BUN/Creatinine Ratio 24 (6-26); Blood Urea Nitrogen 19 mg/dL (8-26); Calcium 7.5 mg/dL (8.6-10.8); Carbon Dioxide 27 mEq/L (19-29); Chloride 105 mEq/L (98-109); Glucose 91 mg/dL (70-99); Osmolality,Calculated 288 (280-300); Potassium 3.9 mEq/L (3.5-4.5); Sodium 138 mEq/L (136-145); eGFR For African Americans > 60 (> 60); eGFR For Non-African Americans > 60 (> 60)
[2017-02-26] MEDS: Ipratropium/Albuterol Neb 3 ML IH SCH ×6 (04:23→23:27)
[2017-02-26] MEDS: *HR* Heparin 5,000 UNIT/ML VIAL SQ SCH ×2 (05:55→17:12)
[2017-02-26] MEDS: Budesonide Neb 0.5 MG/2 ML IH SCH (07:38)
[2017-02-26] MEDS: Insulin LISPRO 300 UNITS/3 ML VIAL SQ SCH ×4 (07:55→21:31)
[2017-02-26] MEDS: Finasteride 5 MG TABLET PO SCH (07:56)
[2017-02-26] MEDS: Aspirin Enteric Coated 81 MG Tablet PO SCH (07:56)
[2017-02-26] MEDS: GuaiFENesin/Dextromethorphan TABLET PO SCH ×2 (07:56→21:29)
[2017-02-26] MEDS: Furosemide 40 MG/4 ML VIAL IVP SCH (07:56)
[2017-02-26] MEDS: Loratadine 10 MG TABLET PO SCH (07:56)
[2017-02-26] MEDS: Sennosides 8.6 MG TABLET PO SCH (07:57)
[2017-02-26] MEDS: Folic Acid 1 MG TABLET PO SCH (07:57)
[2017-02-26 11:04] LABS: Thyroid Stimulating Hormone 29.282 mcIU/mL (0.350-4.840)
--- NOTE | 2017-02-26 14:16 | Discharge Summary ---
Date of Encounter: 02/26/17 Time of Encounter: 14:10 - Discharge Diagnosis (1) Acute exacerbation of CHF (congestive heart failure) Priority: Primary Status: Suspected Qualifiers: Congestive heart failure type: unspecified congestive heart failure type Qualified Code(s): I50.9 - Heart failure, unspecified (2) Acute exacerbation of chronic obstructive airways disease Priority: Primary Status: Acute (3) PNA (pneumonia) Priority: Secondary Status: Suspected Qualifiers: Pneumonia type: due to unspecified organism Laterality: bilateral Lung location: unspecified part of lung Qualified Code(s): J18.9 - Pneumonia, unspecified organism (4) Altered mental status Priority: Secondary Status: Acute Qualifiers: Altered mental status type: delirium Qualified Code(s): R41.0 - Disorientation, unspecified (5) Mitral valve stenosis Priority: Secondary Status: Acute Qualifiers: Cardiac valve disease etiology: etiology unspecified Qualified Code(s): I05.0 - Rheumatic mitral stenosis (6) Hypertension Priority: Secondary Status: Acute Qualifiers: Hypertension type: essential hypertension Qualified Code(s): I10 - Essential (primary) hypertension (7) CAD (coronary artery disease) Priority: Secondary Status: Acute Qualifiers: Coronary Disease-Associated Artery/Lesion type: [place] artery [place] vs. transplanted heart: [place] heart Associated angina: without angina Qualified Code(s): I25.10 - Atherosclerotic heart disease of [place] coronary artery without angina pectoris (8) Severe protein-calorie malnutrition Priority: Secondary Status: Acute (9) Hypothyroid Priority: Secondary Status: Acute Qualifiers: Hypothyroidism type: unspecified Qualified Code(s): E03.9 - Hypothyroidism , unspecified - Discharge Medications Prescriptions: Ipratropium/Albuterol Neb [Duoneb] 3 ml IH Q6HR #120 inhsol Amoxicillin/Clavulanate [AUGMENTIN Susp] 200 mg PO TIDWM #20 udc Levothyroxine [Synthroid] 125 mcg PO DAILY@0630 #30 tablet Megestrol Acetate [Megace] 40 mg PO DAILY #30 tablet Nitroglycerin [Nitrostat] 0.4 mg SL Q5M PRN #40 tab.subl PRN Reason: Chest Pain predniSONE [PredniSONE] 20 mg PO DAILY #12 tablet Home Medications: Albuterol Sulfate [Proair Hfa] 2 puff IH Q6H PRN 06/02/16 [History] Aspirin [Lo-Dose Aspirin EC] 81 mg PO DAILY 06/02/16 [History] Budesonide Neb [Pulmicort Neb] 0.5 mg IH QAM 06/02/16 [History] Docusate [Colace] 100 mg PO DAILY PRN 06/02/16 [History] Finasteride [Proscar] 5 mg PO DAILY 06/02/16 [History] Formoterol Fumarate [Perforomist] 20 mcg IH BID 06/02/16 [History] Montelukast [Singulair] 10 mg PO HS 06/02/16 [History] Simvastatin [Zocor] 20 mg PO HS 06/02/16 [History] Tamsulosin [Flomax] 0.4 mg PO BID 06/02/16 [History] Bisacodyl [Dulcolax] 10 mg RC DAILY PRN 02/20/17 [History] Cranberry Fruit Extract [Cranberry] 200 mg PO DAILY 02/20/17 [History] Folic Acid 1 mg PO DAILY 02/20/17 [History] Insulin LISPRO [HumaLOG] 2 - 10 units SQ AD 02/20/17 [History] Loratadine [Claritin] 10 mg PO DAILY 02/20/17 [History] Mirtazapine [Remeron] 45 mg PO HS 02/20/17 [History] Nebivolol HCl [Bystolic] 2.5 mg PO QPM 02/20/17 [History] Ondansetron [Zofran] 8 mg PO Q8H PRN 02/20/17 [History] Pantoprazole Sodium 40 mg PO BID 02/20/17 [History] Polyethylene Glycol 3350 [MiraLAX] 17 gm PO BID 02/20/17 [History] Potassium Chloride [Klor-Con 10] 20 meq PO QAM 02/20/17 [History] Sennosides [Senna] 8.6 mg PO QAM 02/20/17 [History] Amoxicillin/Clavulanate [AUGMENTIN Susp] 200 mg PO TIDWM #20 udc 02/26/17 [Rx] Furosemide [Lasix] 40 mg PO DAILY tablet 02/26/17 [Rx] Ipratropium/Albuterol Neb [Duoneb] 3 ml IH Q6HR #120 inhsol 02/26/17 [Rx] Levothyroxine [Synthroid] 125 mcg PO DAILY@0630 #30 tablet 02/26/17 [Rx] Megestrol Acetate [Megace] 40 mg PO DAILY #30 tablet 02/26/17 [Rx] Nitroglycerin [Nitrostat] 0.4 mg SL Q5M PRN #40 tab.subl 02/26/17 [Rx] predniSONE [PredniSONE] 20 mg PO DAILY #12 tablet 02/26/17 [Rx] Allergies/Adverse Reactions: 3 Allergy/AdvReac Type Severity Reaction Status Date / Time No Known Allergies Allergy Verified 06/02/16 12:01 Date of admission: 02/21/17 14:18 Primary care physician: PCP NONE Consults: 02/23/17 11:13 Consult to Palliative Care [CONS] Routine Comment: Consulting Provider: Palliative Care Jeni Reason for Consult: advanced cachexia Call Completed: Yes 02/26/17 08:16 Consult to Speech Therapy [CONS] Routine Comment: Evaluate, develop and implement POC Reason for Consult: Pt is coughing and choking after taking medications and drinking water Call Completed: No Discharging clinician: Giancarlo Schneider Anticipated date of discharge: 02/26/17 - Patient Status Disposition: Hospice - Home Condition: Fair Overall status at discharge: patient is progressing back to baseline - Discharge Instructions Follow Up With: NONE,PCP [Primary Care Provider] - - Diet and Activity Activity: resume usual activities as tolerated Diet: advance to your usual diet Hospital course: Mr. Branden Keenan is a 81-year-old male who has been admitted for failure to thrive, pneumonia and COPD exacerbation, liver cirrhosis. Palliative care is involved. Patient has been diagnosed with pneumonia and UTI. He was noted congested and was given some IV Lasix last night. I noted some JVD chest congestion. He has history of severe mitral stenosis for which she had detailed evaluation in in [facility] and was recommended to have valvuloplasty however the family did not follow up with that appointment.. He was diuresed aggressively and that helped him improving clinically as well as on his chest examination as JVD disappeared and his rhonchi became more dispersed. Patient felt much better after he was diuresed well and nebulizers and steroids were given. It was noted that his TSH is 29 and therefore I have increased his Synthroid and I suspect that after a few days he will feel more energized. His TSH needs to be repeated in 30 days. Palliative care is working on his disposition. An family has requested hospice at home.. He is known to have severe mitral valve stenosis. - Time Spent with Patient Total time spent providing and/or coordinating discharge services: Greater than 30 minutes - Constitutional Vitals: Temp Pulse Resp BP Pulse Ox 97.6 F 76 18 95/65 94 02/26/17 10:56 02/26/17 10:56 02/26/17 11:09 02/26/17 10:56 02/26/17 11:09 General appearance: Present: cachectic, cooperative, pleasant, no acute distress , answers questions appropriately - Head Head exam: Present: atraumatic, normocephalic - Eye Eye exam: Present: PERRL, conjuntiva pink, sclera anicteric Pupils: Present: PERRL - Neck Neck exam general surgery: Present: supple, trachea midline. Absent: lymphadenopathy - Respiratory Respiratory exam: Present: CTAB, rales, rhonchi. Absent: accessory muscle use, wheezes - Cardiovascular Cardiovascular exam: Present: RRR, +S1, +S2. Absent: diastolic murmur, gallop, rubs, systolic murmur - GI/Abdominal GI/Abdominal exam: Present: normal bowel sounds, soft, no peritoneal signs. Absent: distended, tenderness - Extremities Exam Extremities exam: Present: pedal edema, warm, radial pulses palpable and symmetrical. Absent: calf tenderness, cyanotic - Neurological Exam Neurological exam: Present: CN II-XII intact, oriented X3, no focal deficits. Absent: pronater drift, facial droop, speech deficit - Skin Skin exam: Present: dry, intact
--- NOTE | 2017-02-26 14:34 | Palliative Progress Note ---
Date of Encounter: 02/26/17 Time of Encounter: 13:00 - Assessment and plan (1) Counseling regarding advanced care planning and goals of care Current Visit: Yes Status: Acute Assessment and plan: Conducted phone conversation with daughter Tiffany. Tiffany felt that patient needed to stay in hospital at least another day for his dyspnea. I examined patient and patient is alert and eating candy. No oxygen on, desires room air and sats 95%. I provided detailed information related to patients normal labs and stable vital signs. Tiffany states that she desires for patient to return home with [facility] care. I provided support and empathy regrading her fathers condition and she desires that her father be in the best physical shape before discharging home. I told her I would discuss the case with [employer] and confirmed the need for W/C, over bed table, and mattress overlay. She verbalized understanding. Will collaborate with [employer] set-up home for DC. (2) Dyspnea Current Visit: No Status: Acute Assessment and plan: Roxonol for SOB. None used in past 24 hrs. Qualifiers: Dyspnea type: unspecified Qualified Code(s): R06.00 - Dyspnea, unspecified (3) Acute exacerbation of chronic obstructive airways disease Current Visit: Yes Status: Acute (4) Adult failure to thrive Current Visit: Yes Status: Acute (5) Hypothyroid Current Visit: Yes Status: Acute Qualifiers: Hypothyroidism type: unspecified Qualified Code(s): E03.9 - Hypothyroidism , unspecified - Time Spent With Patient Total time spent is greater than 50% in coordination of care (as documented) at patient's floor/unit and/or counseling patient: 25 - 35 minutes - Subjective Interval history: Patient alert. Eating candy at bedside. Denies having dentures for year and reports liking candy. Patient denies SOB or pain. O2 off at present and sating on RA 98%. - Constitutional Vitals: Abnormal lab results RBC 2.74 M/mcL (4.19-5.50) L 02/24/17 06:40 Hgb 8.6 g/dL (12.9-16.9) L 02/24/17 06:40 Hct 26.2 % (37.5-50.1) L 02/24/17 06:40 RDW 14.6 % (11.5-14.5) H 02/24/17 06:40 MPV 8.7 fL (9.4-12.4) L 02/24/17 06:40 Nucleated RBCs/100 WBC 0.4 /100 WBC (0) H 02/24/17 06:40 PT 13.2 Seconds (9.4-12.1) H 02/20/17 15:00 POC Glucose 94 (58-89) H 02/26/17 11:06 Calcium 7.5 mg/dL (8.6-10.8) L 02/26/17 03:36 Ammonia 14 mcmol/L (18-72) L 02/20/17 15:00 B-Natriuretic Peptide 843 pg/mL (0-100) H 02/20/17 15:00 Serum Total Protein 5.0 g/dL (6.0-8.3) L 02/23/17 05:35 Albumin 1.6 g/dL (3.5-5.0) L 02/23/17 05:35 Albumin/Globulin Ratio 0.5 (1.1-2.2) L 02/23/17 05:35 Prealbumin 5.0 mg/dL (18.0-45.0) L 02/21/17 05:28 TSH 29.282 mcIU/mL (0.350-4.840) H 02/26/17 03:36 Ur Specimen Adequacy See below A 02/20/17 14:55 Urine Color Red (Yellow) A 02/20/17 14:55 Urine Protein 30 mg/dL (Neg-Trace) H 02/20/17 14:55 Urine Blood Large (Negative) H 02/20/17 14:55 Ur Leukocyte Esterase Large (Negative) H 02/20/17 14:55 Ur Culture Indicated? YES (NO) A 02/20/17 14:55 - Head Head exam: Present: atraumatic - Eye Eye exam: Present: PERRL - ENT ENT exam: Present: mucous membranes dry - Neck Neck exam: Present: full ROM - Respiratory Respiratory exam: Present: decreased breath sounds - Cardiovascular Cardiovascular exam: Present: RRR, +S1, +S2 - GI/Abdominal GI/Abdominal exam: Present: normal bowel sounds (Pierce catheter with clear yellow urine), soft - Extremities Exam Extremities exam: Present: pedal edema (left ankle with 3+ pitting, right ankle 2+) - Neurological Exam Neurological exam: Present: alert, oriented X3 - Psychiatric Psychiatric exam: Present: normal affect, normal mood Palliative Quality Palliative Quality: Screen for Code Status: Yes, Screen for Goals of Care: Yes, Screen for Pain: Yes, If Pain Regimen Started, Initiate Bowel Regimen: Yes, Screen for Nausea/Vomitting: Yes Code Status: 02/23/17 16:06 DNR [Resuscitation Status: Active] [RES] Routine Comment: Resuscitation Status: DNR-Comfort Care-Arrest - Labs CBC & Chem 7: 02/24/17 06:40 02/26/17 03:36 Labs: Laboratory Results - last 24 hr 02/25/17 02/25/17 02/26/17 16:00 19:55 03:36 Sodium 138 Potassium 3.9 Chloride 105 Carbon Dioxide 27 BUN 19 Creatinine 0.78 Est GFR ( Amer) > 60 Est GFR (Non-Af Amer) > 60 BUN/Creatinine Ratio 24 Glucose 91 POC Glucose 101 H 178 H Calculated Osmolality 288 Calcium 7.5 L Magnesium 2.0 TSH 29.282 H 02/26/17 11:06 Sodium Potassium Chloride Carbon Dioxide BUN Creatinine Est GFR ( Amer) Est GFR (Non-Af Amer) BUN/Creatinine Ratio Glucose POC Glucose 94 H Calculated Osmolality Calcium Magnesium TSH - ABG Interpretation ABG results: PT/INR, D-dimer PT 13.2 Seconds (9.4-12.1) H 02/20/17 15:00 Consult Discharge Plan - Plan Referrals: NONE,PCP [Primary Care Provider] - Prescriptions: Ipratropium/Albuterol Neb [Duoneb] 3 ml IH Q6HR #120 inhsol Amoxicillin/Clavulanate [AUGMENTIN Susp] 200 mg PO TIDWM #20 udc Levothyroxine [Synthroid] 125 mcg PO DAILY@0630 #30 tablet Megestrol Acetate [Megace] 40 mg PO DAILY #30 tablet Morphine Oral CONC [Roxanol] 0.5 ml PO Q4H PRN #30 ml PRN Reason: Dyspnea Nitroglycerin [Nitrostat] 0.4 mg SL Q5M PRN #40 tab.subl PRN Reason: Chest Pain predniSONE [PredniSONE] 20 mg PO DAILY #12 tablet
--- NOTE | 2017-02-26 14:35 | Physician Discharge Referral ---
Home Health/Hosp Referral Info Transfer to: Home Health Attending Provider: ander Provider in Charge Post Discharge: PCP - Diagnosis (1) Acute exacerbation of CHF (congestive heart failure) Status: Suspected (2) Acute exacerbation of chronic obstructive airways disease Status: Acute (3) PNA (pneumonia) Status: Suspected (4) Altered mental status Status: Acute (5) Mitral valve stenosis Status: Acute (6) Hypertension Status: Acute (7) CAD (coronary artery disease) Status: Acute (8) Severe protein-calorie malnutrition Status: Acute (9) Hypothyroid Status: Acute - Respiratory Orders Smoking Cessation: Smoking cessation has been advised. For more information, call the [place] Tobacco Quit Line at 0-376-VBBF-NOW. - Diet/Nutrition Diet/Nutrition Orders: No Added Salt (WIL), Cardiac, No Concentrated Sweets, Pureed - Services Needed Following services are medically necessary services: Nursing, Home Health Aide, Med Social Work Home Care Orders: Home hospice - Transfer Medications Prescriptions: Ipratropium/Albuterol Neb [Duoneb] 3 ml IH Q6HR #120 inhsol Amoxicillin/Clavulanate [AUGMENTIN Susp] 200 mg PO TIDWM #20 udc Levothyroxine [Synthroid] 125 mcg PO DAILY@0630 #30 tablet Megestrol Acetate [Megace] 40 mg PO DAILY #30 tablet Nitroglycerin [Nitrostat] 0.4 mg SL Q5M PRN #40 tab.subl PRN Reason: Chest Pain predniSONE [PredniSONE] 20 mg PO DAILY #12 tablet Home Medications: Albuterol Sulfate [Proair Hfa] 2 puff IH Q6H PRN 06/02/16 [History] Aspirin [Lo-Dose Aspirin EC] 81 mg PO DAILY 06/02/16 [History] Budesonide Neb [Pulmicort Neb] 0.5 mg IH QAM 06/02/16 [History] Docusate [Colace] 100 mg PO DAILY PRN 06/02/16 [History] Finasteride [Proscar] 5 mg PO DAILY 06/02/16 [History] Formoterol Fumarate [Perforomist] 20 mcg IH BID 06/02/16 [History] Montelukast [Singulair] 10 mg PO HS 06/02/16 [History] Simvastatin [Zocor] 20 mg PO HS 06/02/16 [History] Tamsulosin [Flomax] 0.4 mg PO BID 06/02/16 [History] Bisacodyl [Dulcolax] 10 mg RC DAILY PRN 02/20/17 [History] Cranberry Fruit Extract [Cranberry] 200 mg PO DAILY 02/20/17 [History] Folic Acid 1 mg PO DAILY 02/20/17 [History] Insulin LISPRO [HumaLOG] 2 - 10 units SQ AD 02/20/17 [History] Loratadine [Claritin] 10 mg PO DAILY 02/20/17 [History] Mirtazapine [Remeron] 45 mg PO HS 02/20/17 [History] Nebivolol HCl [Bystolic] 2.5 mg PO QPM 02/20/17 [History] Ondansetron [Zofran] 8 mg PO Q8H PRN 02/20/17 [History] Pantoprazole Sodium 40 mg PO BID 02/20/17 [History] Polyethylene Glycol 3350 [MiraLAX] 17 gm PO BID 02/20/17 [History] Potassium Chloride [Klor-Con 10] 20 meq PO QAM 02/20/17 [History] Sennosides [Senna] 8.6 mg PO QAM 02/20/17 [History] Amoxicillin/Clavulanate [AUGMENTIN Susp] 200 mg PO TIDWM #20 udc 02/26/17 [Rx] Furosemide [Lasix] 40 mg PO DAILY tablet 02/26/17 [Rx] Ipratropium/Albuterol Neb [Duoneb] 3 ml IH Q6HR #120 inhsol 02/26/17 [Rx] Levothyroxine [Synthroid] 125 mcg PO DAILY@0630 #30 tablet 02/26/17 [Rx] Megestrol Acetate [Megace] 40 mg PO DAILY #30 tablet 02/26/17 [Rx] Nitroglycerin [Nitrostat] 0.4 mg SL Q5M PRN #40 tab.subl 02/26/17 [Rx] predniSONE [PredniSONE] 20 mg PO DAILY #12 tablet 02/26/17 [Rx] Allergies/Adverse Reactions: 3 Allergy/AdvReac Type Severity Reaction Status Date / Time No Known Allergies Allergy Verified 06/02/16 12:01 Certification: Further, I certify that my clinical findings support that this patient is homebound (i.e. absences from home require considerable and taxing effort and are for medical reasons or catholic services or infrequently or short duration when for other reasons) because: Homebound Reason: Patient requires assistance of a person or device to safely leave home, Leaving home requires considerable and taxing effort due to condition, Severity of cardiac or pulmonary status limits activity tolerance Attestation: My signature below is to certify that this patient is under my care and that I, or nurse practitioner, or a physician's accounting administrative assistant working with me, has a face-to -face encounter with this patient.
--- NOTE | 2017-02-26 15:33 | Event Note ---
Date of Encounter: 02/26/17 Time of Encounter: 15:15 Conducted phone conversation with patients daughter Tiffany. Confirmed desires to make patient DNRCC-A, DNI. She desires patient to be DC'd tomorrow to transition home with [facility] care. State Form for DNR complete and Roxonol prescription complete. Discussed case with Dr. Schneider and engineering production worker. Patient failed bedside swallow evaluation and is scheduled for Barium swallow. Will continue to follow.
[2017-02-26] MEDS: Amoxicillin/Clavulanate 200 MG/5 ML UDC PO SCH (17:12)
[2017-02-26] MEDS: Mirtazapine 15 MG TABLET PO SCH (21:30)
[2017-02-27 03:45] LABS: BUN/Creatinine Ratio 23 (6-26); Blood Urea Nitrogen 19 mg/dL (8-26); Calcium 7.4 mg/dL (8.6-10.8); Carbon Dioxide 28 mEq/L (19-29); Chloride 104 mEq/L (98-109); Glucose 92 mg/dL (70-99); Magnesium 1.9 mg/dL (1.6-2.6); Osmolality,Calculated 284 (280-300); Potassium 3.8 mEq/L (3.5-4.5); Sodium 136 mEq/L (136-145); eGFR For African Americans > 60 (> 60); eGFR For Non-African Americans > 60 (> 60)
[2017-02-27] MEDS: Ipratropium/Albuterol Neb 3 ML IH SCH ×4 (04:04→15:33)
[2017-02-27] MEDS: *HR* Heparin 5,000 UNIT/ML VIAL SQ SCH (05:54)
[2017-02-27] MEDS: Budesonide Neb 0.5 MG/2 ML IH SCH (08:01)
[2017-02-27] MEDS: Aspirin Enteric Coated 81 MG Tablet PO SCH (08:31)
[2017-02-27] MEDS: Insulin LISPRO 300 UNITS/3 ML VIAL SQ SCH ×2 (08:31→12:02)
[2017-02-27] MEDS: Amoxicillin/Clavulanate 200 MG/5 ML UDC PO SCH ×2 (08:31→12:30)
[2017-02-27] MEDS: Folic Acid 1 MG TABLET PO SCH (08:31)
[2017-02-27] MEDS: GuaiFENesin/Dextromethorphan TABLET PO SCH (08:32)
[2017-02-27] MEDS: Finasteride 5 MG TABLET PO SCH (08:32)
[2017-02-27] MEDS: Loratadine 10 MG TABLET PO SCH (08:32)
[2017-02-27] MEDS: Sennosides 8.6 MG TABLET PO SCH (08:32)
[2017-02-27] MEDS ORDERED: predniSONE 20 MG TABLET PO SCH ×2 (09:00→17:00)
[2017-02-27] MEDS ORDERED: Furosemide 40 MG/4 ML VIAL IVP SCH (09:00)
[2017-02-27] MEDS ORDERED: Furosemide 40 MG TABLET PO SCH (09:00)
--- NOTE | 2017-02-27 09:47 | Event Note ---
Date of Encounter: 02/27/17 Time of Encounter: 09:45 Unable to reach daughter, however, I did speak with [facility] account service representative, who states they met with daughter this am before she went to work to sign him into program. Daughter requested transport later this afternoon, and [facility] will set up his transport home, most likely around 1700. UPdated Antonieta, pt primary nurse, and Dr. Schneider.
[2017-02-27 11:08] VITALS: BP 125/77
--- NOTE | 2017-02-27 14:09 | Internal Med Progress Note ---
Date of Encounter: 02/27/17 Time of Encounter: 14:08 - Assessment and plan (1) Acute exacerbation of CHF (congestive heart failure) Current Visit: Yes Status: Suspected Qualifiers: Congestive heart failure type: unspecified congestive heart failure type Qualified Code(s): I50.9 - Heart failure, unspecified (2) Acute exacerbation of chronic obstructive airways disease Current Visit: Yes Status: Acute (3) PNA (pneumonia) Current Visit: Yes Status: Suspected Qualifiers: Pneumonia type: due to unspecified organism Laterality: bilateral Lung location: unspecified part of lung Qualified Code(s): J18.9 - Pneumonia, unspecified organism (4) Altered mental status Current Visit: No Status: Acute Qualifiers: Altered mental status type: delirium Qualified Code(s): R41.0 - Disorientation, unspecified (5) Mitral valve stenosis Current Visit: No Status: Acute Qualifiers: Cardiac valve disease etiology: etiology unspecified 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 transplanted heart: [place] heart Associated angina: without angina Qualified Code(s): I25.10 - Atherosclerotic heart disease of [place] coronary artery without angina pectoris (8) Severe protein-calorie malnutrition Current Visit: Yes Status: Acute (9) Hypothyroid Current Visit: Yes Status: Acute Qualifiers: Hypothyroidism type: unspecified Qualified Code(s): E03.9 - Hypothyroidism , unspecified - Subjective Interval history: Mr. Branden Keenan is a 81-year-old male who has been admitted for failure to thrive, pneumonia and COPD exacerbation, liver cirrhosis. Palliative care is involved. Patient has been diagnosed with pneumonia and UTI. As he was seen today he states that his breathing is somewhat better but is still not stable. He was noted congested and was given some IV Lasix last night. I noted some JVD. He has history of severe mitral stenosis. For now will try to diurese him as on bilateral lung exam is quite crackly. Palliative care is working on his disposition. Will add nebulizers and IV steroids and request PT OT evaluation as family is not sure if he will be hospice care or have it if he will go to shelter. He is known to have severe mitral valve stenosis but not a surgical candidate. patient feels much better breathing has improved. No JVD noted. Chest has only scattered rhonchi. Patient is improved. He can be discharged. Discharge summary has been dictated - Constitutional Vitals: Temp Pulse Resp BP Pulse Ox 98.2 F 77 22 125/77 96 02/27/17 11:03 02/27/17 11:03 02/27/17 11:03 02/27/17 11:03 02/27/17 11:03 General appearance: Present: cachectic, cooperative, pleasant, no acute distress , answers questions appropriately - Head Head exam: Present: atraumatic, normocephalic - Eye Eye exam: Present: PERRL, conjuntiva pink, sclera anicteric Pupils: Present: PERRL - Neck Neck exam general surgery: Present: supple, trachea midline. Absent: lymphadenopathy - Respiratory Respiratory exam: Present: CTAB, wheezes. Absent: accessory muscle use, rales, rhonchi - Cardiovascular Cardiovascular exam: Present: RRR, +S1, +S2. Absent: diastolic murmur, gallop, rubs, systolic murmur - GI/Abdominal GI/Abdominal exam: Present: normal bowel sounds, soft, no peritoneal signs. Absent: distended, tenderness - Extremities Exam Extremities exam: Present: warm, radial pulses palpable and symmetrical. Absent : calf tenderness, cyanotic, pedal edema - Neurological Exam Neurological exam: Present: CN II-XII intact, oriented X3, no focal deficits. Absent: pronater drift, facial droop, speech deficit - Skin Skin exam: Present: dry, intact Internal Medicine: Result - Labs CBC & Chem 7: 02/24/17 06:40 02/27/17 03:16 Labs: BMP 02/27/17 03:16 Sodium 136 Potassium 3.8 Chloride 104 Carbon Dioxide 28 BUN 19 Creatinine 0.84 Glucose 92 Calcium 7.4 L - ABG Interpretation ABG results: PT/INR, D-dimer PT 13.2 Seconds (9.4-12.1) H 02/20/17 15:00 - Impressions Impressions Videofluoroscopic Swallow 02/26/17 10:46 IMPRESSION: No laryngeal vestibular penetration or aspiration across thin and thick consistencies. Markedly delayed initiation of oral swallow. Please see separate speech pathology report for full discussion of findings and recommendations. D/ / 02/26/2017 16:07:33 Jani Trevizo MD / [facility] Interpreting Provider: Jani Trevizo MD Consult Discharge Plan - Plan Referrals: NONE,PCP [Primary Care Provider] - Prescriptions: Ipratropium/Albuterol Neb [Duoneb] 3 ml IH Q6HR #120 inhsol Amoxicillin/Clavulanate [AUGMENTIN Susp] 200 mg PO TIDWM #20 udc Levothyroxine [Synthroid] 125 mcg PO DAILY@0630 #30 tablet Megestrol Acetate [Megace] 40 mg PO DAILY #30 tablet Morphine Oral CONC [Roxanol] 0.5 ml PO Q4H PRN #30 ml PRN Reason: Dyspnea Nitroglycerin [Nitrostat] 0.4 mg SL Q5M PRN #40 tab.subl PRN Reason: Chest Pain predniSONE [PredniSONE] 10 mg PO DAILY #75 tablet
[2017-02-27] MEDS ORDERED: predniSONE 20 MG TABLET PO STA (14:10)
== END 2017-02-27 15:45 | disposition hospice, home (50) | DRG 291 ==
LOC: EMEROO 14:26 → 2ANU 14:26
PROVIDERS: ADMIT Family Medicine; ATTEND Internal Medicine